=== PATIENT | female | born 1935 | race Caucasian/White ===

== ENCOUNTER → 2016-09-03 | Outpatient (CLI) | payer BC ==
[~2016-09-03] MED LIST: AMLO-114 PO; ASCO500T16 PO; CEPH500C PO; CHOL100010 PO; CHOL100041 PO; COEN150C4 PO; FSMD/70 PO; LOSA100T26 PO; MULT-506 PO; OMEG10007 PO; SIMV20TA2 PO
== END | disposition home or self-care (01) ==
LOC: C.PATHSPEC 17:42
PROVIDERS: ATTEND Plastic Surgery
DX: C44.529 Squamous cell carcinoma of skin of other part of trunk (principal); L82.1 Other seborrheic keratosis

== ENCOUNTER → 2016-10-06 | Outpatient (CLI) | payer BC ==
[2016-10-06 13:36] LABS: ESTIMATED AVERAGE GLUCOSE 126 mg/dl; HA1C FLAG Normal (Normal)
[2016-10-06 14:03] LABS: ALT/SGPT 28 U/L (12-78); AST/SGOT 15 U/L (15-37); BLOOD UREA NITROGEN 22 mg/dl (7-18); BUN/CREATININE RATIO 19.5 (10-20); CALCIUM 9.9 mg/dl (8.5-10.1); CARBON DIOXIDE 28 mmol/L (21-32); CHLORIDE 103 mmol/L (98-107); CHOLESTEROL 151 mg/dl (0-200); GLUCOSE 97 mg/dl (70-99); POTASSIUM 3.8 mmol/L (3.5-5.1); SODIUM 141 mmol/L (136-145); TRIGLYCERIDES 112 mg/dl (0-150); VERY LOW DENSITY LIPOPROT CALC 22 mg/dl
[2016-10-06 14:06] LABS: CHOLESTEROL/HDL RATIO 2.3; HDL CHOLESTEROL 65 mg/dl; LDL CHOLESTEROL CALCULATED 64 mg/dl
== END | disposition home or self-care (01) ==
LOC: C.LABPVFM 11:31
PROVIDERS: ATTEND Family Medicine
DX: I10 Essential (primary) hypertension (principal); E11.9 Type 2 diabetes mellitus without complications; E78.5 Hyperlipidemia, unspecified

== ENCOUNTER 2017-01-24 14:07 | Emergency (ER) | payer BC ==
[~2017-01-24] VITALS: Ht 180.3 cm; Wt 88.7 kg
[~2017-01-24 14:07] MED LIST changes: -AMLO-114 PO; -CEPH500C PO; -CHOL100041 PO; -COEN150C4 PO; -LOSA100T26 PO; +LOSA100T33 PO; -MULT-506 PO
[2017-01-24 14:13] VITALS: TEMP 36.6; Ht 180.3 cm; Wt 88.7 kg
[2017-01-24 14:44] LABS: BASO % 0.6 %; BASO ABS # 0.03 K/uL (0-0.2); COMPLETE YES; HEMATOCRIT 40.9 % (37-47); IG% 0.2 %; LYMPH % 29.4 %; LYMPH ABS # 1.56 K/uL (1.2-3.4); MEAN CELL VOLUME 92.7 fL (80-100); MEAN CORPUSCULAR HEMOGLOBIN 32.2 pg (25-34); MEAN CORPUSCULAR HGB CONC 34.7 g/dl (32-36); MEAN PLATELET VOLUME 9.5 fL (7.4-10.4); MONO % 7.2 %; NEUT % 58.6 %; PLATELET COUNT 262 K/uL (130-400); RED BLOOD COUNT 4.41 M/uL (4.2-5.4)
[2017-01-24 15:00] LABS: BUN/CREATININE RATIO 22.5 (10-20); CALCIUM 9.4 mg/dl (8.5-10.1); CREATININE 1.3 mg/dl (0.60-1.20)
[2017-01-24] MEDS ORDERED: OPTIRAY 320 IV PRN (15:00)
[2017-01-24 15:02] LABS: ALB/GLOB RATIO 1.3 (0.9-2)
[2017-01-24 15:10] LABS: MANUAL MICROSCOPIC REQUIRED? NO; REVIEW REQ? NO; URINE APPEARANCE CLEAR (CLEAR); URINE BILIRUBIN NEG (NEG); URINE COLOR YELLOW; URINE EPITHELIAL CELL AUTO >30 /lpf (0-5); URINE NITRITE NEG (NEG); URINE PH 5.5 (4.5-7.5); URINE SPECIFIC GRAVITY 1.015 (1.000-1.030); UROBILINOGEN NEG (NEG); ZZUR CULT IF INDIC CLEAN CATCH YES
[2017-01-24] MEDS ORDERED: AMLO-114 PO (15:46)
[2017-01-24] MEDS ORDERED: CHOL100041 PO (15:46)
[2017-01-24] MEDS ORDERED: COEN150C4 PO (15:46)
[2017-01-24] MEDS ORDERED: MULT-506 PO (15:46)
--- NOTE | 2017-01-24 15:49 | DIAGNOSTIC IMAGING REPORT ---
CT ANGIOGRAM OF THE ABDOMEN AND PELVIS CLINICAL HISTORY: Lower abdominal pain. COMPARISON STUDY: Ultrasound of the abdominal aorta dated 06/06/2013. TECHNIQUE: Following the IV administration of 119 cc of Optiray 320, CT angiogram of the abdomen and pelvis was performed from the lung bases the proximal femora. Images are reviewed in the axial, sagittal, and coronal planes. 3-D MIPS images are created and assessed. IV contrast was administered without complication. CT DOSE: 968.93 mGy.cm FINDINGS: Lower chest: The heart is enlarged and without pericardial effusion. The lung bases are clear. There is a tiny hiatal hernia. Liver: The contrast-enhanced liver is normal in size, contour, and attenuation. There is no intrahepatic or ductal dilatation. Gallbladder: Contracted. Spleen: Normal in size and attenuation noting heterogeneous arterial phase enhancement. Pancreas: Moderately atrophic and grossly unremarkable. Adrenal glands: Unremarkable. Kidneys: The contrast enhanced kidneys are atrophic and without hydronephrosis. The kidneys enhance symmetrically. Abdominal aorta and iliac arteries: There is advanced atherosclerotic calcification of the abdominal aorta. The proximal and mid portions of the abdominal aorta are normal in caliber. There is an infrarenal abdominal aneurysm located just above the iliac bifurcation. This measures 4.3 cm in AP diameter and 4.5 cm in transverse diameter. The aneurysm sac extends 5.8 cm in craniocaudal length. There is thrombus within the aneurysm sac. The minimal patent luminal diameter measures 2.3 cm. There is no evidence of aortic dissection. The common iliac arteries are mildly ectatic and widely patent. The external iliac arteries as well as the common femoral arteries are widely patent. 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 The iliac arteries are patent. 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 Major branches of the abdominal aorta: The celiac trunk and superior mesenteric artery are widely patent. The inferior mesenteric artery arises from the aneurysm sac and there is mild narrowing at its origin secondary to soft plaque. The hepatic artery arises directly from the abdominal aorta. The splenic artery is widely patent. The main renal arteries are widely patent. A tiny accessory renal artery seen on the left. Bowel: The small bowel and colon are normal in course and caliber. There is moderate colonic diverticulosis without CT evidence of acute diverticulitis. Mild colonic fecal retention is observed. The appendix is well-visualized and normal. A right sided ischiorectal hernia is suggested on axial image #441. Peritoneum: There is no intraperitoneal free air or abdominal ascites. Lymphadenopathy: None. Pelvic viscera: The bladder is normal as visualized. The uterus is surgically absent. No adnexal lesion is seen. Skeletal structures: The skeletal structures are osteopenic. There is moderate lumbar sacral spondylosis and scoliosis. Sclerotic change is noted in the sacroiliac joints and pubic symphysis. No lytic or blastic bony lesions are seen. IMPRESSION: 1. 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 There is no evidence of rupture. 2. 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 3. Findings suggest a right-sided ischiorectal hernia. There is no evidence of rectal obstruction. Clinical correlation will be essential. 4. Cardiomegaly. 5. Moderate colonic diverticulosis without CT evidence of acute diverticulitis. 6. Additional findings as above. Electronically signed by: José Sarmiento M.D. 01/24/2017 3:47 PM Dictated Date/Time: 01/24/2017 3:28 PM
[2017-01-24] MEDS ORDERED: CEFTRIAXONE SOD INJ 1 GM ADDVIAL IV STA (17:04)
--- NOTE | 2017-01-24 17:35 | EMERGENCY ROOM VISIT NOTE ---
History Report prepared by Xuan: Gurinder Valenzuela Under the Supervision of: Dr. Rita Judd D.O. First contact with patient: 14:18 Chief Complaint: ABDOMINAL PAIN Stated Complaint: STABBING PAIN IN STOMACH History of Present Illness The patient is an 81 year old female who presents to the Emergency Room with complaints of sharp, intermittent, mid-line lower abdominal pain beginning this morning. She currently denies any discomfort. The patient states that she woke up this morning with the abdominal pain that does not radiate to any other part of the body. She denies numbness, tingling, fevers, chills, urinary changes, changes in her bowel movement, chest pain, shortness of breath, medicine changes , taking blood thinners, previous heart problems, and taking medication for pain. The patient states that she did not have pain yesterday, and she has never experienced symptoms like this before. She reports that she has an ultrasound every six months for an aortic aneurysm. The patient states that the last ultrasound showed that the aorta measured 4.6cm. She notes that she has a history of hypertension and hypercholesterolemia. Pt denies any worsening back pain, numbness/tingling, LE edema, discoloration of the legs, or different temperature sensations. Source of History: patient Onset: this morning Position: abdomen (mid-line, lower) Quality: sharp Timing: intermittent Associated Symptoms: No SOB, No chest pain, No chills, No fevers, No urinary symptoms Note: Pt denies numbness, tingling, and changes in her bowel movement. Review of Systems See HPI for pertinent positives & negatives. A total of 10 systems reviewed and were otherwise negative. Past Medical & Surgical Medical Problems: (1) Hypertension Family History No pertinent family history recorded. Social History Smoking Status: Never Smoker Marital Status: Housing Status: lives with family Occupation Status: retired Current/Historical Medications Scheduled Alendronate/Cholecalciferol (Fosamax+D 70MG/2800 Iu), 1 TABLET PO WK Amlodipine (Norvasc), 10 MG PO QAM Cephalexin Monohydrate (Keflex), 500 MG PO BID Cholecalciferol (D 1000), 5,000 INTER.UNIT PO DAILY Coenzyme Q10 (Ubidecarenone) (Coq10), 150 MG PO DAILY Losartan Potassium & Hydrochlo (Losartan Potassium/Hydroc), 1 TABLET PO DAILY Multivitamin (Multivitamin), 1 TAB PO DAILY Simvastatin (Zocor), 20 MG PO QPM Allergies Coded Allergies: Sulfa Antibiotics (Unverified Allergy, Unknown, UNKNOWN, 01/24/17) Physical Exam Vital Signs Date Time Temp Pulse Resp B/P Pulse Ox O2 Delivery O2 Flow Rate FiO2 01/24/17 18:01 55 20 120/66 93 01/24/17 16:46 59 16 116/71 97 Room Air 01/24/17 15:28 67 16 109/58 98 Room Air 01/24/17 14:13 36.6 70 22 122/80 95 Room Air Physical Exam GENERAL: alert, well appearing, well nourished, no distress, non-toxic EYE EXAM: normal conjunctiva, PERRL and EOM's grossly intact OROPHARYNX: no exudate, no erythema, lips, buccal mucosa, and tongue normal and mucous membranes are moist NECK: supple, no nuchal rigidity, no adenopathy, non-tender LUNGS: Clear to auscultation. Normal chest wall mechanics, CTA, no w/r/r HEART: no murmurs, S1 normal and S2 normal ABDOMEN: abdomen soft, non-tender, normo-active bowel sounds, no masses, no rebound or guarding, no pulsatile mass BACK: Back is symmetrical on inspection and there is no deformity, no midline tenderness, no CVA tenderness. SKIN: no rashes and no bruising UPPER EXTREMITIES: upper extremities are grossly normal. LOWER EXTREMITIES: No pitting edema, nml cap refill, nml pulses, no discoloration, normal temperature to touch NEURO EXAM: cranial nerves II-XII grossly intact, normal speech, no gross weakness of arms, no gross weakness of legs. Normal sensory exam, no facial droop. Medical Decision & Procedures ER Provider Diagnostic Interpretation: CT:Per my review, radiologist interpretation. CT ANGIOGRAM OF THE ABDOMEN AND PELVIS CLINICAL HISTORY: Lower abdominal pain. COMPARISON STUDY: Ultrasound of the abdominal aorta dated 06/06/2013. TECHNIQUE: Following the IV administration of 119 cc of Optiray 320, CT angiogram of the abdomen and pelvis was performed from the lung bases the proximal femora. Images are reviewed in the axial, sagittal, and coronal planes. 3-D MIPS images are created and assessed. IV contrast was administered without complication. CT DOSE: 968.93 mGy.cm FINDINGS: Lower chest: The heart is enlarged and without pericardial effusion. The lung bases are clear. There is a tiny hiatal hernia. Liver: The contrast-enhanced liver is normal in size, contour, and attenuation. There is no intrahepatic or ductal dilatation. Gallbladder: Contracted. Spleen: Normal in size and attenuation noting heterogeneous arterial phase enhancement. Pancreas: Moderately atrophic and grossly unremarkable. Adrenal glands: Unremarkable. Kidneys: The contrast enhanced kidneys are atrophic and without hydronephrosis. The kidneys enhance symmetrically. Abdominal aorta and iliac arteries: There is advanced atherosclerotic calcification of the abdominal aorta. The proximal and mid portions of the abdominal aorta are normal in caliber. There is an infrarenal abdominal aneurysm located just above the iliac bifurcation. This measures 4.3 cm in AP diameter and 4.5 cm in transverse diameter. The aneurysm sac extends 5.8 cm in craniocaudal length. There is thrombus within the aneurysm sac. The minimal patent luminal diameter measures 2.3 cm. There is no evidence of aortic dissection. The common iliac arteries are mildly ectatic and widely patent. The external iliac arteries as well as the common femoral arteries are widely patent. 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 The iliac arteries are patent. 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 Major branches of the abdominal aorta: The celiac trunk and superior mesenteric artery are widely patent. The inferior mesenteric artery arises from the aneurysm sac and there is mild narrowing at its origin secondary to soft plaque. The hepatic artery arises directly from the abdominal aorta. The splenic artery is widely patent. The main renal arteries are widely patent. A tiny accessory renal artery seen on the left. Bowel: The small bowel and colon are normal in course and caliber. There is moderate colonic diverticulosis without CT evidence of acute diverticulitis. Mild colonic fecal retention is observed. The appendix is well-visualized and normal. A right sided ischiorectal hernia is suggested on axial image #441. Peritoneum: There is no intraperitoneal free air or abdominal ascites. Lymphadenopathy: None. Pelvic viscera: The bladder is normal as visualized. The uterus is surgically absent. No adnexal lesion is seen. Skeletal structures: The skeletal structures are osteopenic. There is moderate lumbar sacral spondylosis and scoliosis. Sclerotic change is noted in the sacroiliac joints and pubic symphysis. No lytic or blastic bony lesions are seen. IMPRESSION: 1. 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 There is no evidence of rupture. 2. 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 3. Findings suggest a right-sided ischiorectal hernia. There is no evidence of rectal obstruction. Clinical correlation will be essential. 4. Cardiomegaly. 5. Moderate colonic diverticulosis without CT evidence of acute diverticulitis. 6. Additional findings as above. Electronically signed by: José Sarmiento M.D. 01/24/2017 3:47 PM Dictated Date/Time: 01/24/2017 3:28 PM Laboratory Results 01/24/17 14:25 Red Blood Count 4.41, Mean Corpuscular Volume 92.7, Mean Corpuscular Hemoglobin 32.2, Mean Corpuscular Hemoglobin Concent 34.7, Mean Platelet Volume 9.5, Neutrophils (%) (Auto) 58.6, Lymphocytes (%) (Auto) 29.4, Monocytes (%) (Auto) 7.2, Eosinophils (%) (Auto) 4.0, Basophils (%) (Auto) 0.6, Neutrophils # (Auto) 3.11, Lymphocytes # (Auto) 1.56, Monocytes # (Auto) 0.38, Eosinophils # (Auto) 0.21, Basophils # (Auto) 0.03 01/24/17 14:25 Test 01/24/17 14:25 01/24/17 14:43 01/24/17 14:49 White Blood Count 5.30 K/uL (4.8-10.8) Red Blood Count 4.41 M/uL (4.2-5.4) Hemoglobin 14.2 g/dL (12.0-16.0) Hematocrit 40.9 % (37-47) Mean Corpuscular Volume 92.7 fL (80-100) Mean Corpuscular Hemoglobin 32.2 pg (25-34) Mean Corpuscular Hemoglobin Concent 34.7 g/dl (32-36) Platelet Count 262 K/uL (130-400) Mean Platelet Volume 9.5 fL (7.4-10.4) Neutrophils (%) (Auto) 58.6 % Lymphocytes (%) (Auto) 29.4 % Monocytes (%) (Auto) 7.2 % Eosinophils (%) (Auto) 4.0 % Basophils (%) (Auto) 0.6 % Neutrophils # (Auto) 3.11 K/uL (1.4-6.5) Lymphocytes # (Auto) 1.56 K/uL (1.2-3.4) Monocytes # (Auto) 0.38 K/uL (0.11-0.59) Eosinophils # (Auto) 0.21 K/uL (0-0.5) Basophils # (Auto) 0.03 K/uL (0-0.2) RDW Standard Deviation 45.7 fL (36.4-46.3) RDW Coefficient of Variation 13.4 % (11.5-14.5) Immature Granulocyte % (Auto) 0.2 % Immature Granulocyte # (Auto) 0.01 K/uL (0.00-0.02) Anion Gap 8.0 mmol/L (3-11) Est Creatinine Clear Calc Drug Dose 42.5 ml/min Estimated GFR () 44.9 Estimated GFR (Non- 38.7 BUN/Creatinine Ratio 22.5 (10-20) Calcium Level 9.4 mg/dl (8.5-10.1) Total Bilirubin 0.4 mg/dl (0.2-1) Aspartate Amino Transf (AST/SGOT) 16 U/L (15-37) Alanine Aminotransferase (ALT/SGPT) 28 U/L (12-78) Alkaline Phosphatase 92 U/L (45-117) Total Protein 7.9 gm/dl (6.4-8.2) Albumin 4.4 gm/dl (3.4-5.0) Globulin 3.5 gm/dl (2.5-4.0) Albumin/Globulin Ratio 1.3 (0.9-2) Lipase 127 U/L (73-393) Urine Color YELLOW Urine Appearance CLEAR (CLEAR) Urine pH 5.5 (4.5-7.5) Urine Specific [place] 1.015 (1.000-1.030) Urine Protein NEG (NEG) Urine Glucose (UA) NEG (NEG) Urine Ketones NEG (NEG) Urine Occult Blood NEG (NEG) Urine Nitrite NEG (NEG) Urine Bilirubin NEG (NEG) Urine Urobilinogen NEG (NEG) Urine Leukocyte Esterase TRACE (NEG) Urine WBC (Auto) 10-30 /hpf (0-5) Urine RBC (Auto) 0-4 /hpf (0-4) Urine Hyaline Casts (Auto) 1-5 /lpf (0-5) Urine Epithelial Cells (Auto) >30 /lpf (0-5) Urine Bacteria (Auto) 1+ (NEG) Lactic Acid Level 1.5 mmol/L (0.4-2.0) Laboratory results per my review. Medications Administered Medications (Trade) Dose Ordered Sig/Wiley Route Start Time Stop Time Status Last Admin Dose Admin Ceftriaxone Sodium (Rocephin Inj) 1 gm NOW STAT IV 01/24/17 17:04 01/24/17 17:05 DC 01/24/17 17:10 1 GM ECG Indication: abdominal pain Rate (beats per minute): 77 Rhythm: normal sinus Findings: 1st degree AV block, PVC (occasional), no acute ischemic change ED Course 1425: The patient was evaluated in room B06. A complete history and physical exam was performed. 1704: Ordered Rocephin Inj 1gm IV 1715: I reevaluated the patient and updated her on her exam findings. She has not had any abdominal pain since she has been here. I discussed the treatment plan with her, and she verbalized complete understanding. The patient was discharged home. 1727: I discussed the patient's case with Dr. Sarmiento, Radiology. Medical Decision Differential diagnosis: Etiologies such as appendicitis, diverticulitis, PUD, biliary pathology, UTI, pancreatitis, obstruction, mesenteric ischemia, aortic pathology, infections, inflammatory bowel disease, renal colic, as well as others were entertained. AAA stable compared to known measurements by family from outpt US. Pt follows with vascular every 6 months. Other vascular findings from CT were discussed with pt and family. Likely chronic given lack of other symptoms, family given copy of report. Given that we are unable to contract Dr. Carlson currently for another pt in the ED, advised pt to call the beginning of the week. No recurrence of pain while in the ED. VS stable. Doubt occult dissection or leaking AAA. More likely related to constipation and possible early UTI. Urine culture sent as a precaution and pt started on antibiotics. Daughter in law states pt is supposed to be taking meds to help with her BM's and she doesn' t. Pt states goes every couple days, but had a normal BM this am. Pt well appearing tolerating po at bedside. Pt and family aware of all results, discussed need for close f/u with PCP and vascular, sx to watch/return for, they verbalized understanding and were agreeable with plan, Consults Time Called: 1723 Consulting Physician: Dr. Sarmiento, Radiology Returned Call: 1726 I discussed the patient's case with Dr. Sarmiento, Radiology. Impression Primary Impression: Lower abdominal pain Additional Impressions: UTI (urinary tract infection) Constipation AAA (abdominal aortic aneurysm) Scribe Attestation The scribe's documentation has been prepared under my direction and personally reviewed by me in its entirety. I confirm that the note above accurately reflects all work, treatment, procedures, and medical decision making performed by me. Departure Information Dispostion Home / Self-Care Prescriptions Cephalexin Monohydrate (Keflex) 500 Mg Cap 500 MG PO BID for 7 Days, #14 CAP Prov: Rita Judd, DO 01/24/17 Referrals Marshall Coreas M.D. (PCP) Patient Instructions My [facility] Additional Instructions Please call and follow-up with your family doctor and with Dr. Carlson next week. Please take the antibiotics as prescribed. Please restart your medications for constipation and make sure you are drinking plenty of water. If you have recurrent abdominal pain, develop fevers/chills, dizziness, numbness /tingling in your legs, swelling in your legs, discoloration of your legs/ abdomen, back pain, vomiting, or you have any other new or concerning symptoms, please return to the emergency room. Problem Qualifiers Additional Impressions: UTI (urinary tract infection) Urinary tract infection type: acute cystitis Hematuria presence: without hematuria Qualified Codes: N30.00 - Acute cystitis without hematuria Constipation Constipation type: unspecified constipation type Qualified Codes: K59.00 - Constipation, unspecified AAA (abdominal aortic aneurysm) Presence of rupture: without rupture Qualified Codes: I71.4 - Abdominal aortic aneurysm, without rupture
[2017-01-24] MEDS ORDERED: CEPH500C PO (17:38)
[2017-01-24 18:01] VITALS: BP 120/66; PULSE 55; O2SAT 93
== END 2017-01-24 18:03 | disposition home or self-care (01) ==
LOC: C.EDB 14:08
DX: N39.0 Urinary tract infection, site not specified (principal); K59.00 Constipation, unspecified; I71.4 Abdominal aortic aneurysm, without rupture; I10 Essential (primary) hypertension; E78.00 Pure hypercholesterolemia, unspecified; Z79.899 Other long term (current) drug therapy

== ENCOUNTER → 2017-02-02 | Outpatient (CLI) | payer BC ==
[~2017-02-02] MED LIST changes: +AMLO-114 PO; -ASCO500T16 PO; -CHOL100010 PO; +CHOL100041 PO; +COEN150C4 PO; +MULT-506 PO; -OMEG10007 PO
--- NOTE | 2017-02-02 13:16 | MAMMOGRAPHY REPORT ---
BILATERAL DIGITAL SCREENING MAMMOGRAM WITH CAD: 02/02/2017 CLINICAL HISTORY: Routine screening. Patient has no complaints. TECHNIQUE: Bilateral CC, MLO and axial views were obtained. Current study was also evaluated with a Computer Aided Detection (CAD) system. COMPARISON: Comparison is made to exams dated: 01/29/2016 mammogram, 01/24/2015 mammogram, 01/20/2014 m ammogram, 01/19/2013 mammogram, 01/19/2012 mammogram, and 01/15/2011 mammogram - [facility] enter. BREAST COMPOSITION: The tissue of both breasts is almost entirely fatty. FINDINGS: There are stable benign-appearing calcifications within the right breast. No new suspiciou s mass, architectural distortion or cluster of microcalcifications is seen. IMPRESSION: ACR BI-RADS CATEGORY 1: NEGATIVE There is no mammographic evidence of malignancy. A 1 year screening mammogram is recommended. The pa tient will receive written notification of the results. Approximately 10% of breast cancers are not detected with mammography. A negative mammographic report should not delay biopsy if a clinically suggestive mass is present. Gisell Randolph M.D. ay/:02/02/2017 09:22:33 Maintenance Truck Driver: Lopez MILLS(July)(Antonio), [facility] letter sent: Normal 1/2 BI-RADS Code: ACR BI-RADS Category 1: Negative
== END | disposition home or self-care (01) ==
LOC: C.MAMM 08:33
PROVIDERS: ATTEND Family Medicine
DX: Z12.31 Encounter for screening mammogram for malignant neoplasm of breast (principal)

== ENCOUNTER → 2017-02-12 | Outpatient (CLI) | payer BC | END | disposition home or self-care (01) | LOC: C.LABPVFM 17:43 | PROVIDERS: ATTEND Nurse Practitioner | DX: R30.0 Dysuria (principal) ==

== ENCOUNTER → 2017-03-10 | Outpatient (CLI) | payer BC ==
[~2017-03-10] MED LIST changes: +LOSA100T26 PO; -LOSA100T33 PO
== END | disposition home or self-care (01) ==
LOC: C.PATHSPEC 16:47
PROVIDERS: ATTEND Dermatology
DX: L57.0 Actinic keratosis (principal); B07.9 Viral wart, unspecified

== ENCOUNTER → 2017-06-22 | Outpatient (CLI) | payer BC ==
[~2017-06-22] MED LIST changes: -LOSA100T26 PO; +LOSA100T33 PO
[2017-06-22 13:26] LABS: ESTIMATED AVERAGE GLUCOSE 123 mg/dl; HA1C FLAG Normal (Normal)
[2017-06-22 13:54] LABS: BLOOD UREA NITROGEN 23 mg/dl (7-18); BUN/CREATININE RATIO 21.3 (10-20); CALCIUM 9.6 mg/dl (8.5-10.1); CARBON DIOXIDE 30 mmol/L (21-32); CHLORIDE 105 mmol/L (98-107); CHOLESTEROL 136 mg/dl (0-200); CREATININE 1.06 mg/dl (0.60-1.20); GLUCOSE 102 mg/dl (70-99); POTASSIUM 3.8 mmol/L (3.5-5.1); SODIUM 141 mmol/L (136-145)
[2017-06-22 13:58] LABS: CHOLESTEROL/HDL RATIO 2.1; HDL CHOLESTEROL 66 mg/dl; LDL CHOLESTEROL CALCULATED 55 mg/dl; TRIGLYCERIDES 73 mg/dl (0-150); VERY LOW DENSITY LIPOPROT CALC 15 mg/dl
== END | disposition home or self-care (01) ==
LOC: C.LABPVFM 08:33
PROVIDERS: ATTEND Family Medicine
DX: R73.09 Other abnormal glucose (principal); E78.5 Hyperlipidemia, unspecified; I10 Essential (primary) hypertension

== ENCOUNTER → 2017-09-03 | Outpatient (CLI) | payer BC ==
[~2017-09-03] MED LIST changes: -AMLO-114 PO; +AMLO10TA3 PO; +AZIT250T PO; +CEFD300C2 PO
== END | disposition home or self-care (01) ==
LOC: C.LABSPEC 17:41
PROVIDERS: ATTEND Urology
DX: N39.46 Mixed incontinence (principal); N39.0 Urinary tract infection, site not specified

== ENCOUNTER → 2017-12-24 | Outpatient (CLI) | payer BC, OTHER ==
[~2017-12-24] MED LIST changes: +AMLO-114 PO; -AMLO10TA3 PO; -LOSA100T33 PO
[2017-12-24 12:59] LABS: BASO % 0.7 %; BASO ABS # 0.04 K/uL (0-0.2); EOS ABS # 0.12 K/uL (0-0.5); HEMATOCRIT 37.5 % (37-47); IG# 0.09 K/uL (0.00-0.02); LYMPH % 20.1 %; LYMPH ABS # 1.21 K/uL (1.2-3.4); MEAN CELL VOLUME 90.8 fL (80-100); MEAN CORPUSCULAR HEMOGLOBIN 31.5 pg (25-34); MEAN CORPUSCULAR HGB CONC 34.7 g/dl (32-36); MEAN PLATELET VOLUME 9.2 fL (7.4-10.4); MONO % 14.5 %; MONO ABS # 0.87 K/uL (0.11-0.59); NEUT % 61.2 %; NEUT ABS # 3.69 K/uL (1.4-6.5); PLATELET COUNT 314 K/uL (130-400); RED CELL DISTRIBUTION WIDTH CV 13.5 % (11.5-14.5); RED CELL DISTRIBUTION WIDTH SD 44.4 fL (36.4-46.3); WHITE BLOOD COUNT 6.02 K/uL (4.8-10.8)
[2017-12-24 13:30] LABS: BLOOD UREA NITROGEN 13 mg/dl (7-18); CARBON DIOXIDE 30 mmol/L (21-32); CREATININE 0.89 mg/dl (0.60-1.20); GLUCOSE 97 mg/dl (70-99); SODIUM 136 mmol/L (136-145)
== END | disposition home or self-care (01) ==
LOC: C.LABPVFM 10:02
PROVIDERS: ATTEND Nurse Practitioner Family
DX: J18.9 Pneumonia, unspecified organism (principal)

== ENCOUNTER 2020-03-15 15:26 | Observation (INO) ==
[2020-03-15] MEDS ORDERED: ONDANSETRON INJ 2 MG/ML 2 ML VIAL IV STA (15:37)
[2020-03-15] MEDS ORDERED: MoRPHine SULFATE 2 MG/ML CARP IV STA (15:37)
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
[2020-03-15 15:56] LABS: Basophils # (auto) 0.03 K/uL (0-0.2); Basophils % (auto) 0.5 %; Eosinophils # (auto) 0.26 K/uL (0-0.5); Eosinophils % (auto) 4.6 %; Hemoglobin 13.3 g/dL (12.0-16.0); Immature Granulocytes # (auto) 0.02 K/uL (0.00-0.02); Immature Granulocytes % (auto) 0.4 %; Lymphocytes # (auto) 1.54 K/uL (1.2-3.4); Lymphocytes % (auto) 27.5 %; Mean Corpuscular Hemoglobin 31.1 pg (25-34); Mean Corpuscular Hgb Conc 34.1 g/dL (32-36); Mean Corpuscular Volume 91.3 fL (80-100); Mean Platelet Volume 9.4 fL (7.4-10.4); Monocytes # (auto) 0.56 K/uL (0.11-0.59); Platelet Count 209 K/uL (130-400); RDW Coefficient of Variation 13.5 % (11.5-14.5); RDW Standard Deviation 44.7 fL (36.4-46.3); Red Blood Count 4.27 M/uL (4.2-5.4); White Blood Count 5.61 K/uL (4.8-10.8)
--- NOTE | 2020-03-15 16:09 | XRay Report ---
XR hip LT min 2V CLINICAL HISTORY: EVAL FOR FX trauma. Pain. COMPARISON: None. DISCUSSION: Compromise patient positioning. High suspicion of a fracture of the left femoral neck. Sl ight superior migration left femoral shaft. No evidence for dislocation or acetabular protrusion. The re is no evidence for soft tissue swelling. IMPRESSION: Fracture left femoral neck within limitations of patient positioning. No evidence for dis location. ACT 112: Negative or not required by law. The above report was generated using voice recognition software. It may contain grammatical, syntax or spelling errors. Electronically signed by: Simba Salcedo M.D. 03/15/2020 4:08 PM
--- NOTE | 2020-03-15 16:11 | XRay Report ---
XR chest 1V portable CLINICAL HISTORY: weakness dyspnea COMPARISON STUDY: 12/19/2017 FINDINGS: The bones soft tissues and hemidiaphragms are normal. The cardiomediastinal silhouette is n ormal. The lungs are clear. The pulmonary vasculature is normal. Possible lytic defect proximal right humerus versus artifact. IMPRESSION: 1. No acute process in the chest. 2. Artifact versus lytic defect proximal right humeral shaft. 3. A right shoulder series is suggested as follow-up. ACT 112: Negative or not required by law. The above report was generated using voice recognition software. It may contain grammatical, syntax or spelling errors. Electronically signed by: Simba Salcedo M.D. 03/15/2020 4:10 PM
[2020-03-15 16:12] LABS: BUN Creatinine Ratio 21.1 (10-20); Calcium 9.2 mg/dl (8.5-10.1); Creatinine Clr Calc Pharmacy 50.6 ml/min; Est GFR (African American) 58.2; Est GFR (Non-African American) 50.2; Potassium 3.7 mmol/L (3.5-5.1)
[2020-03-15 16:13] LABS: Albumin Globulin Ratio 1.4 (0.9-2); Bilirubin,Total 0.4 mg/dl (0.2-1)
[2020-03-15] MEDS ORDERED: POLYETHYLENE (MIRALAX) 17 GM PACK PO PRN (17:05)
[2020-03-15] MEDS ORDERED: MoRPHine SULFATE 4 MG/ML 1 ML CARP\\VIAL IV PRN (17:05)
[2020-03-15] MEDS ORDERED: NALOXONE HCL 0.4 MG/1 ML VIAL/CARP IV PRN (17:05)
[2020-03-15] MEDS ORDERED: ONDANSETRON INJ 2 MG/ML 2 ML VIAL IV PRN (17:05)
[2020-03-15] MEDS ORDERED: ACETAMINOPHEN 325 MG TAB PO PRN (17:05)
[2020-03-15] MEDS ORDERED: MAGNESIUM HYDROXIDE SUSP 30 ML UDC PO PRN (17:05)
[2020-03-15] MEDS ORDERED: bisacodyL 10 MG SUPP PR PRN (17:05)
[2020-03-15 18:21] LABS: Appearance Urine Clear (Clear); Bacteria Urine Automated 1+ (Negative); Bilirubin Urine Negative (Negative); Blood Urine Negative (Negative); Color Urine Yellow; Epithelial Cell Urine Auto >30 /lpf (0-5); Glucose Urine UA Negative (Negative); Ketones Urine Negative (Negative); Leukocyte Esterase Urine Trace (Negative); Nitrite Urine Negative (Negative); Protein Urine Negative (Negative); RBC Urine Automated 0-4 /hpf (0-4); Specific Gravity Urine 1.015 (1.000-1.030); Urobilinogen Urine Negative (Negative); pH Urine 7.5 (4.5-7.5)
[2020-03-15] MEDS: MoRPHine SULFATE 2 MG/ML CARP IV PRN (19:06)
[2020-03-15 20:20] LABS: Prothrombin Time 10.9 Seconds (9.0-12.0)
--- NOTE | 2020-03-15 21:34 | Consultation Report ---
DATE OF CONSULTATION: 03/15/2020 ORTHOPEDIC CONSULTATION CHIEF COMPLAINT: Left hip pain. HISTORY OF PRESENT ILLNESS: The patient is an 84-year-old female who normally uses a cane to ambulate, who sustained a mechanical fall earlier today. She is not exactly sure what happened. She recently got an immunization shot and was walking out of the [employer] when she lost her balance and fell. Her leg twisted underneath her and she had acute onset of pain and could not walk afterwards. She says this is the worst pain she has ever had. Denies any history of hip problems before. She was brought to the Emergency Room by ambulance. X-rays show a displaced femoral neck fracture. We were consulted for evaluation. No other injuries. Denies any head injury, no loss of consciousness, no neck pain. Just isolated left thigh, groin and knee pain. She does have an abrasion to her knee. PAST MEDICAL HISTORY: Significant for: 1. Low back pain. 2. Cellulitis, left lower extremity. 3. History of pneumonia. 4. COPD. 5. Skin cancer. REVIEW OF SYSTEMS: Remainder of the review of systems as per the admission H and P. OBJECTIVE: VITAL SIGNS: Temperature 37.0. Vital signs are stable. General musculoskeletal exam reveals a pleasant, awake, alert and appropriate elderly female. Looks to be in good health. She is lying in bed, looks pretty comfortable. She has full and painless range of motion of her cervical, thoracic and lumbar spine. She has got full painless range of motion of both upper extremities and the right lower extremity. Examination of the left lower extremity reveals an abrasion on the front of her left knee. Some mild swelling in this area. She holds her leg shortened and externally rotated. She can dorsiflex and plantarflex her foot. Any movement of the hip causes severe pain. No significant knee effusion. X-RAYS: X-rays of the left hip from the Emergency Room were reviewed. X-rays show a displaced femoral neck fracture. No major detectable arthritic change. Chest X-ray - question of lesion of right proximal humerus ASSESSMENT: An 84-year-old female with an acute left displaced femoral neck fracture from a fall. She has been admitted by the medicine service and being medically optimized. PLAN: We talked about treatment options. Certainly, this is something that is best treated surgically. We are going to proceed with a left cemented bipolar hip arthroplasty. The risks and benefits of this procedure were explained to the patient including but not limited to DVT, PE, , infection, neurological injury, vascular injury, bleeding problems, nonunion, malunion, dislocation, need for further surgery in the future, persistent pain, etc. The patient understands and desires to proceed. Informed consent was obtained. We will begin DVT prophylaxis including thigh-high TEDs and SCDs. We will hold the heparin now until her surgery is over and likely use aspirin for DVT prophylaxis. We will get a right shoulder x-ray to determine the significance of the questionable lesion in the proximal right humerus. Likely artifact. MTDD
[2020-03-15] MEDS: DOCUSATE SODIUM/SENNA 50/8.6MG TAB PO SCH (21:55)
[2020-03-15] MEDS: SIMVASTATIN 20 MG TAB PO SCH (21:55)
[2020-03-15] MEDS: METHENAMINE HIPPURATE 1 GM TAB PO SCH (21:55)
[2020-03-15] MEDS ORDERED: HEPARIN SOD 5,000 UNIT/0.5 ML VIAL SQ SCH (22:00)
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
[2020-03-15] MEDS ORDERED: LEVALBUTEROL HCL 1.25 MG/3 ML NEB NEB PRN (23:35)
[2020-03-16] MEDS ORDERED: ROPIVACAINE 0.5% HCL/PF 150 MG, BUPIVACAINE 0.5% MPF 30 ML, EPINEPHrine 30MG/30ML (OR U... INSTIL SCH (06:00)
--- NOTE | 2020-03-16 06:21 | XRay Report ---
XR shoulder RT min 2V routine CLINICAL HISTORY: Rule out humeral neck/head lesion. COMPARISON: Chest series 03/15/2020 DISCUSSION: Considerable degenerative change right shoulder. Secondary evidence for rotator cuff dete rioration. No lytic or blastic process. The appearance on the chest series appears to be artifactual. There is no evidence for soft tissue sw elling. IMPRESSION: Degenerative change. No lytic or blastic process. ACT 112: Negative or not required by law. The above report was generated using voice recognition software. It may contain grammatical, syntax or spelling errors. Electronically signed by: Simba Salcedo M.D. 03/16/2020 6:19 AM
--- NOTE | 2020-03-16 06:44 | History & Physical Bridge Note ---
Date of Service March 16, 2020 History & Physical Bridge Note I have examined the patient, reviewed the History & Physical and in the interval since the performance of the History & Physical I have noted the following changes of clinical significance: no changes noted
[2020-03-16] MEDS ORDERED: COENZYME Q10 150 MG PO SCH (09:00)
[2020-03-16] MEDS: amLODIPine BESYLATE 5 MG TAB PO SCH (10:03)
[2020-03-16] MEDS: MoRPHine SULFATE 2 MG/ML CARP IV PRN (10:05)
[2020-03-16] MEDS: LACTATED RINGER'S 1,000 ML IV SCH ×2 (10:06→20:02)
[2020-03-16] MEDS ORDERED: MIDAZOLAM HCL 1 MG/ML 2ML VIAL ONE (12:53)
[2020-03-16] MEDS ORDERED: fentaNYL citrate 100 MCG/2 ML VIAL ONE (12:54)
--- NOTE | 2020-03-16 13:00 | Electrocardiogram Report ---
Test Reason : Blood Pressure : / mmHG Vent. Rate : 068 BPM Atrial Rate : 068 BPM P-R Int : 230 ms QRS Dur : 090 ms QT Int : 432 ms P-R-T Axes : 089 007 034 degrees QTc Int : 459 ms Poor data quality, interpretation may be adversely affected Sinus rhythm with 1st degree A-V block Otherwise normal ECG When compared with ECG of 19-DEC-2017 13:53, Premature ventricular complexes are no longer Present RI interval has increased Confirmed by Felix Watson ([id number]) on 03/16/2020 12:59:43 PM Referred By: REFERRED SELF Confirmed By:Juancarlos Watson
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
[2020-03-16] MEDS ORDERED: fentaNYL citrate 100 MCG/2 ML VIAL IV PRN (13:39)
[2020-03-16] MEDS ORDERED: ATROPINE SULFATE 0.1 MG/ML 10ML SYR IV PRN (13:39)
[2020-03-16] MEDS ORDERED: HYDROmorphone INJ 1 MG/ML SYRINGE IV PRN (13:39)
[2020-03-16] MEDS ORDERED: ePHEDrine sulfate 50 MG/ML AMP IV PRN (13:39)
[2020-03-16] MEDS ORDERED: ONDANSETRON INJ 2 MG/ML 2 ML VIAL IV PRN (13:39)
[2020-03-16] MEDS ORDERED: ORTHO JOINT ANESTHETIC ONE (14:02)
[2020-03-16] MEDS ORDERED: BUPIVACAINE 0.5 % 5 MG/1 ML PF 10ML VIAL ONE (14:09)
[2020-03-16] MEDS ORDERED: ceFAZolin 2,000 MG/15 ML IV PUSH IV ONE (14:25)
[2020-03-16] MEDS ORDERED: LIDOCAINE HCL 2% 2 ML VIAL/AMP(20MG/ML) INFIL ONE (15:42)
[2020-03-16] MEDS ORDERED: ONDANSETRON INJ 2 MG/ML 2 ML VIAL ONE ×2 (15:42→16:15)
[2020-03-16] MEDS ORDERED: PROPOFOL IV EMULSION 10 MG/ML 20 ML VIAL IV ONE (15:42)
[2020-03-16] MEDS ORDERED: TRANEXAMIC ACID / 0.7% NACL 1,000 MG/100 ML BAG IV STA (15:43)
[2020-03-16] MEDS ORDERED: TRANEXAMIC ACID / 0.7% NACL 1000MG/100ML BAG IV ONE (15:45)
[2020-03-16] MEDS ORDERED: ePHEDrine sulfate 50 MG/ML AMP ONE (16:15)
--- NOTE | 2020-03-16 16:26 | Operative Report ---
PG Post Operative Report Pre & Post Diagnosis Operation Date: 03/16/20 11:40 Pre-Op Diagnosis: Displaced left femoral neck fracture Post-Op Diagnosis: Displaced left femoral neck fracture I identified the patient and participated in the time-out.: Yes Procedure Operation Date: 03/16/20 11:40 Actual Procedures p Left hip hemiarthroplasty(Left) - Gen Jean DO Surgeon Gen Jean DO Acquisition Advisor Gen Fay PAC Estimated Blood Loss 150 Findings Consistent with Post-Op Diagnosis Specimens Left femoral head Complications none Disposition Disposition: Recovery Room Indications Rachelle is a pleasant 84-year-old female who fell yesterday directly onto her left hip. She had severe hip pain. She came to the emergency room and x-rays and clinical examination were diagnostic for a displaced femoral neck fracture. She was admitted to the hospital. Orthopedics was consulted to evaluate and treat. After discussions at bedside, she elected proceed with a left hip hemiarthroplasty. Description of Procedure Implants used: I used a Biomet Taperloc total hip arthroplasty system with a size 15 high offset micro Taperloc stem, a size 49 mm bipolar shell with a 28 mm head and a 0 neck. On March 16, 2020 Rachelle was brought down from her hospital room to the preoperative holding area. The operative extremity was identified and signed. She was given a preoperative antibiotic. She was taken back to the operating room and given a spinal anesthetic. She was then laid on the table in the supine position. She was given basic sedation. The left leg was brought out through a Purist leg positioner. The left hip was then prepped and draped in sterile fashion. A timeout was done. The patient and the operative extremity was properly identified. An anterior approach was used. Dissection was taken down through the fascia and the rectus was retracted medially and the tensor fascia was retracted laterally. The circumflex vessels were ligated. The capsule was exposed. The capsule was then incised and tagged for later repair. The fracture was visualized. The femoral neck was resected. The femoral neck was removed. The femoral head was then removed. The acetabulum was inspected and there was no arthritis or damage within the acetabulum. The femoral head measured to be a size 49. The proximal femur was then exposed. Sequential broaching up to a size 15 broach was done. Off that broach a high offset neck and a standard 49 mm bipolar head was placed. The hip was reduced. Fluoroscopic x-rays showed anatomic alignment of the hip. The hip was then dislocated. The broach was removed. The final size 15 high offset micro Taperloc stem was then impacted into place. A standard 28 mm head was then impacted on the stem. The 49 mm shell was then placed on the head. The hip was then reduced. Final fluoroscopic images showed anatomic alignment. The wound was then irrigated. Surrounding soft tissues were injected with 100 cc of an orthopedic pain control cocktail. I did a 3-minute Betadine lavage. The fascia was then closed with #1 Prolene suture. The deep fat layer was closed with 2-0 Vicryl suture. Skin was closed with 3-0 Vicryl and abner. A Silverlon dressing was placed. She was then transferred to a hospital bed and taken to the postanesthesia care unit in stable condition. She tolerated the procedure well. Gen Fay PA-C, was present for the entire procedure. He was critical for patient positioning, prepping, draping, retraction exposure, wound closure and application of sterile dressing. I attest to the content of the Intraoperative Record and any orders documented therein. Any exceptions are noted below.
--- NOTE | 2020-03-16 16:28 | Fluoroscopy Report ---
FL hip LT 1V HISTORY: 84 years-old Female LT ANTERIOR TOTAL left hip total joint arthroplasty COMPARISON: Left hip radiographs 03/15/2020 TECHNIQUE: One spot fluoroscopic image of the left hip was obtained utilizing 14.4 seconds fluoroscop y time FINDINGS: Left hip total joint arthroplasty and straight satisfactory alignment. No acute fracture. Expected po stoperative soft tissue swelling and deep tissue air. Hemostats overlie the left proximal femur, like ly external to the patient. IMPRESSION: Fluoroscopic assistance as above. Please see operative report for further details. ACT 112: Negative or not required by law. The above report was generated using voice recognition software. It may contain grammatical, syntax o r spelling errors. Electronically signed by: Pepiot Hilliard M.D. 03/16/2020 4:26 PM
--- NOTE | 2020-03-16 17:11 | Anesthesiology Progress Note ---
Date of Service March 16, 2020 Anesthesia Post Procedure Vital Signs Vital Signs: Temp Pulse Pulse Resp BP BP Pulse Ox 03/16/20 13:16 37.1 C 72 20 127/58 L 93 03/16/20 07:25 36.8 C 60 16 154/80 H 95 03/16/20 04:00 36.8 C 60 16 133/63 92 03/16/20 00:06 36.7 C 62 14 147/76 H 92 03/15/20 18:00 37 C 82 18 164/87 H 93 03/15/20 17:35 64 18 154/86 H 95 Pain Intensity Left Hip: Pain Intensity: 4 Transfer of Care Handoff Completed per policy Notes Mental Status: alert / awake / arousable and participated in evaluation Patient Amnestic to Procedure: Yes Nausea / Vomiting: adequately controlled Pain: adequately controlled Airway Patency, RR, SpO2: stable & adequate BP & HR: stable & adequate Hydration State: stable & adequate Neuraxial Anesthesia: was administered and sensory block is resolving Anesthetic Complications: no major complications apparent and Pt Satisfied with anesthetic care
--- NOTE | 2020-03-16 17:17 | XRay Report ---
XR hip LT min 2V HISTORY: 84 years-old Female Post-Operative implant position [total joint arthroplasty COMPARISON: Left hip radiographs 03/15/2020 TECHNIQUE: 2 views of the left hip FINDINGS: Left hip total joint arthroplasty demonstrates satisfactory alignment. No acute fracture no retained foreign body identified. Lateral skin abner are noted with expected postoperative soft tissue swell ing and deep tissue air. IMPRESSION: Left hip total joint arthroplasty with expected postoperative findings. ACT 112: Negative or not required by law. The above report was generated using voice recognition software. It may contain grammatical, syntax o r spelling errors. Electronically signed by: Pepito Hilliard M.D. 03/16/2020 5:16 PM
[2020-03-16] MEDS: CHOLECALCIFEROL 1,000 UNITS 25 MCG TAB PO SCH (18:43)
[2020-03-16] MEDS: D5W AND 1/2NSS 1,000 ML IV SCH (19:17)
--- NOTE | 2020-03-16 19:55 | Hospitalist Progress Note ---
Date of Service March 16, 2020 Assessment & Plan (1) Fall: Revisited history with the patient. Concerning she does not completely remember the fall, however since she has not fallen in the last year and no concerning symptoms prior to falling no further work-up is planned for this currently however urine culture is still pending at this time. Chest x-ray -no acute process in the chest Lab work otherwise unremarkable. (2) Left displaced femoral neck fracture: Appreciate orthopedic management with planned left cemented bipolar hip arthroplasty She is medically optimized for surgery at this time Continue morphine as needed for pain medication preoperatively Start LR @ 125 ml/hr (3) COPD (chronic obstructive pulmonary disease): Albuterol PRN No acute exacerbation (4) Osteoporosis: T score -2.5. Continue plan follow-up with rheumatology given Fosamax use since 2015. Vitamin D level in a.m. continue vitamin D3 supplementation 5000 units p.o. daily for now. (5) Urinary tract infection, recurrent: No current infection. Continue on her usual mesalamine 1 g p.o. every afternoon (6) AAA (abdominal aortic aneurysm): Stable as per prior vascular note. (7) Benign essential hypertension: Continue amlodipine 10 mg p.o. daily (8) DVT prophylaxis: Will defer postoperative chemical DVT prophylaxis to orthopedics. Continue SCDs on nonoperative leg Admission and Anticipated Discharge Date Admission Date: March 15, 2020 Subjective Patient seen preoperatively. No concerns or questions at this time. Revisited history of the fall and she believes she tripped on a curb. Although she does not remember the exact circumstances surrounding this, she denies any dizziness, chest pain, shortness of breath prior to the fall. Left hip pain severity 6/10. She is holding her left leg with hip flexed knee flexed and external rotation. She denies any other falls in the last year. She denies any previous cardiac history. On chart review she has an abdominal aortic aneurysm which is been stable for at least the last 12 month, as per previous vascular note. She has a diagnosis of COPD but only uses albuterol as needed and is on no maintenance inhalers. She takes mesalamine 1g p.o. every afternoon for UTI prophylaxis but reports no urinary symptoms prior to this fall. Discussed Fosamax use. She has been on this since 2016. Recent DEXA scan showed osteoporosis in her left hip T score -2.5. She is currently awaiting rheumatology appointment for further management of this. Takes vitamin D supplementation daily Review of Systems Review of Systems: All systems reviewed & are unremarkable except as noted in HPI & below Physical Exam Constitutional: well developed and well nourished; no acute distress Eyes: + anicteric sclerae; normal pupil size ENMT: external ear and nose normal, oropharynx normal Neck: normal visual inspection and trachea midline Respiratory: normal respiratory effort, lungs clear to auscultation Cardiovascular: RRR, no murmur, no edema Gastrointestinal (Abdomen): Inspection/Auscultation: abdomen normal to inspection and normal bowel sounds; abdomen not distended Percussion/Palpation: abdomen soft; abdomen nontender, no guarding and abdomen not rigid Musculoskeletal: no cyanosis or clubbing, extremities motor strength 5/5 Skin: no rashes, warm and dry Neurologic: moves all extremities and awake; no focal motor deficits (Left lower extremity distally) and not confused Psychiatric: A+Ox3, euthymic affect Results & Data Results & Data ([facility]) Vital Signs (Past 12 Hours) Vital Signs Temp Pulse Pulse Resp BP BP Pulse Ox 03/16/20 18:46 36.6 C 77 18 140/78 96 03/16/20 18:00 36.4 C L 73 21 133/69 95 03/16/20 17:50 36.6 C 72 18 136/72 94 03/16/20 17:35 65 14 134/67 92 03/16/20 17:25 36.5 C 72 16 123/66 92 03/16/20 17:15 76 16 126/67 93 03/16/20 17:05 83 20 127/66 96 03/16/20 16:55 88 20 132/63 98 03/16/20 16:45 36.4 C L 95 H 20 129/69 99 03/16/20 13:16 37.1 C 72 20 127/58 L 93 PG Care Time/CCT Total # of Minutes Spent Total Time Spent with Patient: Total time spent is greater than 50% in coordination of care (as documented) at patient's floor/unit and/or counseling patient: Coding Level of Care Code 74373 Subseq Hosp Care Lvl 2 Diagnoses Fall W19.XXXA Encounter type: initial encounter Left displaced femoral neck fracture S72.002A COPD (chronic obstructive pulmonary disease) J44.9 COPD type: unspecified COPD Osteoporosis M80.00XA Osteoporosis type: age-related Presence of current pathological fracture: with current pathological fracture Encounter type: initial encounter Urinary tract infection, recurrent N39.0 AAA (abdominal aortic aneurysm) I71.4 Benign essential hypertension I10 DVT prophylaxis Z29.9 (1) COPD (chronic obstructive pulmonary disease) COPD type: unspecified COPD Qualified Code(s): J44.9 - Chronic obstructive pulmonary disease, unspecified (2) Osteoporosis Osteoporosis type: age-related Presence of current pathological fracture: with current pathological fracture Encounter type: initial encounter Qualified Code(s): M80.00XA - Age-related osteoporosis with current pathological fracture, unspecified site, initial encounter for fracture (3) Fall Encounter type: initial encounter Qualified Code(s): W19.XXXA - Unspecified fall, initial encounter
[2020-03-16] MEDS: METHENAMINE HIPPURATE 1 GM TAB PO SCH (21:24)
[2020-03-16] MEDS: DOCUSATE SODIUM/SENNA 50/8.6MG TAB PO SCH (21:24)
[2020-03-16] MEDS: ASPIRIN 81 MG ECTAB PO SCH (21:25)
[2020-03-16] MEDS: SIMVASTATIN 20 MG TAB PO SCH (21:28)
[2020-03-16] MEDS ORDERED: TRANEXAMIC ACID / 0.7% NACL 1,000 MG/100 ML BAG IV SCH (22:00)
[2020-03-17] MEDS: D5W AND 1/2NSS 1,000 ML IV SCH (05:59)
--- NOTE | 2020-03-17 07:30 | Orthopedic Progress Note ---
Date of Service March 17, 2020 Assessment & Plan (1) Status post hip hemiarthroplasty: Overall she is doing very well. She is not having much pain in the left hip. She will be seen by physical therapy today for ambulation and range of motion exercises. She will be on aspirin 81 mg twice a day for 6 weeks for DVT prophylaxis. The Silverlon dressing will remain in place for 7 days. She is orthopedically stable for discharge when medically ready. She will follow-up in our office in 2 weeks for staple removal. Full discharge instructions were placed in the discharge summary. I will be out of town tomorrow, if you have any questions please contact me personally on my cell phone at [phone]. Present on Admission?: Yes Subjective Rachelle was seen and examined at bedside this morning. Overall she is doing very well. She is not having any pain in her left hip. She was able to get some sleep last night. She has not been ambulating yet. She has no complaints. Physical Exam Musculoskeletal: On physical examination of her left hip, the Silverlon dressing is clean and dry. Her leg lengths are equal. She has active dorsiflexion and plantarflexion of her left ankle. Results & Data ([facility]) Vital Signs (Past 12 Hours) Vital Signs Temp Pulse Resp BP BP Pulse Ox 03/17/20 00:11 36.6 C 77 14 126/73 92 03/16/20 20:48 36.5 C 77 18 123/71 96 03/16/20 19:45 36.6 C 74 18 136/63 93 03/16/20 19:28 36.4 C L 71 18 138/75 Laboratory Results H & H 03/15/20 Range/Units 15:40 Hgb 13.3 (12.0-16.0) g/dL Hct 39.0 (37-47) % Coagulation 03/15/20 Range/Units 19:57 INR 1.0 (0.9-1.1) Diagnostic Findings Postoperative x-rays of the left hip show the prosthesis to be in anatomic alignment without any evidence of fracture, dislocation, or loosening. PG Care Time/CCT Total # of Minutes Spent Total Time Spent with Patient: Total time spent is greater than 50% in coordination of care (as documented) at patient's floor/unit and/or counseling patient: Coding Level of Care Code None Diagnoses Status post hip hemiarthroplasty Z96.649
[2020-03-17 08:39] LABS: Basophils # (auto) 0.01 K/uL (0-0.2); Basophils % (auto) 0.1 %; Eosinophils # (auto) 0.01 K/uL (0-0.5); Eosinophils % (auto) 0.1 %; Hematocrit (blood only) 38.3 % (37-47); Hemoglobin 13.2 g/dL (12.0-16.0); Immature Granulocytes # (auto) 0.02 K/uL (0.00-0.02); Immature Granulocytes % (auto) 0.2 %; Lymphocytes # (auto) 0.63 K/uL (1.2-3.4); Mean Corpuscular Hemoglobin 31.7 pg (25-34); Mean Corpuscular Hgb Conc 34.5 g/dL (32-36); Mean Corpuscular Volume 92.1 fL (80-100); Mean Platelet Volume 8.9 fL (7.4-10.4); Monocytes # (auto) 0.62 K/uL (0.11-0.59); Monocytes % (auto) 6.8 %; Neutrophils # (auto) 7.77 K/uL (1.4-6.5); Neutrophils % (auto) 85.8 %; Platelet Count 190 K/uL (130-400); RDW Coefficient of Variation 13.6 % (11.5-14.5); RDW Standard Deviation 45.5 fL (36.4-46.3); Red Blood Count 4.16 M/uL (4.2-5.4); White Blood Count 9.06 K/uL (4.8-10.8)
[2020-03-17 09:07] LABS: BUN Creatinine Ratio 16.7 (10-20); Calcium 8.7 mg/dl (8.5-10.1); Creatinine Clr Calc Pharmacy 59.2 ml/min; Est GFR (African American) 70.4; Est GFR (Non-African American) 60.8; Potassium 3.7 mmol/L (3.5-5.1)
[2020-03-17] MEDS: amLODIPine BESYLATE 5 MG TAB PO SCH (09:09)
[2020-03-17] MEDS: CHOLECALCIFEROL 1,000 UNITS 25 MCG TAB PO SCH (09:09)
[2020-03-17] MEDS: ASPIRIN 81 MG ECTAB PO SCH ×2 (09:09→21:07)
--- NOTE | 2020-03-17 16:43 | Hospitalist Progress Note ---
Date of Service March 17, 2020 Assessment & Plan (1) Fall: Fell while out getting a shingles shot. It is concerning she does not completely remember the fall, however since she has not fallen in the last year and no concerning prodromal symptoms prior to falling Urinalysis without evidence of infection Chest x-ray -no acute process in the chest Lab work otherwise unremarkable. Likely just mechanical fall (2) Left displaced femoral neck fracture: Appreciate orthopedic management now status post left cemented bipolar hip arthroplasty Doing well, with some postoperative pain Hemoglobin 13.2 on postop day 1 and hemodynamically stable -Continue acetaminophen -Discontinue morphine as this caused confusion -Add tramadol 50 mg p.o. every 4 hours as needed pain -Wound dressing will stay on for 7 days and then will come off, follow-up with Ortho in the office in 2 weeks for staple removal -Aspirin 81 mg p.o. twice daily x4 weeks for DVT prophylaxis -Follow-up with orthopedics in 2 weeks -Bowel regimen-add on Metamucil, continue senna/docusate PT/OT recommending rehab-[facility] for placement soon as bed available (3) COPD (chronic obstructive pulmonary disease): Albuterol PRN No acute exacerbation (4) Osteoporosis: T score -2.5. Continue plan follow-up with rheumatology given Fosamax use since 2016. Vitamin D level pending -Continue vitamin D3 supplementation 5000 units p.o. daily for now. (5) Urinary tract infection, recurrent: No current infection. Has a pessary in place Continue on her usual methenamine 1 g p.o. every afternoon (6) AAA (abdominal aortic aneurysm): Stable as per prior vascular note. Follows every 6 months (7) Benign essential hypertension: Blood pressures are controlled -Continue amlodipine 10 mg p.o. daily (8) DVT prophylaxis: Aspirin 81 mg p.o. twice daily Continue SCDs on nonoperative leg Disposition-continued stay, medically stable for discharge, awaiting placement Admission and Anticipated Discharge Date Admission Date: March 15, 2020 Subjective Doing very well today. Reports she was having confusion that she remembers from yesterday after being on morphine. She recalls seeing Dr. Jean and other nurses holding onto lights above them and she thought they were swinging around her. I informed her that she was in the operating room and he probably really were holding onto lights and moving them around her. Today she is doing excellent. She is having pain in the left hip down the left thigh, but not out of the ordinary. Denies any chest pains or shortness of breath, no nausea or vomiting. Does have chronic issues with constipation and has to take Metamucil every day. Review of Systems Review of Systems: All systems reviewed & are unremarkable except as noted in HPI & below Physical Exam Constitutional: WD/WN, vitals as above Eyes: + anicteric sclerae Neck: trachea midline, no thyromegaly Respiratory: normal respiratory effort, lungs clear to auscultation Cardiovascular: RRR, no murmur, no edema Chest (Breasts): Chest: normal inspection of chest Gastrointestinal (Abdomen): normal bowel sounds, soft, nontender, no hepatosplenomegaly Musculoskeletal: Extremities: + extremities abnormal to inspection (Left hip with dressing in place with mild edema in the left thigh), no cyanosis and no clubbing Skin: no rashes, warm and dry Neurologic: moves all extremities and awake; no focal motor deficits Psychiatric: A+Ox3, euthymic affect Lymphatic: no lymphedema Results & Data Results & Data ([facility]) Vital Signs (Past 12 Hours) Vital Signs Temp Pulse Resp BP BP Pulse Ox 03/17/20 15:09 36.7 C 62 16 134/76 95 03/17/20 11:41 36.3 C L 59 L 18 120/72 94 03/17/20 07:30 36.9 C 57 L 16 135/75 95 Laboratory Results 03/17/20 03/17/20 03/17/20 Range/Units 08:23 08:23 08:23 WBC 9.06 (4.8-10.8) K/uL RBC 4.16 L (4.2-5.4) M/uL Hgb 13.2 (12.0-16.0) g/dL Hct 38.3 (37-47) % MCV 92.1 (80-100) fL MCH 31.7 (25-34) pg MCHC 34.5 (32-36) g/dL RDW Std Deviation 45.5 (36.4-46.3) fL RDW Coeff of Spenser 13.6 (11.5-14.5) % Plt Count 190 (130-400) K/uL MPV 8.9 (7.4-10.4) fL Immature Gran % (Auto) 0.2 % Neut % (Auto) 85.8 % Lymph % (Auto) 7.0 % [place] % (Auto) 6.8 % Eos % (Auto) 0.1 % Baso % (Auto) 0.1 % Neut # (Auto) 7.77 H (1.4-6.5) K/uL Lymph # (Auto) 0.63 L (1.2-3.4) K/uL [place] # (Auto) 0.62 H (0.11-0.59) K/uL Eos # (Auto) 0.01 (0-0.5) K/uL Baso # (Auto) 0.01 (0-0.2) K/uL Immature Gran # (Auto) 0.02 (0.00-0.02) K/uL Sodium 138 (136-145) mmol/L Potassium 3.7 (3.5-5.1) mmol/L Chloride 106 (98-107) mmol/L Carbon Dioxide 28 (21-32) mmol/L Anion Gap 5.0 (3-11) BUN 15 (7-18) mg/dl Creatinine 0.88 (0.6-1.2) mg/dl Est Cr Clr Drug Dosing 59.2 ml/min Est GFR ( Amer) 70.4 Est GFR (Non-Af Amer) 60.8 BUN/Creatinine Ratio 16.7 (10-20) Glucose 129 H (70-99) mg/dl Calcium 8.7 (8.5-10.1) mg/dl 25-OH Vitamin D Total 41.5 (30-100) ng/ml PG Care Time/CCT Total # of Minutes Spent Total Time Spent with Patient: Total time spent is greater than 50% in coordination of care (as documented) at patient's floor/unit and/or counseling patient: Coding Level of Care Code 92195 Subseq Hosp Care Lvl 2 Diagnoses Fall W19.XXXA Encounter type: initial encounter Left displaced femoral neck fracture S72.002A COPD (chronic obstructive pulmonary disease) J44.9 COPD type: unspecified COPD Osteoporosis M80.00XA Osteoporosis type: age-related Presence of current pathological fracture: with current pathological fracture Encounter type: initial encounter Urinary tract infection, recurrent N39.0 AAA (abdominal aortic aneurysm) I71.4 Benign essential hypertension I10 DVT prophylaxis Z29.9 (1) Fall Encounter type: initial encounter Qualified Code(s): W19.XXXA - Unspecified fall, initial encounter (2) COPD (chronic obstructive pulmonary disease) COPD type: unspecified COPD Qualified Code(s): J44.9 - Chronic obstructive pulmonary disease, unspecified (3) Osteoporosis Osteoporosis type: age-related Presence of current pathological fracture: with current pathological fracture Encounter type: initial encounter Qualified Code(s): M80.00XA - Age-related osteoporosis with current pathological fracture, unspecified site, initial encounter for fracture
[2020-03-17] MEDS: PSYLLIUM 58.6% POWDER PACKET PO SCH (18:32)
[2020-03-17] MEDS: traMADol HCL 50 MG TABLET PO PRN ×2 (19:31→23:20)
[2020-03-17] MEDS: SIMVASTATIN 20 MG TAB PO SCH (21:07)
[2020-03-17] MEDS: METHENAMINE HIPPURATE 1 GM TAB PO SCH (21:07)
[2020-03-17] MEDS: DOCUSATE SODIUM/SENNA 50/8.6MG TAB PO SCH (21:08)
[2020-03-18 06:27] LABS: Basophils # (auto) 0.02 K/uL (0-0.2); Basophils % (auto) 0.3 %; Eosinophils # (auto) 0.27 K/uL (0-0.5); Hematocrit (blood only) 35.9 % (37-47); Hemoglobin 12.5 g/dL (12.0-16.0); Immature Granulocytes # (auto) 0.01 K/uL (0.00-0.02); Immature Granulocytes % (auto) 0.1 %; Lymphocytes # (auto) 1.24 K/uL (1.2-3.4); Lymphocytes % (auto) 18.4 %; Mean Corpuscular Hemoglobin 31.9 pg (25-34); Mean Corpuscular Hgb Conc 34.8 g/dL (32-36); Mean Corpuscular Volume 91.6 fL (80-100); Mean Platelet Volume 9.4 fL (7.4-10.4); Monocytes # (auto) 0.93 K/uL (0.11-0.59); Monocytes % (auto) 13.8 %; Neutrophils # (auto) 4.26 K/uL (1.4-6.5); Neutrophils % (auto) 63.4 %; Platelet Count 162 K/uL (130-400); RDW Coefficient of Variation 13.7 % (11.5-14.5); RDW Standard Deviation 44.9 fL (36.4-46.3); Red Blood Count 3.92 M/uL (4.2-5.4); White Blood Count 6.73 K/uL (4.8-10.8)
[2020-03-18 06:57] LABS: BUN Creatinine Ratio 22.5 (10-20); Calcium 8.2 mg/dl (8.5-10.1); Creatinine Clr Calc Pharmacy 70.4 ml/min; Est GFR (African American) 86.8; Est GFR (Non-African American) 74.9; Potassium 3.8 mmol/L (3.5-5.1)
[2020-03-18] MEDS: PSYLLIUM 58.6% POWDER PACKET PO SCH (08:12)
[2020-03-18] MEDS: CHOLECALCIFEROL 1,000 UNITS 25 MCG TAB PO SCH (08:12)
[2020-03-18] MEDS: ASPIRIN 81 MG ECTAB PO SCH ×2 (08:13→21:18)
[2020-03-18] MEDS: amLODIPine BESYLATE 5 MG TAB PO SCH (08:13)
[2020-03-18] MEDS: traMADol HCL 50 MG TABLET PO PRN ×2 (13:06→21:18)
--- NOTE | 2020-03-18 14:17 | Anesthesiology Progress Note ---
Date of Service March 18, 2020 Anesthesia Post Procedure Vital Signs Vital Signs: Temp Pulse Resp BP BP Pulse Ox 03/18/20 07:34 36.4 C L 54 L 16 129/70 93 03/17/20 23:54 36.5 C 60 14 131/75 92 03/17/20 19:30 36.9 C 62 17 125/74 95 03/17/20 15:09 36.7 C 62 16 134/76 95 Pain Intensity Left Hip: Pain Intensity: 4 Notes Mental Status: alert / awake / arousable and participated in evaluation Nausea / Vomiting: adequately controlled Pain: adequately controlled Airway Patency, RR, SpO2: stable & adequate BP & HR: stable & adequate Hydration State: stable & adequate Neuraxial Anesthesia: was administered and sensory block resolved Anesthetic Complications: no major complications apparent and Pt Satisfied with anesthetic care
--- NOTE | 2020-03-18 14:36 | Hospitalist Progress Note ---
Date of Service March 18, 2020 Assessment & Plan (1) Fall: Fell while out getting a shingles shot. It is concerning she does not completely remember the fall, however since she has not fallen in the last year and no concerning prodromal symptoms prior to falling Urinalysis without evidence of infection Chest x-ray -no acute process in the chest Lab work otherwise unremarkable. Likely just mechanical fall (2) Left displaced femoral neck fracture: Appreciate orthopedic management now status post left cemented bipolar hip arthroplasty Doing well, with some postoperative pain Hemoglobin 13.2 on postop day 1, and slightly down to 12.5 on postop day 2- remains hemodynamically stable -Continue acetaminophen as needed pain -Discontinued morphine as this caused confusion -Continue tramadol 50 mg p.o. every 4 hours as needed for pain -Wound dressing will stay on for 7 days and then will come off, follow-up with Ortho in the office in 2 weeks for staple removal -Aspirin 81 mg p.o. twice daily x 6 weeks for DVT prophylaxis -Follow-up with orthopedics in 2 weeks -Bowel regimen-add on Metamucil, continue senna/docusate PT/OT recommending [facility]hab[facility] for placement soon as bed available (3) COPD (chronic obstructive pulmonary disease): Albuterol PRN No acute exacerbation (4) Osteoporosis: T score -2.5. Continue plan follow-up with rheumatology given Fosamax use since 2016. Vitamin D level normal here at 41 -Continue vitamin D3 supplementation 5000 units p.o. daily for now. (5) Urinary tract infection, recurrent: No current infection. Has a pessary in place Continue on her usual methenamine 1 g p.o. every afternoon (6) AAA (abdominal aortic aneurysm): Stable as per prior vascular note in 08/2019 at 4.7 cm. Scheduled follow- up in the summer 2020 (7) Benign essential hypertension: Blood pressures are controlled -Continue amlodipine 10 mg p.o. daily (8) DVT prophylaxis: Aspirin 81 mg p.o. twice daily x6 weeks from the time of surgery Continue SCDs on nonoperative leg Disposition-continued stay, medically stable for discharge, awaiting placement- Case management informs me that this won't be until least Thursday to [facility]-insurance authorization being prepared Admission and Anticipated Discharge Date Admission Date: March 15, 2020 Anticipated date of discharge: 03/19/20 Subjective Feeling very well. Having some pain in the left thigh but otherwise pain is controlled. Denies chest pain or shortness of breath, denies lightheadedness. She is eating and drinking. No bowel movement today. Review of Systems Review of Systems: All systems reviewed & are unremarkable except as noted in HPI & below Physical Exam Constitutional: WD/WN, vitals as above Eyes: + anicteric sclerae Neck: trachea midline, no thyromegaly Respiratory: normal respiratory effort, lungs clear to auscultation Cardiovascular: RRR, no murmur, no edema Chest (Breasts): Chest: normal inspection of chest Gastrointestinal (Abdomen): normal bowel sounds, soft, nontender, no hepatosplenomegaly Musculoskeletal: Extremities: + extremities abnormal to inspection (Left hip with dressing in place with mild edema in the left thigh), no cyanosis and no clubbing Skin: no rashes, warm and dry Neurologic: moves all extremities and awake; no focal motor deficits Psychiatric: A+Ox3, euthymic affect Lymphatic: no lymphedema Results & Data Results & Data ([facility]) Vital Signs (Past 12 Hours) Vital Signs Temp Pulse Resp BP Pulse Ox 03/18/20 07:34 36.4 C L 54 L 16 129/70 93 Laboratory Results 03/18/20 03/18/20 Range/Units 05:58 05:58 WBC 6.73 (4.8-10.8) K/uL RBC 3.92 L (4.2-5.4) M/uL Hgb 12.5 (12.0-16.0) g/dL Hct 35.9 L (37-47) % MCV 91.6 (80-100) fL MCH 31.9 (25-34) pg MCHC 34.8 (32-36) g/dL RDW Std Deviation 44.9 (36.4-46.3) fL RDW Coeff of Spenser 13.7 (11.5-14.5) % Plt Count 162 (130-400) K/uL MPV 9.4 (7.4-10.4) fL Immature Gran % (Auto) 0.1 % Neut % (Auto) 63.4 % Lymph % (Auto) 18.4 % [place] % (Auto) 13.8 % Eos % (Auto) 4.0 % Baso % (Auto) 0.3 % Neut # (Auto) 4.26 (1.4-6.5) K/uL Lymph # (Auto) 1.24 (1.2-3.4) K/uL [place] # (Auto) 0.93 H (0.11-0.59) K/uL Eos # (Auto) 0.27 (0-0.5) K/uL Baso # (Auto) 0.02 (0-0.2) K/uL Immature Gran # (Auto) 0.01 (0.00-0.02) K/uL Sodium 143 (136-145) mmol/L Potassium 3.8 (3.5-5.1) mmol/L Chloride 109 H (98-107) mmol/L Carbon Dioxide 29 (21-32) mmol/L Anion Gap 5.0 (3-11) BUN 17 (7-18) mg/dl Creatinine 0.74 (0.6-1.2) mg/dl Est Cr Clr Drug Dosing 70.4 ml/min Est GFR ( Amer) 86.8 Est GFR (Non-Af Amer) 74.9 BUN/Creatinine Ratio 22.5 H (10-20) Glucose 105 H (70-99) mg/dl Calcium 8.2 L (8.5-10.1) mg/dl PG Care Time/CCT Total # of Minutes Spent Total Time Spent with Patient: Total time spent is greater than 50% in coordination of care (as documented) at patient's floor/unit and/or counseling patient: Coding Level of Care Code 32883 Subseq Hosp Care Lvl 2 Diagnoses Fall W19.XXXA Encounter type: initial encounter Left displaced femoral neck fracture S72.002A COPD (chronic obstructive pulmonary disease) J44.9 COPD type: unspecified COPD Osteoporosis M80.00XA Osteoporosis type: age-related Presence of current pathological fracture: with current pathological fracture Encounter type: initial encounter Urinary tract infection, recurrent N39.0 AAA (abdominal aortic aneurysm) I71.4 Benign essential hypertension I10 DVT prophylaxis Z29.9 (1) Fall Encounter type: initial encounter Qualified Code(s): W19.XXXA - Unspecified fall, initial encounter (2) COPD (chronic obstructive pulmonary disease) COPD type: unspecified COPD Qualified Code(s): J44.9 - Chronic obstructive pulmonary disease, unspecified (3) Osteoporosis Osteoporosis type: age-related Presence of current pathological fracture: with current pathological fracture Encounter type: initial encounter Qualified Code(s): M80.00XA - Age-related osteoporosis with current pathological fracture, unspecified site, initial encounter for fracture
[2020-03-18] MEDS: DOCUSATE SODIUM/SENNA 50/8.6MG TAB PO SCH (21:18)
[2020-03-18] MEDS: METHENAMINE HIPPURATE 1 GM TAB PO SCH (21:18)
[2020-03-18] MEDS: SIMVASTATIN 20 MG TAB PO SCH (21:18)
[2020-03-19 06:32] LABS: Basophils # (auto) 0.03 K/uL (0-0.2); Basophils % (auto) 0.5 %; Eosinophils # (auto) 0.31 K/uL (0-0.5); Eosinophils % (auto) 4.9 %; Hematocrit (blood only) 37.8 % (37-47); Hemoglobin 12.6 g/dL (12.0-16.0); Immature Granulocytes # (auto) 0.02 K/uL (0.00-0.02); Immature Granulocytes % (auto) 0.3 %; Lymphocytes # (auto) 1.13 K/uL (1.2-3.4); Mean Corpuscular Hemoglobin 30.8 pg (25-34); Mean Corpuscular Hgb Conc 33.3 g/dL (32-36); Mean Corpuscular Volume 92.4 fL (80-100); Mean Platelet Volume 9.5 fL (7.4-10.4); Monocytes # (auto) 0.88 K/uL (0.11-0.59); Neutrophils % (auto) 62.3 %; Platelet Count 185 K/uL (130-400); RDW Coefficient of Variation 13.7 % (11.5-14.5); RDW Standard Deviation 46.4 fL (36.4-46.3); Red Blood Count 4.09 M/uL (4.2-5.4); White Blood Count 6.27 K/uL (4.8-10.8)
[2020-03-19 07:02] LABS: Calcium 8.5 mg/dl (8.5-10.1); Creatinine Clr Calc Pharmacy 68.6 ml/min; Est GFR (African American) 84.1; Est GFR (Non-African American) 72.5
[2020-03-19] MEDS: ASPIRIN 81 MG ECTAB PO SCH ×2 (08:40→20:24)
[2020-03-19] MEDS: CHOLECALCIFEROL 1,000 UNITS 25 MCG TAB PO SCH (08:40)
[2020-03-19] MEDS: amLODIPine BESYLATE 5 MG TAB PO SCH (08:41)
[2020-03-19] MEDS: PSYLLIUM 58.6% POWDER PACKET PO SCH ×2 (08:42→08:44)
--- NOTE | 2020-03-19 09:07 | Orthopedic Progress Note ---
Date of Service March 19, 2020 Assessment & Plan (1) Status post hip hemiarthroplasty: Overall she is doing very well. She will be seen by physical therapy for ambulation and range of motion exercises. She is on aspirin 81 mg twice a day for 6 weeks for DVT prophylaxis. She can follow-up with orthopedics in 2 weeks for staple removal. The Silverlon dressing will stay in place for 7 days from the day of surgery. Full discharge instructions were placed in the discharge summary. She is orthopedically stable for discharge when medically ready. Present on Admission?: Yes Subjective Rachelle was seen and examined at bedside this morning. Overall she is doing very well. She has been ambulating well with physical therapy. She complains of some pain in her mid thigh. Otherwise she has no complaints. Physical Exam Musculoskeletal: On physical examination of her left hip, the Silverlon dressing is clean and dry. Her leg lengths are equal. She is neurovascularly intact. Results & Data ([facility]) Vital Signs (Past 12 Hours) Vital Signs Temp Pulse Resp BP Pulse Ox 03/19/20 08:39 65 148/72 H 03/19/20 06:53 36.9 C 62 18 127/76 92 03/19/20 00:16 36.6 C 69 14 129/69 93 PG Care Time/CCT Total # of Minutes Spent Total Time Spent with Patient: Total time spent is greater than 50% in coordination of care (as documented) at patient's floor/unit and/or counseling patient: Coding Level of Care Code None Diagnoses Status post hip hemiarthroplasty Z96.649
--- NOTE | 2020-03-19 11:49 | Hospitalist Progress Note ---
Date of Service March 19, 2020 Assessment & Plan (1) Status post hip hemiarthroplasty: Rachelle is an 84yo F with a PMHx of COPD, COPD, eHTN, stable AAA, HLD, and osteoporosis who presents with a fall and L hip fracture. Fall - Fell while out getting a shingles shot. It is concerning she does not completely remember the fall, however since she has not fallen in the last year and no concerning prodromal symptoms prior to falling -Urinalysis without evidence of infection - Chest x-ray -no acute process in the chest - Lab work otherwise unremarkable. -Likely mechanical fall Left displaced femoral neck fracture: - s/p left cemented bipolar hip arthroplasty -Doing well, no pain at rest today -Hemoglobin 13.2 on postop day 1, remains hemodynamically stable today -APAP PRN -Morphine d/velia due to induction of confusion -Continue tramadol 50 mg p.o. every 4 hours as needed for pain -Wound dressing will stay on for 7 days and then will come off, follow-up with Ortho in the office in 2 weeks for staple removal -Aspirin 81 mg p.o. twice daily x 6 weeks for DVT prophylaxis -Follow-up with orthopedics in 2 weeks -Bowel regimen-add on Metamucil, continue senna/docusate - [facility] placement to [facility] COPD (chronic obstructive pulmonary disease): - Albuterol PRN - No acute exacerbation Osteoporosis: - T score -2.5. Continue plan follow-up with rheumatology given Fosamax use since 2016. - Vitamin D level normal here at 41 -Continue vitamin D3 supplementation 5000 units p.o. daily for now. - Consider evaluation addition of switch to osteoclast stimulator/Forteo. Recommend PCP vs Rheum followup Urinary tract infection, recurrent: - No current infection. Has a pessary in place - Continue TOBACCO CONDITIONER methenamine 1 g p.o. every afternoon AAA (abdominal aortic aneurysm): - Stable as per prior vascular note in 08/2019 at 4.7 cm. Scheduled follow-up in the summer 2020 Benign essential hypertension: _ BP adequately controlled today -Continue amlodipine 10 mg p.o. daily DVT prophylaxis: - Aspirin 81 mg p.o. twice daily x6 weeks from the time of surgery - Continue SCDs on nonoperative leg Dispo: Pending bed @ case management DVT Prophyl: Asa 81mg per ortho FEN/GI: Tolerating diet well (2) DVT prophylaxis: (3) Fall: (4) COPD (chronic obstructive pulmonary disease): (5) Wheezing: (6) Bronchitis: (7) Chronic obstructive pulmonary disease: (8) Hearing loss: (9) Urge and stress incontinence: Admission and Anticipated Discharge Date Admission Date: March 15, 2020 Anticipated date of discharge: 03/19/20 Supervising Physician Co-Signing Physician Notes I personally examined the patient and verified all sanon points of history and exam, discussed case, and agree with decision making with Dr Jovel. doing ok just waiting on SNF/rehab approval. answered all questions to the best of my ability. vitals noted nad heent nc at mmm breathing unlabored no accessory muscles good effort presumed osteoporotic hip fracture -post op, stable for rehab pending approval -outpt [facility] w/u and Rx otherwise as above Subjective Seen at bedside today. Feels well, no pain at rest. No shortness of breath, no chest pain, no lightheadedness or dizziness. She reports she has some pain when she gets up, but otherwise feels she is doing well and is looking forward to working with physical therapy. No acute questions or concerns. Review of Systems Review of Systems: Constitutional: Denies fever, chills Eyes: Denies acute vision change ENT: Denies congestion, sore throat Cardiovascular: Denies Chest pain, chest pressure, palpitations Respiratory: Denies shortness of breath, cough, sputum production, difficulty breathing Gastrointestinal: Denies abdominal pain, nausea, vomiting, constipation, diarrhea Genitourinary: Denies pain with urination Musculoskeletal: Denies focal weakness, acute muscle aches/pain, joint aches/pain Integumentary:Denies rash, lesions, bruising Neurological: Denies headache, numbness, tingling, focal weakness Physical Exam Physical Exam: General: A&Ox3. NAD. Cooperative. HEENT: Atraumatic, normocephalic. Pulm: Moderate air movement, CTAB A&P. -wheezes, -rales, -rhonchi. Symmetrical chest rise. No increase work of breathing. No respiratory distress. Cardiac: RRR, -mrg. Radial pulses intact and symmetrical. Abdominal: Nontender, nondistended, soft. BS present. Extremity: L hip with well healing surgical incision. Extremities intact. Sensation to soft touch intact bilaterally in feet and fingers. Ankle plantarflexion/dorsiflexion and bankruptcy legal assistant strength intact without asymmetry. Results & Data Results & Data ([facility]) Vital Signs (Past 12 Hours) Vital Signs Temp Pulse Resp BP Pulse Ox 03/19/20 08:39 65 148/72 H 03/19/20 06:53 36.9 C 62 18 127/76 92 03/19/20 00:16 36.6 C 69 14 129/69 93 Resident Activity Tracking Resident Involvement: Resident Care Provided Care Provided: Adult Hospital Medicine (1) COPD (chronic obstructive pulmonary disease) COPD type: unspecified COPD Qualified Code(s): J44.9 - Chronic obstructive pulmonary disease, unspecified (2) Fall Encounter type: initial encounter Qualified Code(s): W19.XXXA - Unspecified fall, initial encounter
--- NOTE | 2020-03-19 19:50 | Billing Data ---
Date of Service March 19, 2020 Coding Level of Care Code 07065 Subseq Hosp Care Lvl 2
[2020-03-19] MEDS: METHENAMINE HIPPURATE 1 GM TAB PO SCH (20:24)
[2020-03-19] MEDS: DOCUSATE SODIUM/SENNA 50/8.6MG TAB PO SCH (20:24)
[2020-03-19] MEDS: SIMVASTATIN 20 MG TAB PO SCH (20:24)
[2020-03-20] MEDS: traMADol HCL 50 MG TABLET PO PRN (04:20)
[2020-03-20] MEDS: ASPIRIN 81 MG ECTAB PO SCH (08:50)
[2020-03-20] MEDS: CHOLECALCIFEROL 1,000 UNITS 25 MCG TAB PO SCH (08:51)
[2020-03-20] MEDS: amLODIPine BESYLATE 5 MG TAB PO SCH (08:51)
[2020-03-20] MEDS: PSYLLIUM 58.6% POWDER PACKET PO SCH (08:52)
--- NOTE | 2020-03-20 09:48 | Discharge Summary ---
Date of Service March 20, 2020 Admission HPI Per Admitting Provider This is a pleasant 84 yo female who reports going to a store to get a shingles shot. She reports as she was walking out of the store, she fell. She is not sure what provoked the fall, but denies any lightheadedness or dizziness She reorts that her right leg was in severe pain and could not move it. She states her leg was underneath her and 4 women who were near by tried to pick her up, however she was not able to stand. 911 was called, and patient was brought to the hospital. Denies any head injury, no loss of consciousness, no neck pain. Admission Exam Per Admitting Provider Constitutional: WD/WN, vitals as above well developed Eyes: PERRL, conjunctivae normal, anicteric sclerae ENMT: external ear and nose normal, oropharynx normal Neck: trachea midline, no thyromegaly Respiratory: normal respiratory effort, lungs clear to auscultation Cardiovascular: RRR, no murmur, no edema Gastrointestinal (Abdomen): normal bowel sounds, soft, nontender, no hepatosplenomegaly Musculoskeletal: right leg externally rotated, normal sensations, unable to assess strength in that extremity due to pain. all other extremitties have 5/5 muscle strength. Skin: no rashes, warm and dry Neurologic: PERRL, EOMI, accommodation nl, no face palsy, no dysarthria Psychiatric: A+Ox3, euthymic affect Lymphatic: no cervical or axillary lymphadenopathy Principal Diagnosis Hip Fracture Discharge Exam General: A&Ox3. NAD. Cooperative. HEENT: Atraumatic, normocephalic. PERLAA. Pulm: Moderate air movement, CTAB A&P. -wheezes, -rales, -rhonchi. Symmetrical chest rise. No increase work of breathing. No respiratory distress. Cardiac: RRR, -mrg. Radial pulses intact and symmetrical. Abdominal: Nontender, nondistended, soft. BS present. Extremity: L hip with well healing surgical incision. Extremities intact. Sensation to soft touch intact bilaterally in feet and fingers. Ankle plantarflexion/dorsiflexion and staff counsel strength intact without asymmetry. Discharge Data Allergies Allergy/AdvReac Type Severity Reaction Status Date / Time Sulfa (Sulfonamide Allergy Unknown SEVERE Verified 03/15/20 16:50 Antibiotics) VOMITING Consultations 03/15/20 17:07 Consult Case Management - Discharge Planning Routine Consult Orthopedic Surgery Routine Procedures Performed Operation Date: 03/16/20 11:40 Actual Procedures p Left Anterior Bipolar Hip(Left) - Gen Jean DO Ordered Studies 03/16/20 14:30 FL fluoroscopy <1hr Routine FL hip LT 1V Routine Hospital Course (1) Status post hip hemiarthroplasty: Rachelle is an 84yo F with a PMHx of COPD, COPD, eHTN, stable AAA, HLD, and osteoporosis who presented with a fall and L hip fracture. L displaced femoral neck fxr s/p ORIF / mechanical fall Rachelle is an 84-year-old female who sustained a mechanical fall while getting her shingles shot as outpatient. On admission her UA did not show any signs of infection and she did not feel she was having any acute weakness prior. Chest x-ray showed no acute process in the chest. On admission imaging showed a left displaced femoral neck fracture. Orthopedics was consulted, and she underwent surgical repair with a cemented bipolar left hip arthroplasty. She tolerated surgical intervention well. Morphine was discontinued due to induction of confusion and she was continued on tramadol as needed for pain control. She was seen by physical therapy, with good improvement in her pain postsurgically. Wound dressing will stay on for 7 days and then will come off, follow-up with Ortho in the office in 2 weeks for staple removal. Aspirin 81 mg p.o. twice daily x 6 weeks for DVT prophylaxis. She was discharged to [facility] for further rehab and care. COPD (chronic obstructive pulmonary disease): Rachelle has a history of COPD managed with albuterol. She had no wheezing or desaturation during admission. She did not experience a COPD exacerbation and was continued on PRN albuterol during admission. Osteoporosis: Rachelle has a history of Osteoporosis with T score -2.5 on Fosamax since 2016. She was continued on Vitamin D and calcium during admission. Her vitamin D levels were normal. It was recommended that since she sustained a fragility fracture as above she be considered as failing bisphosphonate and be evaluated for switch to an osteoclast stimulator/Forteo as outpatient. She will followup with her PCP regarding this potential change. Urinary tract infection, recurrent: Pt had a history of UTIs on chronic methenamine. She did not show signs of a UTI during admission. Her pessary was kept in place and she was continued on her home dose of methenamine. AAA (abdominal aortic aneurysm): Stable as per prior vascular note in 08/2019 at 4.7 cm. Scheduled follow-up in the summer 2020 Benign essential hypertension: BP adequately controlled during admission. She was continued on her home dose of amlodipine 10 mg p.o. daily. DVT prophylaxis: Aspirin 81 mg p.o. twice daily x6 weeks from the time of surgery per ortho team. She was continued on SCDs on nonoperative leg during admission with no signs of DVT. (2) DVT prophylaxis: (3) Fall: (4) COPD (chronic obstructive pulmonary disease): (5) Wheezing: (6) Bronchitis: (7) Hearing loss: (8) Urge and stress incontinence: Total Time Total Time Spent Total Time Spent (In Minutes): <30 Discharge Plan Discharge Items Patient Disposition: Transfer [facility] Fac Reason For Visit: HIP FRACTURE Discharge Diagnosis: L Hip Fracture Activity: Per Instructions section Non-emergency contact: Primary Care Provider and Surgeon Call non-emergency contact if: you have any medication questions, your symptoms worsen, your pain is not controlled, your pain is worsening, your pain is unusual for you, your pain is concerning for you and you have a fever Follow-up/Referrals: Pavithra Segovia MD [Primary Care Provider] - Diet: Regular Addtl Attending Provider Instructions: ORTHOPEDIC INSTRUCTIONS Hip Hemiarthroplasty Activity and Therapy Recommendations: 1. You were shown a series of exercises in the hospital. Do these exercises three times each day if you are able. 2. Get up and walk several times each day if you are capable. Make sure you have assistance is needed. For the first four weeks, try not to stand or walk for more than one hour at a time. If you do stand or walk for more than one hour, you will not hurt anything, but your leg will likely swell. 3. As you feel comfortable, you may change from the walker or crutches to a cane and then to independent walking if you are able. Please be safe. Medications: 1. Narcotic You have been discharged with a short course of Tramadol, a narcotic medication, for pain. You may take tramadol 50mg up to every 4 hours as needed for pain. 2. Aspirin You will be required to take Aspirin 81mg twice a day for 6 weeks after surgery to prevent blood clots. 3. Other medications may be given for specific circumstances. If you have any questions, please call the office at [phone]. 4. Resume previous home medications unless otherwise instructed TEDs/Elastic Stockings: The white elastic stockings help limit swelling and prevent blood clots from forming in your legs. The more you wear them, the more they work. Wear them for six weeks. Dressing Care: Leave the Silverlon dressing in place for 7 days. After 7 days you may remove the dressing. Then, you may leave the abner open to air or cover them with a dry dressing so they do not rub on your pants. The abner will be removed at your 2 week follow-up appointment. Showering: You may shower with the Silverlon dressing in place. Let the shower spray hit your opposite side and slowly pat the plastic dry. Do not soak the dressing. After the dressing is removed you may shower normally with the abner exposed. Let soapy water run over the abner and pat them dry. Things To Watch For: 1. Drainage from the incision site that occurs more than one week after your surgery. 2. Increased redness at the incision site. 3. Fever above 102 degrees Fahrenheit. 4. Unusual chest pain or shortness of breath. 5. Call [facility] at with any of the above problems Follow-Up Visit: Follow-up with Dr. Jean's PA (Gen Fay) 2-3 weeks after your day of surgery. He will remove your abner and answer any questions. If you have any additional questions or concerns, Dr Jean is usually in the office at the same time and will be available An appointment was probably scheduled when you signed-up for surgery in the office. If you have any questions call A followup appointment will be scheduled with your primary care provider by the rehab facility. You should bee seen within 1 week. Pending Studies at Discharge: No Stand-Alone Forms: My [facility] [employer], Opioid Pain Management Skilled Items Patient informed of condition?: Yes DNR: No Discharge Level of Care: Skilled Communicable Disease: No Discharge Prognosis: Stable Lines: None Urinary Catheter: No Medications and DC Order Prescriptions: New aspirin 81 mg Tablet,Delayed Release (Dr/Ec) 81 mg PO BID 42 Days Qty: 84 RF: 0 tramadol 50 mg Tablet 50 mg PO Q4H PRN (Reason: pain) 10 Days Qty: 20 RF: 0 tramadol 50 mg tablet 50 mg PO Q4 PRN (Reason: pain) Qty: 7 RF: 0 Continued methenamine hippurate 1 gram tablet 1 gm PO QPM Qty: 30 RF: 5 amlodipine 10 mg tablet 10 mg PO QAM Qty: 90 RF: 1 simvastatin 20 mg tablet 20 mg PO HS Qty: 90 RF: 3 coenzyme Q10 100 mg tablet 150 mg PO DAILY RF: 0 cholecalciferol (vitamin D3) [Vitamin D3] 5,000 unit Tablet 5,000 unit PO DAILY RF: 0 multivitamin Tablet 1 tab PO QAM RF: 0 albuterol sulfate [ProAir HFA] 90 mcg/actuation HFA aerosol inhaler 2 puffs INH QID PRN (Reason: Shortness Of Breath) RF: 0 Discharge Orders: Discharge Order (Routine); Ordered 03/20/20 Ordered By: Marshall Boateng/Other Patient Handouts: DVT Post Op Prevention Admission Data Admit Date/Time: 03/15/20 17:05 Attending Provider: Jake Lilly Admit Provider: Dionisio Haywood Primary Care Provider: Pavithra Segovia Other Providers: Sp Winters [place] ; Greg Donald ; Beatriz Rowland Other Interventions: Discharge Summary Assessment (RN) Last Done: 03/20/20 10:32 DC Date/Time DO NOT enter until pt leaves facility: 03/20/20 14:50 Supervising Physician Co-Signing Physician Notes I personally examined the patient and verified all sanon points of history and exam, discussed case, and agree with decision making with Dr Jovel. feeling ok approved for SNF. vitals noted nad heent nc at mmm breathing unlabored no accessory muscles good effort presumed osteoporotic hip fracture -post op, stable for rehab at SNF setting -outpt bone health w/u and Rx after dc from snf otherwise as above, stable for transfer Resident Activity Tracking Resident Involvement: Resident Care Provided Care Provided: Adult Hospital Medicine
--- NOTE | 2020-03-20 20:08 | Billing Data ---
Date of Service March 20, 2020 Coding Level of Care Code D/C Day Management <30 mins
== END 2020-03-20 14:50 | DRG 470 ==
LOC: ED 15:26 → SUATTDRO 17:05 → 3W 17:05 → INTOOBSV 17:05 → 3W 17:36

== ENCOUNTER 2021-04-15 06:19 | Observation (INO) ==
--- NOTE | 2021-03-21 09:39 | PAT Medication Instructions ---
Medication Instructions Date of Service March 21, 2021 Home Medications Medication Instructions Recorded amlodipine 10 mg tablet 10 mg PO QAM #90 tab 12/06/20 simvastatin 20 mg tablet 20 mg PO HS #90 tab 01/29/21 albuterol sulfate 90 mcg/actuation aerosol inhaler (ProAir HFA) 2 puffs INH QID PRN multivitamin 1 tab PO QAM cholecalciferol (vitamin D3) 125 mcg (5,000 unit) tablet (Vitamin D3) 30,000 unit PO QAM methenamine hippurate 1 gram tablet 1 g PO QPM amlodipine 10 mg tablet 10 mg PO QAM simvastatin 20 mg tablet 20 mg PO HS denosumab 60 mg/mL subcutaneous syringe (Prolia) 60 mg SUBCUT UD ASK your prescriber and surgeon denosumab 60 mg/mL subcutaneous syringe (Prolia) 60 mg SUBCUT UD DO NOT take the morning of surgery multivitamin 1 tab PO QAM cholecalciferol (vitamin D3) 125 mcg (5,000 unit) tablet (Vitamin D3) 30,000 unit PO QAM Take morning of surgery With a small sip of water, OTHERWISE NOTHING TO EAT OR DRINK AFTER MIDNIGHT: albuterol sulfate 90 mcg/actuation aerosol inhaler (ProAir HFA) 2 puffs INH QID PRN (use if needed; please bring rescue inhaler with you to hospital day of surgery if possible) amlodipine 10 mg tablet 10 mg PO QAM Take evening before surgery albuterol sulfate 90 mcg/actuation aerosol inhaler (ProAir HFA) 2 puffs INH QID PRN (if needed) methenamine hippurate 1 gram tablet 1 g PO QPM simvastatin 20 mg tablet 20 mg PO HS Other Notes If you have any questions please call us at [phone] or [phone] or [phone] or [phone]
--- NOTE | 2021-03-26 11:29 | Anesthesiology Consultation ---
Date of Service March 26, 2021 Assessment & Plan (1) Encounter for pre-operative examination: - Awaiting most recent vascular office visit note/AAA imaging. - COVID screening: Per assessment on 03/26: Travel screen negative, no known COVID-19 positive contacts or current COVID-19 related symptoms. Patient vaccinated. Surgeon arranging preop COVID testing. Awaiting results. - S/P Left anterior bipolar hip (03/16/20): SAB at L3/L4 (x2 attempts) at [facility] - Per patient, she states surgeon's office told her the plan was to at least stay overnight post-operatively. Chart Review Chart Review: Patient seen in Pre Admission Testing Teaching & Discussion Pre-Anesthesia Teaching/Discussion Notes: Instructed NPO after midnight before surgery,except medications with 15 cc of water. Medication instructions provided according to the PAT guidelines. History Surgery Operation Date: 04/12/21 10:25 Proposed Procedures p Left Total Knee Arthroplasty - Gen Jean, Height/Weight Height: 5 ft 5 in Weight: 80.9 kg Allergies Allergy/AdvReac Type Severity Reaction Status Date / Time Sulfa (Sulfonamide AdvReac Unknown Severe Verified 03/25/21 16:34 Antibiotics) vomiting Medications Home Medications Medication Instructions Recorded Confirmed Last Taken albuterol sulfate 90 mcg/actuation 2 puffs INH QID PRN 03/15/20 03/19/21 Unknown aerosol inhaler (ProAir HFA) multivitamin 1 tab PO QAM 03/15/20 03/19/21 Unknown cholecalciferol (vitamin D3) 125 30,000 unit PO QAM tab 10/09/20 03/19/21 Unknown mcg (5,000 unit) tablet (Vitamin D3) methenamine hippurate 1 gram tablet 1 g PO QPM tab 10/09/20 03/19/21 Unknown amlodipine 10 mg tablet 10 mg PO QAM #90 tab 12/06/20 03/19/21 Unknown simvastatin 20 mg tablet 20 mg PO HS #90 tab 01/29/21 03/19/21 Unknown denosumab 60 mg/mL subcutaneous 60 mg SUBCUT UD 03/19/21 03/19/21 Unknown syringe (Prolia) Past Medical History Medical History AAA (abdominal aortic aneurysm) monitors annually with Dr. Carlson Chronic back pain Chronic obstructive pulmonary disease Deafness in left ear H/O gastroesophageal reflux (GERD) Hip fracture due to osteoporosis s/p surgical intervention History of skin cancer Hyperlipidemia Hypertension Osteoarthritis Osteoporosis Presence of pessary Exercise / Class Metabolic Activity III < 4 Walking/Shop/Light housework (uses cane PRN, does [id number] steps/day without CP or SOB) Past Family History Family History Mother Colorectal cancer Hearing loss Cancer Denies family history of Ovarian cancer Prostate cancer No family history of adverse response to anesthesia No family history of bleeding disorder Heart disease Allergies Myocardial infarction Breast cancer Hypertension Asthma Past Surgical History Surgical History History of appendectomy History of bladder surgery History of cataract surgery R/L History of colonoscopy History of hysterectomy LINDSEY with BSO History of open reduction and internal fixation (ORIF) procedure Left anterior bipolar hip (03/16/20): SAB at L3/L4 (x2 attempts) at [facility] History of tonsillectomy Past Anesthesia History No Hx of Anesthesia Complications and No Family Hx of Anesthesia Complications History of PONV No Hx of PONV and No Hx of Motion Sickness Social History Smoking Status: Former smoker tobacco type: cigarettes Smoking cigarettes per day: 1 pack per week Do You Dip or Chew Tobacco: No Smoking End Date: 2009 Hx Alcohol Use: No Hx Substance Use: No substance use type: does not use Review of Systems Patient denies chest pain, shortness of breath, fever, chills, cough, wheezing, palpitations. Physical Exam Vital Signs VITALS BP 120/77 P 59 TEMP 98.5 SP02 95%RA RESP 18 PHYSICAL Full cervical extension range of motion. Full TMJ range of motion. TMD 2.5 finger breaths (small chin) Mallampati Score 2 Dentition: intact Lungs: clear throughout to auscultation Cardiac: regular rate and rhythm, no murmurs noted Spine: normal Carotid arteries: negative bruit Extremities: no edema Lab Results Anesthesia Preop Results Results Anesthesia Widget: WBC 7.00 K/uL (4.8-10.8) 03/26/21 Hgb 14.6 g/dL (12.0-16.0) 03/26/21 Hct 42.3 % (37-47) 03/26/21 Plt 262 K/uL (130-400) 03/26/21 Na 138 mmol/L (136-145) 03/26/21 K 4.0 mmol/L (3.5-5.1) 03/26/21 Cl 106 mmol/L (98-107) 03/26/21 CO2 29 mmol/L (21-32) 03/26/21 BUN 22 mg/dl (7-18) H 03/26/21 Creat 0.97 mg/dl (0.6-1.2) 03/26/21 Glucose Level 89 mg/dl (70-99) 03/26/21 PT 9.8 Seconds (9.0-12.0) 03/26/21 PTT 24.5 Seconds (21.0-31.0) 03/26/21 INR 1.0 (0.9-1.1) 03/26/21 Blood Type O Positive 03/26/21 Antibody Screen NEGATIVE 03/26/21 Testing Electrocardiogram Date: 03/26/21 Sinus bradycardia with first-degree AV block at [address] abnormality inferior leads. No significant change compared to 03/15/2020 per car diologist review. Chest X-Ray Date: 03/26/21 Findings: + NAD
[~2021-04-15 06:19] MED LIST changes: +ACETAMINOPHEN 500 MG TAB PO SCH; -AMLO-114 PO; -AZIT250T PO; -CEFD300C2 PO; -CHOL100041 PO; -COEN150C4 PO; +FAMOTIDINE 20 MG TAB PO SCH; -FSMD/70 PO; +GENERAL ORDER PROBLEM SCH; +LR 500ML BOLUS, THEN 15ML/HR IV SCH; +LR 60ML/HR IV SCH; -MULT-506 PO; +ROPIVACAINE 0.5% HCL/PF 150 MG, BUPIVACAINE 0.75% MPF 20 ML, EPINEPHrine 30MG/30ML (OR ... INSTIL SCH; -SIMV20TA2 PO; +TRANEXAMIC ACID 1,000 MG **IV Intra-op IV SCH; +TRANEXAMIC ACID 1,000 MG **IV Pre-op IV SCH; +ceFAZolin 2000MG 2,000 MG/15 ML SYR IV SCH; +dexAMETHasone 4 MG TAB PO SCH
--- NOTE | 2021-04-15 06:39 | History & Physical Bridge Note ---
Date of Service April 15, 2021 History & Physical Bridge Note I have examined the patient, reviewed the History & Physical and in the interval since the performance of the History & Physical I have noted the following changes of clinical significance: no changes noted
--- NOTE | 2021-04-15 07:10 | History & Physical Report ---
Date of Service April 15, 2021 Assessment & Plan (1) Osteoarthritis of left knee: We will proceed with a left total knee arthroplasty. Postoperatively she will be started on aspirin for DVT prophylaxis and kept overnight in the hospital for postoperative medical management. She plans to use Dine in upon discharge. History of Present Illness Chief Complaint: Osteoarthritis of the left knee. Primary Care Provider: Pavithra Segovia MD Rachelle is a pleasant 85-year-old female who is been dealing with chronic increasing left knee pain. X-rays and clinical examination have been diagnostic for advanced osteoarthritis of the left knee. After failing conservative treatment, she has elected proceed with a left total knee arthroplasty.. Allergies Allergy/AdvReac Type Severity Reaction Status Date / Time Sulfa (Sulfonamide AdvReac Severe Severe Verified 04/15/21 06:54 Antibiotics) vomiting Home Medications Medication Instructions Recorded Confirmed Type albuterol sulfate 90 mcg/actuation 2 puffs INH QID PRN 03/15/20 04/15/21 History aerosol inhaler (ProAir HFA) multivitamin 1 tab PO QAM 03/15/20 04/15/21 History cholecalciferol (vitamin D3) 125 30,000 unit PO QAM tab 10/09/20 04/15/21 History mcg (5,000 unit) tablet (Vitamin D3) methenamine hippurate 1 gram tablet 1 g PO QPM tab 10/09/20 04/15/21 History amlodipine 10 mg tablet 10 mg PO QAM #90 tab 12/06/20 04/15/21 Rx simvastatin 20 mg tablet 20 mg PO HS #90 tab 01/29/21 04/15/21 Rx denosumab 60 mg/mL subcutaneous 60 mg SUBCUT UD #1 ml 04/08/21 04/15/21 Rx syringe (Prolia) Past Med/Surg History Medical History AAA (abdominal aortic aneurysm) monitors annually with Dr. Carlson Chronic back pain Chronic obstructive pulmonary disease Deafness in left ear H/O gastroesophageal reflux (GERD) Hip fracture due to osteoporosis s/p surgical intervention History of skin cancer Hyperlipidemia Hypertension Osteoarthritis Osteoporosis Presence of pessary Surgical History History of appendectomy History of bladder surgery History of cataract surgery R/L History of colonoscopy History of hysterectomy LINDSEY with BSO History of open reduction and internal fixation (ORIF) procedure Left anterior bipolar hip (03/16/20): SAB at L3/L4 (x2 attempts) at [facility] History of tonsillectomy Family History Mother Colorectal cancer Hearing loss Cancer Denies family history of Ovarian cancer Prostate cancer No family history of adverse response to anesthesia No family history of bleeding disorder Heart disease Allergies Myocardial infarction Breast cancer Hypertension Asthma Social History Smoking Status: Former smoker Tobacco Type: Cigarettes Cigarettes Per Day: 1 pack per week; Smoking End Date: 2009; Number of Years Since Quit: 10; Second Hand Exposure: No; Do You Dip or Chew Tobacco: No; Tobacco Cessation Education Requested by Patient: No Hx Alcohol Use: No Hx Substance Use: No Preferred Language: Bahraini Communication Ability: Effective Deli Worker Required: No Beliefs That Will Affect Care: None marital status: Current Living Situation: Spouse current occupational status: retired How many Children do You have: 3 Other Information That Helps Us Care for You: No Feels Safe at Home: Yes Safety Concerns: Feels Safe At This Time caffeine: Yes (Coffee ) Dental Care, Regularly: Yes Seatbelt Use: always Sunscreen Use: No Assistive Devices: Walker Review of Systems All systems reviewed & are unremarkable except as noted in HPI & below. Physical Exam On physical examination of the left knee, she has a slight valgus deformity. She has tenderness palpation over the distal femoral condyles and over the joint lines.. Constitutional WD/WN, vitals as above Eyes PERRL, conjunctivae normal, anicteric sclerae ENMT external ear and nose normal, oropharynx normal Neck trachea midline, no thyromegaly Respiratory normal respiratory effort Cardiovascular RRR, no murmur, no edema Gastrointestinal (Abdomen) normal bowel sounds, soft, nontender, no hepatosplenomegaly Psychiatric A+Ox3, euthymic affect Results & Data Results & Data Laboratory Results . Diagnostic Findings X-rays of the left knee show advanced osteoarthritis with joint space narrowing, osteophyte formation, and [id number] articulation. PG Care Time/CCT Total # of Minutes Spent Total Time Spent with Patient: Total time spent is greater than 50% in coordination of care (as documented) at patient's floor/unit and/or counseling patient: Coding Level of Care Code None Diagnoses Osteoarthritis of left knee M17.12
[2021-04-15] MEDS ORDERED: GABAPENTIN 300 MG CAP PO SCH (07:20)
[2021-04-15] MEDS ORDERED: BUPIVACAINE 0.5 % 5 MG/1 ML PF 10ML VIAL ONE (07:48)
[2021-04-15] MEDS ORDERED: ONDANSETRON INJ 2 MG/ML 2 ML VIAL ONE (08:21)
[2021-04-15] MEDS ORDERED: PROPOFOL IV EMULSION 10 MG/ML 20 ML VIAL IV ONE (08:21)
[2021-04-15] MEDS ORDERED: MIDAZOLAM HCL 1 MG/ML 2ML VIAL ONE (08:21)
[2021-04-15] MEDS ORDERED: ONDANSETRON INJ 2 MG/ML 2 ML VIAL IV PRN ×2 (08:31→12:25)
[2021-04-15] MEDS ORDERED: ePHEDrine sulfate 50 MG/ML AMP IV PRN (08:31)
[2021-04-15] MEDS ORDERED: ATROPINE SULFATE 0.1 MG/ML 10ML SYR IV PRN (08:31)
[2021-04-15] MEDS ORDERED: fentaNYL citrate 100 MCG/2 ML VIAL IV PRN (08:31)
[2021-04-15] MEDS ORDERED: ORTHO JOINT ANESTHETIC ONE (08:52)
[2021-04-15] MEDS ORDERED: fentaNYL citrate 100 MCG/2 ML VIAL ONE (08:55)
--- NOTE | 2021-04-15 10:54 | Operative Report ---
PG Post Operative Report Pre & Post Diagnosis Operation Date: 04/15/21 08:40 Pre-Op Diagnosis: Left Knee Osteoarthritis Post-Op Diagnosis: Left Knee Osteoarthritis I identified the patient and participated in the time-out.: Yes Procedure Operation Date: 04/15/21 08:40 Actual Procedures p Left Total Knee Arthroplasty(Left) - Gen Jean DO Surgeon Gen Jean DO Siding Applicator Gen Fay PAC Estimated Blood Loss 10 Findings Consistent with Post-Op Diagnosis Specimens Left femoral and tibial bone Complications none Disposition Disposition: Recovery Room Indications Rachelle is a pleasant 85-year-old female who presented my office with complaints of chronic increasing left knee pain. X-rays and clinical examination were diagnostic for advanced osteoarthritis of the left knee. After failing conservative treatment, she elected proceed with a left total knee arthroplasty. Description of Procedure Implants used: I used a Rell Persona total knee arthroplasty system with a size 11 narrow femur, F tibia, 35 patella, and a size 10 medial congruent polyethylene bearing. All components were cemented in place with Biomet cement. Rachelle arrived [facility] for the above procedure. She was seen in the preoperative holding area and the operative extremity was identified and signed. She was given a preoperative antibiotic, TXA, a spinal anesthetic and an adductor nerve block. She was taken back to the operating room and laid on the table in supine position. She was given basic sedation. The operative knee was then prepped and draped in sterile fashion. A timeout was done, and the patient and the operative extremity was properly identified. A midline incision was made directly over the patella. Dissection was taken down to the extensor mechanism. A subvastus arthrotomy was used. The medial retinaculum was released and the fat pad was mostly excised. The knee was flexed and the ACL, PCL, and meniscus were removed. A drill was sent down the center of the femoral canal followed by an intramedullary luca. Off that luca a distal femoral cutting block was placed. 9 mm was resected off the distal femur at 5 of valgus. A posterior referencing AP sizing guide was then placed on the distal femur. The femur measured to be a size 11 narrow. 2 drill holes were placed in 3 of external rotation. A 4-in-1 cutting block was then impacted into place. Anterior, posterior, and chamfer cuts were then made. The proximal tibia was then exposed. An external tibial alignment guide was placed. A tibial cut guide was then anchored in place and the proximal tibia was then resected. The posterior aspect of the knee was then opened up and any additional meniscus fragments and osteophytes were removed. The tibia measured to be a size F. The tibial plate was then placed in the appropriate rotation and the tibia was drilled and punched. Trial components were then placed. I used a size 10 medial congruent polyethylene insert. The knee was brought through a full range of motion and felt to be stable. The peg holes for the femoral component were then drilled. The patella was then everted and 9 mm was resected off the posterior aspect of the patella. The patella measured to be a size 35. 3 peg holes were then drilled. A trial patella was placed. The knee was once again brought through a full range of motion and felt to be stable. Trial components were then removed. The surrounding soft tissues were injected with 100 cc of an orthopedic pain control cocktail. All components were then cemented into place with Biomet cement. The final polyethylene insert was then snapped into place. Once cement was dry the tourniquet was deflated. Hemostasis was obtained. A dilute betadyne lavage was then done for 3 minutes. The joint was then irrigated with normal saline solution. The subvastus arthrotomy was then closed with #1 Vicryl suture. The skin was closed with 2-0 Vicryl, 3-0V lock suture, and abner. A soft compressive dressing was placed. She was then transferred to a hospital bed and taken to the postanesthesia care unit in stable condition. She tolerated the procedure well. Gen Fay PA-C, was present for the entire procedure. He was critical for patient positioning, prepping, draping, retraction exposure, wound closure and application of sterile dressing. I attest to the content of the Intraoperative Record and any orders documented therein. Any exceptions are noted below.
[2021-04-15] MEDS ORDERED: PHENYLEPHRINE 100MCG/ML 5ML SYR ONE (10:56)
[2021-04-15] MEDS ORDERED: oxyCODONE/ACETAMINOPHEN 5mg/325mg TAB PO PRN (11:16)
--- NOTE | 2021-04-15 11:44 | XRay Report ---
LEFT KNEE 2 VIEWS History: Left total knee arthroplasty. Degenerative arthritis. Postop. FINDINGS: The patient is status post a left total knee arthroplasty. The hardware is intact. No fract ure or dislocation. Skin abner are in place. IMPRESSION: Left total knee arthroplasty. No evidence for hardware complication. ACT 112: Negative or not required by law. Electronically signed by: Joel Coley M.D. 04/15/2021 11:42 AM
[2021-04-15] MEDS ORDERED: NALOXONE HCL 0.4 MG/1 ML VIAL/CARP IV PRN (12:25)
[2021-04-15] MEDS ORDERED: bisacodyL 10 MG SUPP PR PRN (12:25)
[2021-04-15] MEDS ORDERED: METOCLOPRAMIDE HCL INJ 5 MG/ML 2 ML VIAL IV PRN (12:25)
[2021-04-15] MEDS ORDERED: SODIUM CHLORIDE 0.9% 1000ML 1,000 ML IV SCH (12:25)
[2021-04-15] MEDS ORDERED: oxyCODONE HCL IR 5 MG TAB (IMMEDIATE RELEASE) PO PRN (12:25)
[2021-04-15] MEDS ORDERED: HYDROmorphone INJ 0.5 MG/0.5 ML SYR IV PRN (12:25)
[2021-04-15] MEDS ORDERED: MAGNESIUM HYDROXIDE SUSP 30 ML UDC PO PRN (12:25)
--- NOTE | 2021-04-15 12:33 | Anesthesiology Progress Note ---
Date of Service April 15, 2021 Anesthesia Post Procedure Vital Signs Vital Signs: Temp Pulse Resp BP Pulse Ox 04/15/21 11:55 97.3 F L 63 15 123/71 96 04/15/21 11:45 97.3 F L 64 15 129/70 97 04/15/21 11:35 74 18 122/68 92 04/15/21 11:25 83 17 129/72 97 04/15/21 11:19 97.9 F 77 15 122/69 97 04/15/21 07:00 98.2 F 65 20 158/79 H 97 Pain Intensity Left Knee: Pain Intensity: 2 Transfer of Care Handoff Completed per policy Notes Mental Status: alert / awake / arousable and participated in evaluation Patient Amnestic to Procedure: Yes Nausea / Vomiting: adequately controlled Pain: adequately controlled Airway Patency, RR, SpO2: stable & adequate BP & HR: stable & adequate Hydration State: stable & adequate Neuraxial Anesthesia: was administered and sensory block is resolving Anesthetic Complications: no major complications apparent and Pt Satisfied with anesthetic care
[2021-04-15] MEDS ORDERED: ALBUTEROL HFA 8 GM INHALER INH PRN (12:38)
[2021-04-15] MEDS: KETOROLAC TROMETHAMINE 15 MG/ML VIAL IV SCH ×2 (13:44→17:58)
[2021-04-15] MEDS: ACETAMINOPHEN 500 MG TAB PO SCH ×2 (13:44→21:37)
[2021-04-15] MEDS: ceFAZolin 2000MG 2,000 MG/15 ML SYR IV SCH (18:37)
[2021-04-15] MEDS: ASPIRIN 81 MG ECTAB PO SCH (20:51)
[2021-04-15] MEDS: DOCUSATE SODIUM 100 MG CAP PO SCH (20:51)
[2021-04-15] MEDS ORDERED: SIMVASTATIN 20 MG TAB PO SCH (21:00)
[2021-04-15] MEDS ORDERED: METHENAMINE HIPPURATE 1 GM TAB PO SCH (21:00)
[2021-04-15] MEDS ORDERED: SENNA 8.6 MG TAB PO SCH (21:00)
[2021-04-16] MEDS: KETOROLAC TROMETHAMINE 15 MG/ML VIAL IV SCH ×2 (00:17→04:50)
[2021-04-16] MEDS: ceFAZolin 2000MG 2,000 MG/15 ML SYR IV SCH (03:27)
[2021-04-16] MEDS: ACETAMINOPHEN 500 MG TAB PO SCH (04:50)
--- NOTE | 2021-04-16 06:42 | Orthopedic Progress Note ---
Date of Service April 16, 2021 Assessment & Plan (1) Status post left knee replacement: Overall she is doing very well. She denies any pain in the left knee. She is on aspirin for DVT prophylaxis. She will be seen by physical therapy today for ambulation and range of motion exercises. She can be discharged home later today. She will follow-up with orthopedics in 2 weeks. Subjective Rachelle was seen and examined at bedside this morning. Overall she is doing very well. She denies any pain in the left knee. She has been ambulating up and down the hallways. She was little confused this morning but otherwise has no complaints.. Review of Systems All systems reviewed & are unremarkable except as noted in HPI & below. Physical Exam On physical examination of the left knee, the dressing is clean and dry. She is sitting at bedside with the knee flexed 90 degrees.. Results & Data Results & Data Laboratory Results . Diagnostic Findings Postoperative x-rays of the left knee show the prosthesis to be in anatomic alignment without any evidence of fracture, dislocation, or loosening. PG Care Time/CCT Total # of Minutes Spent Total Time Spent with Patient: Total time spent is greater than 50% in coordination of care (as documented) at patient's floor/unit and/or counseling patient: Coding Level of Care Code 85202 Post Operative Follow-Up Diagnoses Status post left knee replacement Z96.652
--- NOTE | 2021-04-16 06:43 | Discharge Summary ---
Date of Service April 16, 2021 Admission HPI (Per Admitting) Rachelle is a pleasant 85-year-old female who is been dealing with chronic increasing left knee pain. X-rays and clinical examination have been diagnostic for advanced osteoarthritis of the left knee. After failing conservative treatment, she has elected proceed with a left total knee arthroplasty.. Admission Exam (Per Admitting) On physical examination of the left knee, she has a slight valgus deformity. She has tenderness palpation over the distal femoral condyles and over the joint lines.. Principal Diagnosis Same as "Discharge Diagnosis" noted below under Discharge Instructions. Discharge Exam On physical examination of the left knee, the dressing is clean and dry. She is sitting at bedside with the knee flexed 90 degrees.. Discharge Data Procedures Performed Operation Date: 04/15/21 08:40 Actual Procedures p Left Total Knee Arthroplasty(Left) - Gen Jean DO Ordered Studies 04/15/21 05:00 US - OR guided needle placemen Routine Hospital Course (1) Status post left knee replacement: On April 15, 2021 Rachelle arrived at [facility] and underwent a left knee replacement without complication. She had a spinal anesthetic. Postoperatively she was started on aspirin for DVT prophylaxis and transferred to the general orthopedic floors. Her hospital course was uneventful. On postop day #1 her vital signs were stable and her pain was well controlled. She was able to participate well with physical therapy doing ambulation and range of motion exercises. She was then discharged to home. She will follow-up with orthopedics in 2 weeks. PG Care Time/CCT Total # of Minutes Spent Total Time Spent with Patient: Total time spent is greater than 50% in coordination of care (as documented) at patient's floor/unit and/or counseling patient: Discharge Plan Discharge Items Patient Disposition: Home - Home Health Services Reason For Visit: DJD Left Knee Discharge Diagnosis: Status post left knee replacement Activity: As commented below Non-emergency contact: Surgeon Call non-emergency contact if: your wound has increased redness and your wound has increased drainage Follow-up/Referrals: Pavithra Segovia MD [Primary Care Provider] - Diet: Regular Addtl Attending Provider Instructions: Activity and Therapy Recommendations: * If you are using [facility] then therapy will be provided at your home until they feel you have accomplished all of your goals. * If you are using [facility] then Physical Therapy will be provided until they feel you are ready to start Outpatient Physical Therapy. * If you are not using home therapy then Outpatient Physical Therapy should start about 3-5 days from your day of surgery. Therapy will last about 6-10 weeks * It is important not to put a pillow under your knee when you are relaxing or sleeping. It is just as important to make sure you are getting your knee perfectly straight as it is to regain your knee bend. * You were shown a series of exercises in the hospital. Do these exercises three times each day including the exercises you were shown in physical therapy. * Get up and walk several times each day. For the first four weeks, try not to stand or walk for more than one hour at a time. If you do stand or walk for more than one hour, you will not hurt anything, but your leg will likely swel l. * As you feel comfortable, you may change from the walker or crutches to a cane and then to independent walking. Medications: * Narcotic You will likely be sent home from the hospital with a prescription for the narcotic pain medication that worked best throughout your stay. * Aspirin Most patients will be required to take Aspirin 81mg twice a day for 6 weeks after surgery. This is obtained [id number] and a prescription is not necessary. * Other medications may be prescribed for specific circumstances. If you have any questions, please call the office at . * Resume previous home medications unless otherwise instructed TEDs/Elastic Stockings: The white elastic stockings help limit swelling and prevent blood clots from forming in your legs.~ The more you wear them, the more they work. Wear them for six weeks. Dressing Care: The dressing can be changed after physical therapy on postop day #1. Daily dry dressing changes for a few days, especially if the incision is still draining some. If the incision is not draining then you may leave the abner open to air. If there is a little bit of drainage or if the abner are getting stuck on your clothing then cover the incision with a dry dressing. The abner will be removed at your 2 week follow-up appointment. Showering: You may shower 5 days from the day of surgery as long as the incision is no longer draining. You may shower with the abner exposed. Let soapy water run over the abner and pat them dry. Do not scrub or soak the incision. Things To Watch For: * Drainage from the incision site that occurs more than one week after your surgery. * Increased redness at the incision site. * Fever above 102 degrees Fahrenheit. * Unusual chest pain or shortness of breath. * Call [facility] at with any of the above problems Follow-Up Visit: Follow-up with Dr. Jean's PA (Gen Fay) 2-3 weeks after your day of surgery. He will remove your abner and answer any questions. If you have any additional questions or concerns, Dr Jean is usually in the office at the same time and will be available An appointment was probably scheduled when you signed-up for surgery in the office. If you have any questions call Office Instructions: More detailed instructions as well as Frequently Asked Questions were provided in a folder by our office when you signed-up for surgery. Please review these instructions when you get home. If you have any further questions or concerns, please feel free to call the office at [phone] Pending Studies at Discharge: No Stand-Alone Forms: My [facility], Smoking Cessation Medications and DC Order Prescriptions: No Action amlodipine 10 mg tablet 10 mg PO QAM Qty: 90 RF: 3 simvastatin 20 mg tablet 20 mg PO HS Qty: 90 RF: 3 Prolia 60 mg/mL syringe 60 mg subcut UD Qty: 1 RF: 1 methenamine hippurate 1 gram tablet 1 g PO QPM RF: 0 cholecalciferol (vitamin D3) [Vitamin D3] 125 mcg (5,000 unit) tablet 30,000 unit PO QAM RF: 0 multivitamin Tablet 1 tab PO QAM RF: 0 albuterol sulfate [ProAir HFA] 90 mcg/actuation HFA aerosol inhaler 2 puffs INH QID PRN (Reason: Shortness Of Breath) RF: 0 Discharge Orders: Discharge Order (Routine); Ordered 04/16/21 Ordered By: Gen Jean Admission Data Admit Date/Time: 04/15/21 11:23 Attending Provider: Gen Jean Admit Provider: Gen Jean Primary Care Provider: Pavithra Segovia
[2021-04-16] MEDS ORDERED: dexAMETHasone 4 MG TAB PO SCH (08:00)
[2021-04-16] MEDS: DOCUSATE SODIUM 100 MG CAP PO SCH (08:45)
[2021-04-16] MEDS: ASPIRIN 81 MG ECTAB PO SCH (08:45)
[2021-04-16] MEDS ORDERED: MULTIVITAMIN TAB PO SCH (09:00)
[2021-04-16] MEDS ORDERED: amLODIPine BESYLATE 5 MG TAB PO SCH (09:00)
== END 2021-04-16 12:02 | disposition home or self-care (01) ==
LOC: 3E 06:19 → ASU 06:19

== ENCOUNTER 2021-04-27 15:01 | Inpatient (IN) ==
[2021-04-27] MEDS ORDERED: AMPICILLIN/SULBACTAM SOD 3,000 MG in 0.9 % SODIUM CHLORIDE 100 ML IV STA (15:32)
--- NOTE | 2021-04-27 15:37 | Emergency Department Note ---
Impression & Plan Cellulitis of left leg, Left leg swelling, S/P left knee surgery ED Provider Note NAME: SHAHLA RIVERA AGE: 85 SEX: F : 1935 ARRIVES VIA: Walk-In INFORMANT: [Patient][family] ED PROVIDER(S): [José Nunes MD] CHIEF COMPLAINT: Leg pain HISTORY OF PRESENT ILLNESS: The patient is an 85-year-old female who had a left knee replacement surgery done on April 15, 12 days ago. Patient states that 3 or so days ago she began noticing some redness around the surgical site. In the last day or so, the redness has extended down to her ankle. There is some swelling as well to the left leg that was not present before. There has been no fever, no chills. No cough or cold or congestion. The patient states that she is able to walk on the leg without difficulty and she really does not have that much knee pain. She spoke to her doctor's office and was referred here for the possibility of cellulitis or DVT. REVIEW OF SYSTEMS: See HPI for pertinent positives and negatives. A total of ten systems were reviewed and were otherwise negative. PMHx/PSHx: See Below SOCIAL HISTORY: See Below. PHYSICAL EXAM: GENERAL: Patient is in no acute distress. HEENT: No acute trauma, normocephalic atraumatic, mucous membranes moist, no nasal congestion, no scleral icterus. NECK: No stridor, no adenopathy, no meningismus, trachea is midline. LUNGS: Clear to auscultation bilaterally, no wheeze, no rhonchi, breath sounds equal. HEART: Without murmurs gallops or rubs, regular rate and rhythm. ABDOMEN: Soft, nontender, bowel sounds positive, no hernias, no peritonitis. EXTREMITIES: No cyanosis. She does have some left lower extremity edema when compared to the right. There are abner over the anterior aspect of the left knee. There is erythema extending from the surgical wound down to the ankle. There is some warmth. No drainage. Movement of the left knee causes really no pain. NEUROLOGIC: Oriented x 3, no acute motor or sensory deficits, no focal weakness. SKIN: No rash, no jaundice, no diaphoresis. DIFFERENTIAL DIAGNOSIS: Cellulitis, DVT, septic joint, bacteremia, sepsis, neurovascular compromise, joint effusion, electrolyte imbalance, anemia, among others. EMERGENCY DEPARTMENT COURSE/PROCEDURES: MEDICAL DECISION MAKING: There is no leukocytosis or concerning anemia. There is a normal platelet count. No significant electrolyte abnormality or kidney failure. Lactic acid level is not elevated making sepsis less likely. Left knee film shows the prosthesis to be in proper position. There was a joint effusion present. No fracture. Left leg ultrasound does not show any evidence for DVT. On exam, there was a cellulitis from the knee to the ankle. There was no evidence for neurovascular compromise. No pain to move the left knee joint. The patient presents with a red left leg. She had left knee surgery around 2 weeks ago. She has a cellulitis clinically. The patient was given IV Unasyn and IV daptomycin. I did speak with orthopedi cs. The patient is to be hospitalized for IV antibiotic therapy. She was not felt safe for discharge given her recent left knee prosthesis surgery. I spoke with the patient and her family, I talked with case management. The on- call hospitalist was consulted. Past Med/Surg History Medical History AAA (abdominal aortic aneurysm) monitors annually with Dr. Carlson Chronic back pain Chronic obstructive pulmonary disease Deafness in left ear H/O gastroesophageal reflux (GERD) Hip fracture due to osteoporosis s/p surgical intervention History of skin cancer Hyperlipidemia Hypertension Osteoarthritis Osteoporosis Presence of pessary Surgical History (Updated 04/27/21 @ 18:29 by José Nunes MD) History of appendectomy History of bladder surgery History of cataract surgery R/L History of colonoscopy History of hysterectomy LINDSEY with BSO History of open reduction and internal fixation (ORIF) procedure Left anterior bipolar hip (03/16/20): SAB at L3/L4 (x2 attempts) at [facility] History of tonsillectomy Family History Mother Colorectal cancer Hearing loss Cancer Denies family history of Ovarian cancer Prostate cancer No family history of adverse response to anesthesia No family history of bleeding disorder Heart disease Allergies Myocardial infarction Breast cancer Hypertension Asthma Social History Smoking Status: Never smoker Tobacco Type: Cigarettes Cigarettes Per Day: 1 pack per week; Number of Years Since Quit: 10; Second Hand Exposure: No; Hx Alcohol Use: No Hx Substance Use: No Preferred Language: Arabic Communication Ability: Effective French Lecturer Required: No Beliefs That Will Affect Care: None marital status: Current Living Situation: Spouse current occupational status: retired How many Children do You have: 3 Feels Safe at Home: Yes caffeine: Yes (Coffee ) Dental Care, Regularly: Yes Seatbelt Use: always Sunscreen Use: No Assistive Devices: Hearing Aid - Right and Walker Allergies Allergies Allergy/AdvReac Type Severity Reaction Status Date / Time Sulfa (Sulfonamide AdvReac Intermediate Severe Verified 04/27/21 15:24 Antibiotics) vomiting Home Meds Home Medications Medication Instructions Recorded Confirmed albuterol sulfate 90 mcg/actuation 2 puffs INH QID PRN 03/15/20 04/27/21 aerosol inhaler (ProAir HFA) multivitamin 1 tab PO QAM 03/15/20 04/27/21 cholecalciferol (vitamin D3) 125 15,000 unit PO QAM tab 10/09/20 04/27/21 mcg (5,000 unit) tablet (Vitamin D3) methenamine hippurate 1 gram tablet 1 g PO QPM tab 10/09/20 04/27/21 Previous Rx's Medication Instructions Recorded amlodipine 10 mg tablet 10 mg PO QAM #90 tab 12/06/20 simvastatin 20 mg tablet 20 mg PO HS #90 tab 01/29/21 denosumab 60 mg/mL subcutaneous 60 mg SUBCUT UD #1 ml 04/08/21 syringe (Prolia) aspirin 81 mg tablet,delayed 81 mg PO BID 42 Days #84 tab 04/16/21 release tramadol 50 mg tablet 50 mg PO Q6H PRN #30 tab 04/16/21 Results & Data (ED) Vital Signs Vital Signs - 24 hr 04/27/21 15:14 04/27/21 18:08 Temperature 36.6 C Temperature Source Temporal Artery Scan Pulse Rate 76 Pulse Rate [Finger] 70 Respiratory Rate 20 18 Respiratory Effort / Characteristics Non-Labored Spontaneous Respiratory Depth Normal Respiratory Pattern Regular Blood Pressure 121/71 Blood Pressure [Left Arm] 145/80 H Blood Pressure Mean 87 Blood Pressure Mean [Left Arm] 101 Pulse Oximetry 97 96 Oxygen Delivery Method Room Air Room Air Sepsis Recent Fever Within 48 Hours No Sepsis New/Unexplained Change in Mental Status No Sepsis Action Taken by Nursing No Action Required Home Medications Current Medication List: was personally reviewed by me Laboratory Data Attestation: I reviewed the patient's lab results. Result diagrams: 04/27/21 15:56 04/27/21 15:56 Lab Results 04/27/21 04/27/21 04/27/21 Range/Units 15:56 15:56 15:56 WBC 6.86 (4.8-10.8) K/uL RBC 3.75 L (4.2-5.4) M/uL Hgb 12.2 (12.0-16.0) g/dL Hct 35.3 L (37-47) % MCV 94.1 (80-100) fL MCH 32.5 (25-34) pg MCHC 34.6 (32-36) g/dL RDW Std Deviation 49.1 H (36.4-46.3) fL RDW Coeff of Spenser 14.3 (11.5-14.5) % Plt Count 366 (130-400) K/uL MPV 8.5 (7.4-10.4) fL Immature Gran % (Auto) 0.4 % Neut % (Auto) 67.6 % Lymph % (Auto) 18.2 % Wayne % (Auto) 11.5 % Eos % (Auto) 1.7 % Baso % (Auto) 0.6 % Neut # (Auto) 4.63 (1.4-6.5) K/uL Lymph # (Auto) 1.25 (1.2-3.4) K/uL Wayne # (Auto) 0.79 H (0.11-0.59) K/uL Eos # (Auto) 0.12 (0-0.5) K/uL Baso # (Auto) 0.04 (0-0.2) K/uL Immature Gran # (Auto) 0.03 H (0.00-0.02) K/uL Sodium 139 (136-145) mmol/L Potassium 4.1 (3.5-5.1) mmol/L Chloride 104 (98-107) mmol/L Carbon Dioxide 31 (21-32) mmol/L Anion Gap 4.0 (3-11) BUN 17 (7-18) mg/dl Creatinine 1.03 (0.6-1.2) mg/dl Est Cr Clr Drug Dosing 43.8 ml/min Est GFR ( Amer) 57.8 ml/min Est GFR (Non-Af Amer) 49.9 ml/min BUN/Creatinine Ratio 16.9 (10-20) Glucose 106 H (70-99) mg/dl Lactate 1.1 (0.4-2.0) mmol/L Calcium 9.4 (8.5-10.1) mg/dl Total Bilirubin 0.5 (0.2-1) mg/dl AST 21 (15-37) U/L ALT 21 (12-78) U/L Alkaline Phosphatase 84 (45-117) U/L Total Protein 6.8 (6.4-8.2) gm/dl Albumin 3.4 (3.4-5.0) gm/dl Globulin 3.4 (2.5-4.0) gm/dl Albumin/Globulin Ratio 1.0 (0.9-2) Administered Medications Discontinued Medications Ampicillin Sodium/Sulbactam Sodium 3,000 mg/ Sodium Chloride 108 mls @ 200 mls/hr IV NOW STA; Protocol Stop: 04/27/21 16:04 Last Infusion: 04/27/21 17:00 Dose: 0 mls/hr Documented by: [id number] Admin: 04/27/21 16:29 Dose: 200 mls/hr Documented by: [id number] Imaging Data Radiologist's Impression: Knee X-Ray 04/27/21 15:32 LEFT KNEE 3 VIEWS CLINICAL HISTORY: Left knee swelling. Recent surgery. FINDINGS: AP, crosstable lateral, and sunrise views of the left knee are compared to study dated 04/15/2021. The skeletal structures are osteopenic. No fracture is identified. A left knee arthroplasty is in near-anatomic alignment. There has been undersurface remodeling of the patella. No periprosthetic lucency is identified. There is a large joint effusion. Soft tissue edema is present around the knee and skin clips are in place. There is advanced atherosclerotic calcification of the popliteal artery. IMPRESSION: 1. Large joint effusion and soft tissue swelling with no acute bony abnormality identified. 2. A left knee arthroplasty is in near-anatomic alignment. Electronically signed by: José Sarmiento M.D. 04/27/2021 4:33 PM Venous Doppler Study 04/27/21 15:32 ULTRASOUND LEFT LOWER EXTREMITY VENOUS CLINICAL HISTORY: Left leg swelling. Recent surgery. COMPARISON STUDY: Left lower extremity venous ultrasound dated 03/04/2018. TECHNIQUE: Real-time, grayscale, and color Doppler sonography of the deep veins of the left lower extremity was performed from the inguinal crease to the calf. Compression and augmentation were utilized. FINDINGS: There is no sonographic evidence of deep venous thrombosis identified in the left lower extremity. The common femoral, superficial femoral, and popliteal veins are patent and normally compressible. The greater saphenous vein and the profunda femoris vein at the junction with the common femoral vein are clear. The visualized calf veins are patent. Soft tissue edema is seen in the calf. IMPRESSION: There is no sonographic evidence of deep venous thrombosis identified in the left lower extremity. ACT 112: Negative or not required by law. Electronically signed by: José Sarmiento M.D. 04/27/2021 5:17 PM Discharge Plan Visit Data Chief Complaint: Knee Injury/Pain Stated Complaint: POSSIBLE CELLULITIS L KNEE SURGERY 04/15/21 ED Provider: José Nunes Discharge Problem: Cellulitis of left leg, Left leg swelling, S/P left knee surgery Patient Disposition: Admitted As Inpatient Condition: Good Forms Stand Alone Forms: [facility] Lydia StatAce Prescriptions Prescriptions: No Action amlodipine 10 mg tablet 10 mg PO QAM Qty: 90 RF: 3 simvastatin 20 mg tablet 20 mg PO HS Qty: 90 RF: 3 Prolia 60 mg/mL syringe 60 mg subcut UD Qty: 1 RF: 1 methenamine hippurate 1 gram tablet 1 g PO QPM RF: 0 cholecalciferol (vitamin D3) [Vitamin D3] 125 mcg (5,000 unit) tablet 15,000 unit PO QAM RF: 0 multivitamin Tablet 1 tab PO QAM RF: 0 albuterol sulfate [ProAir HFA] 90 mcg/actuation HFA aerosol inhaler 2 puffs INH QID PRN (Reason: Shortness Of Breath) RF: 0 aspirin 81 mg Tablet,Delayed Release (Dr/Ec) 81 mg PO BID 42 Days Qty: 84 RF: 0 tramadol 50 mg tablet 50 mg PO Q6H PRN (Reason: pain) Qty: 30 RF: 0 Referrals Referrals: Pavithra Segovia MD [Primary Care Provider] -
[2021-04-27 16:17] LABS: Basophils # (auto) 0.04 K/uL (0-0.2); Basophils % (auto) 0.6 %; Eosinophils # (auto) 0.12 K/uL (0-0.5); Eosinophils % (auto) 1.7 %; Hematocrit (blood only) 35.3 % (37-47); Hemoglobin 12.2 g/dL (12.0-16.0); Immature Granulocytes # (auto) 0.03 K/uL (0.00-0.02); Immature Granulocytes % (auto) 0.4 %; Lymphocytes # (auto) 1.25 K/uL (1.2-3.4); Lymphocytes % (auto) 18.2 %; Mean Corpuscular Hemoglobin 32.5 pg (25-34); Mean Corpuscular Hgb Conc 34.6 g/dL (32-36); Mean Corpuscular Volume 94.1 fL (80-100); Mean Platelet Volume 8.5 fL (7.4-10.4); Monocytes # (auto) 0.79 K/uL (0.11-0.59); Monocytes % (auto) 11.5 %; Neutrophils # (auto) 4.63 K/uL (1.4-6.5); Neutrophils % (auto) 67.6 %; Platelet Count 366 K/uL (130-400); RDW Coefficient of Variation 14.3 % (11.5-14.5); RDW Standard Deviation 49.1 fL (36.4-46.3); Red Blood Count 3.75 M/uL (4.2-5.4); White Blood Count 6.86 K/uL (4.8-10.8)
--- NOTE | 2021-04-27 16:34 | XRay Report ---
LEFT KNEE 3 VIEWS CLINICAL HISTORY: Left knee swelling. Recent surgery. FINDINGS: AP, crosstable lateral, and sunrise views of the left knee are compared to study dated 04/15. The skeletal structures are osteopenic. No fracture is identified. A left knee arthroplasty is in near-anatomic alignment. There has been undersurface remodeling of the patella. No periprosthetic lucency is identified. There is a large joint effusion. Soft tissue edema is present around the knee and skin clips are in place. There is advanced atherosclerotic calcification of the popliteal artery . IMPRESSION: 1. Large joint effusion and soft tissue swelling with no acute bony abnormality identified. 2. A left knee arthroplasty is in near-anatomic alignment. Electronically signed by: José Sarmiento M.D. 04/27/2021 4:33 PM
[2021-04-27 16:35] LABS: Albumin Level 3.4 gm/dl (3.4-5.0); BUN Creatinine Ratio 16.9 (10-20); Calcium 9.4 mg/dl (8.5-10.1); Creatinine Clr Calc Pharmacy 43.8 ml/min; Est GFR (African American) 57.8 ml/min; Est GFR (Non-African American) 49.9 ml/min; Potassium 4.1 mmol/L (3.5-5.1)
[2021-04-27 16:38] LABS: Bilirubin,Total 0.5 mg/dl (0.2-1); Globulin 3.4 gm/dl (2.5-4.0); Total Protein 6.8 gm/dl (6.4-8.2)
--- NOTE | 2021-04-27 17:19 | Ultrasound Report ---
ULTRASOUND LEFT LOWER EXTREMITY VENOUS CLINICAL HISTORY: Left leg swelling. Recent surgery. COMPARISON STUDY: Left lower extremity venous ultrasound dated 03/04/2018. TECHNIQUE: Real-time, grayscale, and color Doppler sonography of the deep veins of the left lower ext remity was performed from the inguinal crease to the calf. Compression and augmentation were utilized . FINDINGS: There is no sonographic evidence of deep venous thrombosis identified in the left lower ext remity. The common femoral, superficial femoral, and popliteal veins are patent and normally compress ible. The greater saphenous vein and the profunda femoris vein at the junction with the common femora l vein are clear. The visualized calf veins are patent. Soft tissue edema is seen in the calf. IMPRESSION: There is no sonographic evidence of deep venous thrombosis identified in the left lower e xtremity. ACT 112: Negative or not required by law. Electronically signed by: José Sarmiento M.D. 04/27/2021 5:17 PM
[2021-04-27] MEDS ORDERED: DAPTOmycin 225 MG in SYRINGE 0 ML IV ONE (18:14)
[2021-04-27] MEDS ORDERED: ACETAMINOPHEN 325 MG TAB PO PRN (18:31)
--- NOTE | 2021-04-27 18:47 | History & Physical Report ---
Date of Service April 27, 2021 Assessment & Plan Admission and Anticipated Discharge Date Admission Date: 85 y/o F Hx HTN, HLD, COPD, osteoporosis. She had her L knee replaced 04/15. She presents with extensive inflammation of her L leg, extending form the surgical wound down to her ankle. She has not had fevers. Initial labs are unremarkable. 1) Cellulitis - exam does not support joint involvement, although this cannot be completely discounted. She is placed on Unasyn/Dapto which were started in the ER. Ortho are consulted. 2) HTN - cont Norvasc 3) HLD - cont Zocor 4) Osteoporosis - she is taking Vit D and Prolia which she can resume in the outpt setting 5) COPD - inhaler provided PRN Full code - Heparin prophylaxis Total time for this admit including review of labs, meds, imaging, records - discussion with pt and ER attending 37 min History of Present Illness Chief Complaint: Inflammation, pain, erythema - L leg - post TKA Primary Care Provider: Pavithra Segovia MD 85 y/o F Hx HTN, HLD, COPD, osteoporosis. She had her L knee replaced 04/15. She presents with extensive inflammation of her L leg, extending form the surgical wound down to her ankle. She has not had fevers. Initial labs are unremarkable. PMH: 1) HTN 2) HLD 3) AAA 4) Osteoporosis 5) COPD 6) Melanoma in situ Surgical: 1) Hysterectomy 2) Tonsillectomy 3) Appendectomy 4) L TKA 04/15/21 Social: Quit smoking 2015. Does not drnk alcohol. Family: Noncontributory due to pt's age Allergies Allergy/AdvReac Type Severity Reaction Status Date / Time Sulfa (Sulfonamide AdvReac Intermediate Severe Verified 04/27/21 15:24 Antibiotics) vomiting Home Medications Medication Instructions Recorded Confirmed Type albuterol sulfate 90 mcg/actuation 2 puffs INH QID PRN 03/15/20 04/27/21 History aerosol inhaler (ProAir HFA) multivitamin 1 tab PO QAM 03/15/20 04/27/21 History cholecalciferol (vitamin D3) 125 15,000 unit PO QAM tab 10/09/20 04/27/21 History mcg (5,000 unit) tablet (Vitamin D3) methenamine hippurate 1 gram tablet 1 g PO QPM tab 10/09/20 04/27/21 History amlodipine 10 mg tablet 10 mg PO QAM #90 tab 12/06/20 04/27/21 Rx simvastatin 20 mg tablet 20 mg PO HS #90 tab 01/29/21 04/27/21 Rx denosumab 60 mg/mL subcutaneous 60 mg SUBCUT UD #1 ml 04/08/21 04/27/21 Rx syringe (Prolia) aspirin 81 mg tablet,delayed 81 mg PO BID 42 Days #84 tab 04/16/21 04/27/21 Rx release tramadol 50 mg tablet 50 mg PO Q6H PRN #30 tab 04/16/21 04/27/21 Rx Past Med/Surg History Medical History AAA (abdominal aortic aneurysm) monitors annually with Dr. Carlson Chronic back pain Chronic obstructive pulmonary disease Deafness in left ear H/O gastroesophageal reflux (GERD) Hip fracture due to osteoporosis s/p surgical intervention History of skin cancer Hyperlipidemia Hypertension Osteoarthritis Osteoporosis Presence of pessary Surgical History (Updated 04/27/21 @ 18:29 by José Nunes MD) History of appendectomy History of bladder surgery History of cataract surgery R/L History of colonoscopy History of hysterectomy LINDSEY with BSO History of open reduction and internal fixation (ORIF) procedure Left anterior bipolar hip (03/16/20): SAB at L3/L4 (x2 attempts) at [facility] History of tonsillectomy Family History Mother Colorectal cancer Hearing loss Cancer Denies family history of Ovarian cancer Prostate cancer No family history of adverse response to anesthesia No family history of bleeding disorder Heart disease Allergies Myocardial infarction Breast cancer Hypertension Asthma Social History Smoking Status: Never smoker Tobacco Type: Cigarettes Cigarettes Per Day: 1 pack per week; Number of Years Since Quit: 10; Second Hand Exposure: No; Hx Alcohol Use: No Hx Substance Use: No Preferred Language: Ivorian Communication Ability: Effective Can Piler Required: No Beliefs That Will Affect Care: None marital status: Current Living Situation: Spouse current occupational status: retired How many Children do You have: 3 Feels Safe at Home: Yes caffeine: Yes (Coffee ) Dental Care, Regularly: Yes Seatbelt Use: always Sunscreen Use: No Assistive Devices: Hearing Aid - Right and Walker Review of Systems Review of Systems: Gen: Denies fevers, night sweats, rigors, fatigue, malaise, weight loss/gain ENT: Denies congestion, throat pain, hearing loss Eyes: Denies acute visual changes CV: Denies CP, palpitations Pulmonary: Denies SOB, cough, wheezing GI: Denies N/V, diarrhea, constipation Neuro: Denies acute or unilateral weakness, acute gait impairment, headache or acute visual changes Musculoskeletal: She has mild post-op pain but is ambulating Endocrine: Denies polydipsia, polyuria Skin: Inflammation/erythema of LLE as above Physical Exam Physical Exam: General: AAO x 3, no distress ENT: No erythema or exudates, no thrush Eyes: KAITY, EOMI Head and neck: Normocephalic, atraumatic, No JVD, neck is supple. Chest/heart: Nontender, S1,2, RRR, no murmurs, no gallops Lungs: CTAB, no wheezing or crackles Abdomen: Nontender, nondistended, BS+ Neuro: AAO x 3, speech is clear, no unilateral weakness or loss of sensation, coordination intact Musculoskeletal: She is able to mobilize the joint without pain Skin: Cellulitis extends from the surgical wound down to the ankle on the L. There is marked warmth and tenderness to palpation. Extremities: No clubbing, cyanosis - minimal edema on L Results & Data Results & Data ([facility] Vital Signs (Past 12 Hours) Vital Signs Temp Pulse Pulse Resp BP BP Pulse Ox 04/27/21 18:08 70 18 145/80 H 96 04/27/21 15:14 97.9 F 76 20 121/71 97 Code Status & VTE Plan VTE Prophylaxis Plan VTE Prophylaxis will be ordered: Yes PG Care Time/CCT Total # of Minutes Spent Total Time Spent with Patient: Total time spent is greater than 50% in coordination of care (as documented) at patient's floor/unit and/or counseling patient: Coding Level of Care Code 85347 Initial Inpt Care Lvl 3
--- NOTE | 2021-04-27 19:28 | Progress Notes ---
The patient is 85 years old. She is just under 2 weeks status post a left total knee replacement done by Dr. Jean. I was called by the home nursing service about her leg. She had what sounds like increased pain, redness, and swelling involving the lower leg since Thursday. Her daughter showed pictures. There had been some oozing from her incision as recently as today. It does not sound like there was a high volume. She denies any significant knee pain. The knee is stiff and painful when she starts to move it, but in general, most of her discomfort has been down towards her ankle. She has a history of COPD. Her health history is noted and reviewed on her chart. She is using aspirin for DVT prophylaxis. She is afebrile. Her vital signs are stable. White count is 6. Labs are otherwise noted. Doppler is negative for blood clot and her x-ray shows good positioning of the components. There is evidence of an intraarticular and prepatellar bursal fluid accumulation. There is no fracture or complication otherwise evident. On exam, she has pretty significant erythema over the anterior aspect of her leg from the bottom of her incision down to the ankle. Tender all along the way, but mostly down towards the ankle where there is 1+ edema. Posterior calf is minimally tender and minimally swollen. Ankle edema actually is closer to 2+. She has intact straight leg raising of the knee. Knee bending from 0 to about 75 degrees. She can wiggle her toes and flex and extend the ankle against resistance and has intact sensation and a 1+ dorsalis pedis pulse. Examining her knee, there is no drainage, but she does have some bruising at the top of her incision and there are some scattered areas of erythema along the incision. Skin wrinkles are present around the knee, but not around the lower leg. I do not palpate a substantial amount of fluid within the knee joint, but there is a moderate amount of fluid within the prepatellar bursa and this might be why the knee was draining. There is no active drainage. I obtained verbal consent discussed the risks and benefits and I went ahead and performed an aspiration after using a double prep with alcohol and Betadine aspirating 20 mL of serous bloody fluid, mostly bloody from the medial aspect superiorly of the prepatellar bursa. This was then sent for Gram stain periprosthetic culture, aerobic and anaerobic. Cell count differential. IMPRESSION: Prepatellar hematoma, status post a left total knee replacement with a left lower leg cellulitis. PLAN: Findings are discussed. Medicine Service is kindly admitting the patient to the hospital, placing her on IV antibiotics. We will follow up on her studies. The leg should be elevated above the heart and we will monitor her for resolution of her cellulitis and any complications related to the knee. At this time, I do not see any convincing evidence of deep infection with the knee. IV antibiotics. she has a prepatellar bursa hematoma. Job ID: [id number] [facility]
[2021-04-27 19:43] LABS: Appearance Synovial Fluid CLOUDY; Color Synovial Fluid RED; Mononuclear WBC Synovial 28.3 %; Polynuclear WBC Synovial 71.7 %; RBC Synovial Fluid (A) 114000 /uL; Source Synovial Fluid KNEE; WBC Synovial Fluid (A) 1395 /ul (0-200)
[2021-04-27] MEDS ORDERED: LACTATED RINGER'S 1,000 ML IV SCH (21:32)
[2021-04-27] MEDS ORDERED: traMADol HCL 50 MG TABLET PO PRN (21:32)
[2021-04-27] MEDS ORDERED: ALBUTEROL HFA 8 GM INHALER INH PRN (21:59)
[2021-04-27] MEDS: AMPICILLIN/SULBACTAM SOD 1,500 MG in 0.9 % SODIUM CHLORIDE 100 ML IV SCH (22:08)
[2021-04-27] MEDS: SIMVASTATIN 20 MG TAB PO SCH (22:40)
[2021-04-27] MEDS: ASPIRIN 81 MG ECTAB PO SCH (22:41)
[2021-04-27] MEDS: HEPARIN SOD 5,000 UNIT/0.5 ML VIAL SQ SCH (22:41)
[2021-04-28] MEDS: METHENAMINE HIPPURATE 1 GM TAB PO SCH ×2 (00:44→19:47)
[2021-04-28] MEDS: AMPICILLIN/SULBACTAM SOD 1,500 MG in 0.9 % SODIUM CHLORIDE 100 ML IV SCH ×4 (04:07→21:56)
--- NOTE | 2021-04-28 07:00 | Orthopedic Progress Note ---
Date of Service April 28, 2021 Assessment & Plan (1) Cellulitis of left leg: Mostly seems like she has cellulitis of the left leg. The x-rays are negative and the ultrasound was negative for DVT. She is currently on Unasyn and daptomycin. The initial seroma aspirate does not appear to be infected. There was many white blood cells but mostly because this was a bloody aspiration. No organisms were seen. The synovial culture showed a white count of 1428% polys. This was not a true synovial aspirate but it does not lead us to think it is an infection. We will continue to watch this closely. I do not want the cellulitis of her leg to lead to a periprosthetic joint infection. She can be up and weightbearing as tolerated. She is on appropriate antibiotics. She does not have an elevated white count and she is afebrile. We will continue to follow this closely. Scot Bush was seen and examined at bedside this morning. She still has a lot of redness of her left leg. She had a seroma aspirated from her left knee by Dr. Cherry yesterday. She is not having much pain in the left knee. The cellulitis is concerning. She was admitted to the hospital and started on IV Unasyn and daptomycin. Review of Systems All systems reviewed & are unremarkable except as noted in HPI & below. Physical Exam On physical examination of the left leg, there is no draining from the wound. The wound looks like it is healing nicely. There is significant cellulitis going from the inferior aspect of her knee wound down to her ankle. Her leg is painful. I can easily do range of motion at bedside from 0 to 90 degrees without any pain.. Constitutional WD/WN, vitals as above Eyes PERRL, conjunctivae normal, anicteric sclerae ENMT external ear and nose normal, oropharynx normal Neck trachea midline, no thyromegaly Respiratory normal respiratory effort Cardiovascular RRR, no murmur, no edema Gastrointestinal (Abdomen) normal bowel sounds, soft, nontender, no hepatosplenomegaly Psychiatric A+Ox3, euthymic affect Results & Data Results & Data Laboratory Results Microbiology 04/27/21 18:56 Knee,Left Gram Stain - Final . Diagnostic Findings . PG Care Time/CCT Total # of Minutes Spent Total Time Spent with Patient: Total time spent is greater than 50% in coordination of care (as documented) at patient's floor/unit and/or counseling patient: Coding Level of Care Code 16029 Subseq Hosp Care Lvl 2 Diagnoses Cellulitis of left leg L03.116
[2021-04-28] MEDS: CHOLECALCIFEROL 1,000 UNITS 25 MCG TAB PO SCH (09:12)
[2021-04-28] MEDS: ASPIRIN 81 MG ECTAB PO SCH ×2 (09:12→19:42)
[2021-04-28] MEDS: amLODIPine BESYLATE 5 MG TAB PO SCH (09:12)
[2021-04-28] MEDS: HEPARIN SOD 5,000 UNIT/0.5 ML VIAL SQ SCH ×2 (09:13→19:42)
[2021-04-28] MEDS: SIMVASTATIN 20 MG TAB PO SCH (19:42)
[2021-04-28] MEDS ORDERED: DAPTOmycin 250 MG in SYRINGE 0 ML IV SCH (20:00)
--- NOTE | 2021-04-28 20:44 | Hospitalist Progress Note ---
Date of Service April 28, 2021 Assessment & Plan (1) Cellulitis of left leg: Plan: 85 y/o F Hx HTN, HLD, COPD, osteoporosis. She had her L knee replaced 04/15. She presents with extensive inflammation of her L leg, extending form the surgical wound down to her ankle. She has not had fevers. Initial labs are unremarkable. Cellulitis -had a seroma aspirated from the knee on the evening of admission by orthopedic surgery that did not appear infected-was a bloody aspiration. With extensive erythema and warmth with pitting edema from the left knee all the way to the left ankle-slightly improved since admission with less erythema over the knee No evidence of periprosthetic joint infection as per orthopedic surgery Can be up and weightbearing as tolerated Remains afebrile and no leukocytosis -Continue Unasyn/Dapto -Continue to follow blood cultures, seroma aspiration culture -Follow cellulitis clinically -Can discontinue IV fluids -Follow CBC, BMP in the morning (2) Left leg swelling: Plan: Secondary to cellulitis and recent TKA Venous Doppler negative for DVT Continue to follow (3) Status post left knee replacement: Plan: As above Orthopedics following Continue aspirin 81 mg p.o. twice daily for DVT prophylaxis Pain control with Tylenol and tramadol as needed We will place PT/OT consultations (4) Hyperlipidemia: Plan: cont Zocor (5) Chronic obstructive pulmonary disease: Plan: No acute issues - inhaler provided PRN (6) Benign essential hypertension: Plan: Blood pressures are controlled - cont Norvasc (7) AAA (abdominal aortic aneurysm): Plan: Follows regularly with vascular surgery Continue aspirin, statin (8) Osteoporosis: Plan: she is taking Vit D and Prolia which she can resume in the outpt setting (9) DVT prophylaxis: Plan: Aspirin 81 mg p.o. twice daily Disposition-continued stay on medical/surgical floor. Expect at least 2 more days in the hospital for IV antibiotics PT/OT consults placed Admission and Anticipated Discharge Date Admission Date: April 27, 2021 Subjective Patient reports feeling some pain in the leg but feels the redness is improved overlying the knee since yesterday. She had fluid of a seroma aspirated by orthopedic surgery last night. She denies any diarrhea or abdominal pain. No chest pains or shortness of breath. Review of Systems Review of Systems: All systems reviewed & are unremarkable except as noted in HPI & below Physical Exam Constitutional: WD/WN, vitals as above Eyes: + anicteric sclerae Neck: trachea midline, no thyromegaly Respiratory: normal respiratory effort, lungs clear to auscultation Cardiovascular: RRR, no murmur, no edema Chest (Breasts): Chest: normal inspection of chest Gastrointestinal (Abdomen): normal bowel sounds, soft, nontender, no hepatosplenomegaly Musculoskeletal: Extremities: + extremities abnormal to inspection (Left knee with abner in place), no cyanosis and no clubbing Skin: Left knee and entire leg with erythema and 1+ pitting edema down to the ankle, warm to the touch Neurologic: moves all extremities and awake; no focal motor deficits Psychiatric: A+Ox3, euthymic affect Results & Data Results & Data ([facility]) Vital Signs (Past 12 Hours) Vital Signs Temp Pulse Resp BP Pulse Ox 04/28/21 15:29 36.7 C 74 16 129/68 94 04/28/21 09:08 36.7 C 97 H 16 133/64 97 Laboratory Results Blood cultures-no growth to date Left knee fluid aspirate-many WBCs, culture no growth to date PG Care Time/CCT Total # of Minutes Spent Total Time Spent with Patient: Total time spent is greater than 50% in coordination of care (as documented) at patient's floor/unit and/or counseling patient: Coding Level of Care Code 67388 Subseq Hosp Care Lvl 2 Diagnoses Cellulitis of left leg L03.116 Left leg swelling M79.89 Status post left knee replacement Z96.652 Hyperlipidemia E78.5 Chronic obstructive pulmonary disease J44.9 Benign essential hypertension I10 DVT prophylaxis Z29.9 AAA (abdominal aortic aneurysm) I71.4 Osteoporosis M80.00XA Encounter type: initial encounter Osteoporosis type: age-related Presence of current pathological fracture: with current pathological fracture (1) Osteoporosis Encounter type: initial encounter Osteoporosis type: age-related Presence of current pathological fracture: with current pathological fracture Qualified Co de(s): M80.00XA - Age-related osteoporosis with current pathological fracture, unspecified site, initial encounter for fracture
[2021-04-29] MEDS: AMPICILLIN/SULBACTAM SOD 1,500 MG in 0.9 % SODIUM CHLORIDE 100 ML IV SCH ×4 (03:31→20:47)
--- NOTE | 2021-04-29 06:48 | Orthopedic Progress Note ---
Date of Service April 29, 2021 Assessment & Plan (1) Cellulitis of left leg: She is currently on Unasyn and daptomycin for the cellulitis of her right leg. It seems to be improving some. I think she may need an another couple days of antibiotics. I do want to be aggressive with the IV antibiotics. I am concerned about infection around the joint replacement. So far the seroma aspirate around the right knee has not shown any growth on cultures. We will continue to follow her closely. Subjective Rachelle was seen and examined at bedside. Overall she is improving some. She still has some cellulitis down her leg but seems slightly improved. She has standard postoperative swelling around her left knee. There is no drainage from the incision. She says she has no pain in the left knee.. Review of Systems All systems reviewed & are unremarkable except as noted in HPI & below. Physical Exam On physical examination of the left knee, there is some expected postoperative swelling. There is erythema and cellulitis from the inferior aspect of the incision distally to the ankle. There is no drainage from the incision.. Results & Data Results & Data Laboratory Results . Diagnostic Findings . PG Care Time/CCT Total # of Minutes Spent Total Time Spent with Patient: Total time spent is greater than 50% in coordination of care (as documented) at patient's floor/unit and/or counseling patient: Coding Level of Care Code 52385 Post Operative Follow-Up Diagnoses Cellulitis of left leg L03.116
[2021-04-29 08:13] LABS: Basophils # (auto) 0.03 K/uL (0-0.2); Basophils % (auto) 0.6 %; Eosinophils # (auto) 0.17 K/uL (0-0.5); Eosinophils % (auto) 3.3 %; Hemoglobin 11.3 g/dL (12.0-16.0); Immature Granulocytes # (auto) 0.01 K/uL (0.00-0.02); Immature Granulocytes % (auto) 0.2 %; Lymphocytes # (auto) 0.99 K/uL (1.2-3.4); Lymphocytes % (auto) 19.1 %; Mean Corpuscular Hemoglobin 31.7 pg (25-34); Mean Corpuscular Hgb Conc 33.2 g/dL (32-36); Mean Corpuscular Volume 95.2 fL (80-100); Mean Platelet Volume 8.7 fL (7.4-10.4); Monocytes # (auto) 0.48 K/uL (0.11-0.59); Monocytes % (auto) 9.3 %; Neutrophils # (auto) 3.49 K/uL (1.4-6.5); Neutrophils % (auto) 67.5 %; Platelet Count 354 K/uL (130-400); RDW Coefficient of Variation 14.4 % (11.5-14.5); RDW Standard Deviation 49.6 fL (36.4-46.3); Red Blood Count 3.57 M/uL (4.2-5.4); White Blood Count 5.17 K/uL (4.8-10.8)
[2021-04-29 08:43] LABS: BUN Creatinine Ratio 18.8 (10-20); Calcium 8.8 mg/dl (8.5-10.1); Creatinine Clr Calc Pharmacy 61.6 ml/min; Est GFR (African American) 87.7 ml/min; Est GFR (Non-African American) 75.6 ml/min; Potassium 3.6 mmol/L (3.5-5.1)
[2021-04-29] MEDS: amLODIPine BESYLATE 5 MG TAB PO SCH (08:44)
[2021-04-29] MEDS: ASPIRIN 81 MG ECTAB PO SCH ×2 (08:44→20:47)
[2021-04-29] MEDS: CHOLECALCIFEROL 1,000 UNITS 25 MCG TAB PO SCH (08:45)
[2021-04-29] MEDS: HEPARIN SOD 5,000 UNIT/0.5 ML VIAL SQ SCH ×2 (08:46→20:47)
[2021-04-29] MEDS ORDERED: POLYETHYLENE (MIRALAX) 17 GM PACK PO PRN (09:16)
[2021-04-29] MEDS: DOCUSATE SODIUM 100 MG CAP PO SCH ×2 (09:23→20:47)
--- NOTE | 2021-04-29 09:54 | Hospitalist Progress Note ---
Date of Service April 29, 2021 Assessment & Plan (1) Cellulitis of left leg: Plan: 85 y/o F Hx HTN, HLD, COPD, osteoporosis. She had her L knee replaced 04/15. She presents with extensive inflammation of her L leg, extending form the surgical wound down to her ankle. She has not had fevers. Initial labs are unremarkable. - Seroma aspirated on evening of admission - blood aspiration but Cx without growth - Initially presented with extensive erythema, warmth, and pitting edema from knee to ankle - improving - No evidence of periprosthetic joint infx per ortho; WBAT - Continue Unasyn/Dapto (2) Left leg swelling: Plan: - Secondary to cellulities and recent TKA - Venous doppler negative for DVT - Continue to follow clinically (3) Status post left knee replacement: Plan: - As above - ASA 81 mg BID for DVT prophylaxis - Continue pain regimen - Orthopedics following - plan on a couple additional days of IV Abx - PT/OT/ Case management - plan to return home with home health (4) Hyperlipidemia: Plan: - Continue Simvastatin 20 mg HS (5) Chronic obstructive pulmonary disease: Plan: - STABLE/No acute issues - Inhaler provided PRN (6) Benign essential hypertension: Plan: - STABLE - Continue Norvasc 10 mg daily (7) AAA (abdominal aortic aneurysm): Plan: - Follows regularly with vascular surgery - Continue ASA, statin (8) Osteoporosis: Plan: - Continue Vit D and Prolia as outpatient (9) DVT prophylaxis: Plan: - Aspirin 81 mg p.o. twice daily Disposition - Continued stay on medical/surgical floor. Expect at least 2 more days in the hospital for IV antibiotics - Plan on home with continue home health services Admission and Anticipated Discharge Date Admission Date: April 27, 2021 Subjective Reports doing well today. Reports warmth of the L knee is lessened and her mobility is improving. She denies fever/chills. Tolerating diet without issue. Did ask for a stool softener. Review of Systems Review of Systems: REVIEW OF SYSTEMS General/Constitutional: Denies fever/chills ENT: Denies visual changes, nasal drainage, sore throat Cardiovascular: Denies chest pain, palpitations Respiratory: Denies cough, sputum, SOB, wheezing GI: Denies nausea, vomiting, abdominal pain, constipation, diarrhea : Denies dysuria Musculoskeletal: + improving edema of LLE and reducing erythema Neurologic: Denies dizziness/lightheadedness, numbness/tingling Hematologic/Lymphatic: Denies bleeding/clotting abnormalities Skin: Denies rash Physical Exam Physical Exam: PHYSICAL EXAM General Appearance: WDWN in NAD who is A&O x 3 HEENT: Head is normocephalic/atraumatic; Hearing grossly intact; Mucous membranes moist; Pharynx negative for exudate/lesions Neck: Supple; Trachea midline; Neg JVD Heart: RRR with no M/G/R Lungs: CTA in all lung vasquez bilaterally; Respirations unlabored; Neg accessory muscle use Abdomen: Soft, non-tender, non-distended; Positive BS x 4 quadrants; Neg organomegaly Extremities: Capillary refill < 2 seconds; Neg cyanosis; chronic venous changes of b/l lower extremities with L > R; abner to L knee incision with mid warmth around the knee only Neurological: Speech clear; Gross motor/sensory function intact; Neg focal neurologic deficits Psychiatric: Appropriate mood/affect Skin: Normal Color; Warm/Dry; Neg rashes, ecchymosis, lacerations/ulcerations Results & Data Results & Data ([facility]) Vital Signs (Past 12 Hours) Vital Signs Temp Pulse Resp BP Pulse Ox 04/29/21 07:22 36.7 C 65 16 137/76 96 04/28/21 22:10 36.6 C 70 16 131/74 95 PG Care Time/CCT Total # of Minutes Spent Total Time Spent with Patient: Total time spent is greater than 50% in coordination of care (as documented) at patient's floor/unit and/or counseling patient: Coding Level of Care Code 81937 Subseq Hosp Care Lvl 2 Diagnoses Cellulitis of left leg L03.116 Left leg swelling M79.89 Status post left knee replacement Z96.652 Hyperlipidemia E78.5 Chronic obstructive pulmonary disease J44.9 Benign essential hypertension I10 AAA (abdominal aortic aneurysm) I71.4 Osteoporosis M80.00XA Osteoporosis type: age-related Presence of current pathological fracture: with current pathological fracture Encounter type: initial encounter DVT prophylaxis Z29.9 (1) Osteoporosis Osteoporosis type: age-related Presence of current pathological fracture: with current pathological fracture Encounter type: initial encounter Qualified Code(s): M80.00XA - Age-related osteoporosis with current pathological fracture, unspecified site, initial encounter for fracture
[2021-04-29] MEDS: DAPTOmycin 350 MG in SYRINGE 0 ML IV SCH (16:10)
[2021-04-29] MEDS: traMADol HCL 50 MG TABLET PO PRN (23:05)
[2021-04-30] MEDS: AMPICILLIN/SULBACTAM SOD 1,500 MG in 0.9 % SODIUM CHLORIDE 100 ML IV SCH ×4 (04:03→21:03)
[2021-04-30] MEDS: DOCUSATE SODIUM 100 MG CAP PO SCH ×2 (08:08→21:02)
[2021-04-30] MEDS: CHOLECALCIFEROL 1,000 UNITS 25 MCG TAB PO SCH (08:08)
[2021-04-30] MEDS: amLODIPine BESYLATE 5 MG TAB PO SCH (08:08)
[2021-04-30] MEDS: HEPARIN SOD 5,000 UNIT/0.5 ML VIAL SQ SCH ×2 (08:08→21:02)
[2021-04-30] MEDS: ASPIRIN 81 MG ECTAB PO SCH ×2 (08:08→21:02)
--- NOTE | 2021-04-30 15:49 | Orthopedic Progress Note ---
Date of Service April 30, 2021 Assessment & Plan (1) Cellulitis of left leg: Overall she seems to be improving. The seroma aspirate from around her left knee has not grown any organisms to date. I think it safe to discharge her to home tomorrow on oral antibiotics. She has an appointment to follow-up with orthopedics next week for staple removal. Scot Rachelle was seen and examined at bedside this morning. Overall she is doing f airly well. The cellulitis is improving. She has been ambulating without pain. She has no complaints.. Review of Systems All systems reviewed & are unremarkable except as noted in HPI & below. Physical Exam On physical examination of the left knee, there is swelling and erythema consistent with 2 weeks after knee replacement surgery. She has decent motion from 0 to 90 degrees. She has no instability. The cellulitis of her left leg is improving.. Results & Data Results & Data Laboratory Results . Diagnostic Findings . PG Care Time/CCT Total # of Minutes Spent Total Time Spent with Patient: Total time spent is greater than 50% in co ordination of care (as documented) at patient's floor/unit and/or counseling patient: Coding Level of Care Code 87231 Post Operative Follow-Up Diagnoses Cellulitis of left leg L03.116
[2021-04-30] MEDS: DAPTOmycin 350 MG in SYRINGE 0 ML IV SCH (16:14)
--- NOTE | 2021-04-30 20:17 | Hospitalist Progress Note ---
Date of Service April 30, 2021 Assessment & Plan (1) Cellulitis of left leg: Plan: 85 y/o F Hx HTN, HLD, COPD, osteoporosis. She had her L knee replaced 04/15. She presents with extensive inflammation of her L leg, extending form the surgical wound down to her ankle. She has not had fevers. Initial labs are unremarkable. - Seroma aspirated on evening of admission - blood aspiration but Cx without growth - Initially presented with extensive erythema, warmth, and pitting edema from knee to ankle - improving - No evidence of periprosthetic joint infx per ortho; WBAT - Continue Unasyn/Dapto - plan for oral conversion tomorrow and likely D/C home (2) Left leg swelling: Plan: - Secondary to cellulities and recent TKA - Venous doppler negative for DVT - Continue to follow clinically (3) Status post left knee replacement: Plan: - As above - ASA 81 mg BID for DVT prophylaxis - Continue pain regimen - Orthopedics following - discussed with Dr. Jean today - PT/OT/ Case management - plan to return home with home health (4) Hyperlipidemia: Plan: - Simvastatin 20 mg HS on hold due to Dapto use (5) Chronic obstructive pulmonary disease: Plan: - STABLE/No acute issues - Inhaler provided PRN (6) Benign essential hypertension: Plan: - STABLE - Continue Norvasc 10 mg daily (7) AAA (abdominal aortic aneurysm): Plan: - Follows regularly with vascular surgery - Continue ASA, statin (8) Osteoporosis: Plan: - Continue Vit D and Prolia as outpatient (9) DVT prophylaxis: Plan: - Aspirin 81 mg p.o. twice daily Disposition - Continued stay on medical/surgical floor. Plan for oral conversion tomorrow and likely D/C home - Plan on home with continue home health services Admission and Anticipated Discharge Date Admission Date: April 27, 2021 Subjective Pt reports doing well today. Some warmth and swelling of the knee but hasnt required any pain medication. Ambulating. Cx remain with no growth Review of Systems Review of Systems: REVIEW OF SYSTEMS General/Constitutional: Denies fever/chills ENT: Denies visual changes, nasal drainage, sore throat Cardiovascular: Denies chest pain, palpitations Respiratory: Denies cough, sputum, SOB, wheezing GI: Denies nausea, vomiting, abdominal pain, constipation, diarrhea : Denies dysuria Musculoskeletal: + improving edema of LLE and reducing erythema and warmth; swelling predominantly of L knee Neurologic: Denies dizziness/lightheadedness, numbness/tingling Hematologic/Lymphatic: Denies bleeding/clotting abnormalities Skin: Denies rash Physical Exam Physical Exam: PHYSICAL EXAM General Appearance: WDWN in NAD who is A&O x 3 HEENT: Head is normocephalic/atraumatic; Hearing grossly intact; Mucous membranes moist Neck: Supple; Trachea midline; Neg JVD Heart: RRR with no M/G/R Lungs: CTA in all lung vasquez bilaterally; Respirations unlabored; Neg accessory muscle use Abdomen: Soft, non-tender, non-distended; Positive BS x 4 quadrants; Neg organomegaly Extremities: Capillary refill < 2 seconds; Neg cyanosis; chronic venous changes of b/l lower extremities with L > R; abner to L knee incision with mild warmth around the knee only Neurological: Speech clear; Gross motor/sensory function intact; Neg focal neurologic deficits Psychiatric: Appropriate mood/affect Skin: Normal Color; Warm/Dry; Neg rashes, ecchymosis, lacerations/ulcerations Results & Data Results & Data ([facility]) Vital Signs (Past 12 Hours) Vital Signs Temp Pulse Resp BP Pulse Ox 04/30/21 15:28 36.4 C L 64 16 122/70 97 PG Care Time/CCT Total # of Minutes Spent Total Time Spent with Patient: Total time spent is greater than 50% in c oordination of care (as documented) at patient's floor/unit and/or counseling patient: Coding Level of Care Code 38815 Subseq Hosp Care Lvl 2 Diagnoses Cellulitis of left leg L03.116 Left leg swelling M79.89 Status post left knee replacement Z96.652 Hyperlipidemia E78.5 Chronic obstructive pulmonary disease J44.9 Benign essential hypertension I10 AAA (abdominal aortic aneurysm) I71.4 Osteoporosis M80.00XA Osteoporosis type: age-related Presence of current pathological fracture: with current pathological fracture Encounter type: initial encounter DVT prophylaxis Z29.9 (1) Osteoporosis Osteoporosis type: age-related Presence of current pathological fracture: with current pathological fracture Encounter type: initial encounter Qualified Code(s): M80.00XA - Age-related osteoporosis with current pathological fracture, unspecified site, initial encounter for fracture
[2021-04-30] MEDS: METHENAMINE HIPPURATE 1 GM TAB PO SCH (21:01)
[2021-04-30] MEDS: traMADol HCL 50 MG TABLET PO PRN (21:12)
[2021-05-01] MEDS: AMPICILLIN/SULBACTAM SOD 1,500 MG in 0.9 % SODIUM CHLORIDE 100 ML IV SCH ×2 (05:09→09:36)
[2021-05-01] MEDS: ASPIRIN 81 MG ECTAB PO SCH (09:36)
[2021-05-01] MEDS: CHOLECALCIFEROL 1,000 UNITS 25 MCG TAB PO SCH (09:36)
[2021-05-01] MEDS: DOCUSATE SODIUM 100 MG CAP PO SCH (09:36)
[2021-05-01] MEDS: amLODIPine BESYLATE 5 MG TAB PO SCH (09:36)
[2021-05-01] MEDS: HEPARIN SOD 5,000 UNIT/0.5 ML VIAL SQ SCH (09:37)
[2021-05-01] MEDS ORDERED: DOXYCYCLINE HYCLATE 100 MG CAP PO SCH (11:45)
[2021-05-01] MEDS ORDERED: cephALEXin 500 MG CAP PO SCH (13:00)
--- NOTE | 2021-05-01 19:56 | Discharge Summary ---
Date of Service May 01, 2021 Admission HPI Per Admitting Provider 85 y/o F Hx HTN, HLD, COPD, osteoporosis. She had her L knee replaced 04/15. She presents with extensive inflammation of her L leg, extending form the surgical wound down to her ankle. She has not had fevers. Initial labs are unremarkable. PMH: 1) HTN 2) HLD 3) AAA 4) Osteoporosis 5) COPD 6) Melanoma in situ Surgical: 1) Hysterectomy 2) Tonsillectomy 3) Appendectomy 4) L TKA 04/15/21 Social: Quit smoking 2015. Does not drnk alcohol. Family: Noncontributory due to pt's age Principal Diagnosis L Knee and Lower Extremity Cellulitis Discharge Exam PHYSICAL EXAM General Appearance: WDWN in NAD who is A&O x 3 HEENT: Head is normocephalic/atraumatic; EOMI; PERRLA; Hearing grossly intact; Mucous membranes moist Neck: Supple; Trachea midline; Neg JVD Heart: RRR with no M/G/R Lungs: CTA in all lung vasquez bilaterally; Respirations unlabored; Neg accessory muscle use Abdomen: Soft, non-tender, non-distended; Positive BS x 4 quadrants; Neg organomegaly Extremities: Chronic venous stasis changes on bilateral lower extremities L does appear worse than R; Increased swelling of the L knee with abner well- approximated on the anterior aspect of the knee; Mildly warm to touch to knee only but improved from previous examinations Neurological: Speech clear; Gross motor/sensory function intact; Neg focal neurologic deficits Psychiatric: Appropriate mood/affect Skin: Normal Color; Warm/Dry other than mentioned above Discharge Data Allergies Allergy/AdvReac Type Severity Reaction Status Date / Time Sulfa (Sulfonamide AdvReac Intermediate Severe Verified 04/27/21 15:24 Antibiotics) vomiting Consultations 04/27/21 18:14 ED Decision to Admit Stat 05/01/21 09:11 Consult Orthopedic Surgery Routine Ordered Studies Knee X-Ray 04/27/21 15:32 LEFT KNEE 3 VIEWS CLINICAL HISTORY: Left knee swelling. Recent surgery. FINDINGS: AP, crosstable lateral, and sunrise views of the left knee are compared to study dated 04/15/2021. The skeletal structures are osteopenic. No fracture is identified. A left knee arthroplasty is in near-anatomic alignment. There has been undersurface remodeling of the patella. No periprosthetic lucency is identified. There is a large joint effusion. Soft tissue edema is present around the knee and skin clips are in place. There is advanced atherosclerotic calcification of the popliteal artery. IMPRESSION: 1. Large joint effusion and soft tissue swelling with no acute bony abnormality identified. 2. A left knee arthroplasty is in near-anatomic alignment. Electronically signed by: José Sarmiento M.D. 04/27/2021 4:33 PM Venous Doppler Study 04/27/21 15:32 ULTRASOUND LEFT LOWER EXTREMITY VENOUS CLINICAL HISTORY: Left leg swelling. Recent surgery. COMPARISON STUDY: Left lower extremity venous ultrasound dated 03/04/2018. TECHNIQUE: Real-time, grayscale, and color Doppler sonography of the deep veins of the left lower extremity was performed from the inguinal crease to the calf. Compression and augmentation were utilized. FINDINGS: There is no sonographic evidence of deep venous thrombosis identified in the left lower extremity. The common femoral, superficial femoral, and popliteal veins are patent and normally compressible. The greater saphenous vein and the profunda femoris vein at the junction with the common femoral vein are clear. The visualized calf veins are patent. Soft tissue edema is seen in the calf. IMPRESSION: There is no sonographic evidence of deep venous thrombosis identified in the left lower extremity. ACT 112: Negative or not required by law. Electronically signed by: José Sarmiento M.D. 04/27/2021 5:17 PM Hospital Course (1) Cellulitis of left le85 y/o F Hx HTN, HLD, COPD, osteoporosis. She had her L knee replaced 04/15. She presents with extensive inflammation of her L leg, extending form the surgical wound down to her ankle. She has not had fevers. Initial labs are unremarkable. - Seroma aspirated on evening of admission - blood aspiration but Cx without growth - Initially presented with extensive erythema, warmth, and pitting edema from knee to ankle - improving and now swelling is typical amount given that she recently had her TKA - No evidence of periprosthetic joint infx per ortho; WBAT - Utilized Unasyn/Dapto during entire hospital stay. She is having no pain in the knee and able to bend knee without difficulty -- Will complete a 10 day total course of antibiotics with Cephalexin 500 mg QID and Doxycyline 100 mg BID to cover predominantly staph and strept; Doxy does have some MRSA coverage -- Patient overall lower risk for MRSA except in the setting of having a recent surgery - To have follow-up with Dr. Jean next week for staple removal and can assess knee (2) Left leg swelling: - Secondary to cellulities and recent TKA - Venous doppler negative for DVT - Continue to follow clinically (3) Status post left knee replacement: - As above - ASA 81 mg BID for DVT prophylaxis - Continue pain regimen - PT/OT/ Case management - plan to return home with home health (4) Hyperlipidemia: - Simvastatin 20 mg HS on hold due to Dapto use but can resume on D/C (5) Chronic obstructive pulmonary disease: - STABLE/No acute issues - Inhaler provided PRN (6) Benign essential hypertension: - STABLE - Continue Norvasc 10 mg daily (7) AAA (abdominal aortic aneurysm): - Follows regularly with vascular surgery - Continue ASA, statin (8) Osteoporosis: - Continue Vit D and Prolia as outpatient (9) DVT prophylaxis: - Aspirin 81 mg p.o. twice daily Disposition Follow-up with Dr. Jean next week Total Time Total Time Spent Total Time Spent (In Minutes): Greater than 30 minutes Discharge Plan Discharge Items Patient Disposition: Home - Self-Care Reason For Visit: CELLULITIS Discharge Diagnosis: Cellulitis Condition on Discharge: Good Activity: Resume your previous activity Activity Comment: Gradually increasing as tolerated; use walker if needed Non-emergency contact: Primary Care Provider and Surgeon Call non-emergency contact if: you have any medication questions and your temperature is above 101 Follow-up/Referrals: Pavithra Segovia MD [Primary Care Provider] - (Follow-up in 7-10 days) Gen Jean DO [Physician] - (Please call and follow-up next week for staple removal and wound check) Diet: Heart Healthy Addtl Attending Provider Instructions: Skin Infection: - You had a pocket of fluid removed called a seroma. This was tested and did not grow any bacteria which is great. Sometime fluid can accumulate after surgeries due to inflammation. - It does not appear that an infection got into the knee joint but we always want to be very mindful to prevent this. - We treated you with IV antibiotics in the hospital and will continue a course of oral medications to complete treatment. - The redness in the skin of the leg is looking better and the swelling is better. Be mindful that the swelling may take a while to go down due to having a new surgery. And as you walk a bit more it could swell up more. - Thankfully you have good movement with the knee and pain is doing well. - There is no evidence of a blood clot in the leg as well which is good - You will continue taking a baby aspirin 81 mg twice a day until you follow-up with Dr. Jean - We are going to treat with two different types of antibiotics to make sure we cover all the normal types of bacteria that can affect the skin -- Take Cephalexin 500 mg four times a day until 06 May - start the dose today -- Take Doxycycline 100 mg twice a day until 06 May and start the dose today - Dr. Jean would like to see you next week to follow-up and handle the abner. Please call their office Pending Studies at Discharge: No Stand-Alone Forms: [facility] [place], Smoking Cessation Medications and DC Order Prescriptions: New cephalexin 500 mg tablet 500 mg PO QID Qty: 24 RF: 0 doxycycline hyclate 100 mg capsule 100 mg PO BID Qty: 12 RF: 0 Continued amlodipine 10 mg tablet 10 mg PO QAM Qty: 90 RF: 3 simvastatin 20 mg tablet 20 mg PO HS Qty: 90 RF: 3 Prolia 60 mg/mL syringe 60 mg subcut UD Qty: 1 RF: 1 methenamine hippurate 1 gram tablet 1 g PO QPM RF: 0 cholecalciferol (vitamin D3) [Vitamin D3] 125 mcg (5,000 unit) tablet 15,000 unit PO QAM RF: 0 multivitamin Tablet 1 tab PO QAM RF: 0 albuterol sulfate [ProAir HFA] 90 mcg/actuation HFA aerosol inhaler 2 puffs INH QID PRN (Reason: Shortness Of Breath) RF: 0 aspirin 81 mg Tablet,Delayed Release (Dr/Ec) 81 mg PO BID 42 Days Qty: 84 RF: 0 tramadol 50 mg tablet 50 mg PO Q6H PRN (Reason: pain) Qty: 30 RF: 0 Discharge Orders: Discharge Order (Routine); Ordered 05/01/21 Ordered By: Donna Jerez Admission Data Admit Date/Time: 04/27/21 18:27 Attending Provider: Umair Perez Admit Provider: Keith Fatima Primary Care Provider: Pavithra Segovia Other Providers: Keith Fatima ; Simi,Home Health ; Gen Jean Other Interventions: Discharge Summary Assessment (RN) Last Done: 05/01/21 12:05 Supervising Physician Co-Signing Physician Notes Attending note: patient seen and examined with Donna Jerez PA-C. I agree with her discharge summary. I personally reviewed the labs and imaging findings. patient doing much better, skin clearing up, no fever, eating well - Cellulitis: change to Keflex and Doxycycline, 5 more days for 10 days total - s/p TKA: follow up with Dr. Jean next week Coding Level of Care Code D/C DAY MANAGEMENT >30 MINS Diagnoses Cellulitis of left leg L03.116 Left leg swelling M79.89 Status post left knee replacement Z96.652 Hyperlipidemia E78.5 Chronic obstructive pulmonary disease J44.9 Benign essential hypertension I10 AAA (abdominal aortic aneurysm) I71.4 Osteoporosis M80.00XA Encounter type: initial encounter Osteoporosis type: age-related Presence of current pathological fracture: with current pathological fracture DVT prophylaxis Z29.9 Home Health Attestation I certify that this patient is under my care and that I, or a physicians medical support assistant working with me, had a face to-face encounter that meets the home health [id number] encounter requirements with this patient. The encounter with the patient was in whole, or in part, for the following medical condition, which is the primary reason for home health care (list medical condition): I certify that, based on my findings, the following services are medically necessary home health services: My clinical findings support the need for the above services because: Further, I certify that my clinical findings support that this patient is homebound (i.e. absences from home require considerable and taxing effort and are for medical reasons or church services or infrequently or of short duration when for other reasons) because: Certification for Home Health Services: Based on the above findings, I certify that this patient is confined to the home and needs intermittent jail care, physical therapy and/or speech therapy or continues to need occupational therapy. The patient is under my care, and I have initiated the establishment of the plan of care. This patient will be followed by a physician who will periodically review the plan of care.
--- NOTE | 2021-06-04 06:52 | Coding Query ---
CODING QUERY To promote full compliance with coding requirements relating to patient care, provider participation is requested in all cases of undercutter uncertainty. Please assist us with the question(s) below: Coding Question(s): Prepatellar hematoma, status post a left total knee replacement is documented. Later documentation states Seroma being aspirated. Please clarify below: ( ) Seroma is a complication of the Total Knee Replacement ( ) Seroma is not a complication of the Total Knee Replacement (x ) Seroma is an expected outcome of the Total Knee Replacement ( ) Other Please Explain: Thank you Josemanuel Gregory Principal Diagnosis: "that condition established after study, to be chiefly responsible for occasioning the admission of the patient to the hospital for care." Co-Existing Principal Diagnosis: "when two or more diagnoses equally meet the criteria for principal diagnosis as determined by the circumstances of admission, diagnostic work up, and/or therapy provided, and the Alphabetic Index, Tabular List, or another coding guideline does not provide sequencing direction, any one of the diagnoses may be sequenced first." "When the physician has documented what appears to be a current diagnosis in the body of the record, but has not included the diagnosis in the final diagnostic statement, the physician should be asked whether the diagnosis should be added." (Source Coding [facility] 2 QTR90. p3-4) REMI
== END 2021-05-01 12:30 | disposition home or self-care (01) | DRG 603 ==
LOC: ED 15:01 → SUATTDRO 18:27 → 3N 18:27 → 3W 04-29 08:06

== ENCOUNTER 2022-05-07 06:02 | Inpatient (IN) ==
--- NOTE | 2022-04-25 09:34 | PAT Medication Instructions ---
Medication Instructions Date of Service April 25, 2022 Home Medications Medication Instructions Recorded denosumab 60 mg/mL subcutaneous 60 mg subcut UD #1 mL 04/08/21 syringe (Prolia) amlodipine 10 mg tablet 10 mg PO QAM #90 tabs 12/02/21 methenamine hippurate 1 gram tablet 1 g PO QPM #90 tabs 01/20/22 simvastatin 20 mg tablet 20 mg PO HS #90 tabs 01/21/22 albuterol sulfate 90 mcg/actuation aerosol inhaler (ProAir HFA) 2 puffs inhalat ion QID PRN Shortness Of Breath multivitamin 1 tab PO QAM denosumab 60 mg/mL subcutaneous syringe (Prolia) 60 mg subcut UD cholecalciferol (vitamin D3) 125 mcg (5,000 unit) tablet (Vitamin D3) 10,000 unit PO QAM amlodipine 10 mg tablet 10 mg PO QAM methenamine hippurate 1 gram tablet 1 g PO QPM simvastatin 20 mg tablet 20 mg PO HS Continue as directed denosumab 60 mg/mL subcutaneous syringe (Prolia) 60 mg subcut UD DO NOT take the morning of surgery multivitamin 1 tab PO QAM cholecalciferol (vitamin D3) 125 mcg (5,000 unit) tablet (Vitamin D3) 10,000 unit PO QAM Take morning of surgery With a small sip of water, OTHERWISE NOTHING TO EAT OR DRINK AFTER MIDNIGHT: albuterol sulfate 90 mcg/actuation aerosol inhaler (ProAir HFA) 2 puffs inhalation QID PRN Shortness Of Breath (use if needed; please bring rescue inhaler with you to hospital day of surgery if possible) amlodipine 10 mg tablet 10 mg PO QAM Take evening before surgery albuterol sulfate 90 mcg/actuation aerosol inhaler (ProAir HFA) 2 puffs inhalation QID PRN Shortness Of Breath (if needed) methenamine hippurate 1 gram tablet 1 g PO QPM simvastatin 20 mg tablet 20 mg PO HS Other Notes If you have any questions please call us at [phone] or [phone] or [phone] or [phone]
--- NOTE | 2022-05-02 08:55 | Anesthesiology Consultation ---
Date of Service May 02, 2022 Assessment & Plan (1) Encounter for pre-operative examination: - COVID screening: Per assessment on 05/02: No known COVID-19 positive contacts or current COVID-19 related symptoms. Travel screen negative. Patient vaccinated. Per pt, surgeon requested preop Covid test be done at [facility] today- awaiting results. - S/P Left TKA (04/15/21): SAB at L4/5 x1 attempt + PNB at [facility]. No issues noted per post-op anesthesia progress note. - PCP office visit (04/08/22): "Pt is presenting for a possible UTI. She states that for the last few days she's had increased frequency, hesitancy, and lower abd pressure.. when she initially called last week, on Thu, she was unable to make it here to provide a sample, and I didn't want the whole weekend to go by so I sent in cipro.. she was told to forget about providing a sample since she's been on cipro for 3 days, but she came in because the above symptoms persisted.. perhaps cipro not on sensitivity for whatever organism she has (hence the need for UCx prior to treatment, but nevertheless, will change to keflex and try a culture." > Per subsequent PAT visit 05/02, UTI symptoms resolved per pt. Chart Review Chart Review: Acceptable Risk for Surgery and Patient seen in Pre Admission Testing Teaching & Discussion Pre-Anesthesia Teaching/Discussion Notes: Instructed NPO after midnight before surgery,except medications with 15 cc of water. Medication instructions provided according to the [facility] guidelines. History Surgery Operation Date: 05/07/22 07:30 Proposed Procedures p Percutaneous Endovascular Repair of Abdominal Aortic Aneurysm - Esdras Carlson MD Height/Weight Height: 5 ft 7 in Weight: 77.6 kg Allergies Allergy/AdvReac Type Severity Reaction Status Date / Time Sulfa (Sulfonamide AdvReac Intermediate Severe Verified 04/24/22 10:23 Antibiotics) vomiting Medications Home Medications Medication Instructions Recorded Confirmed Last Taken albuterol sulfate 90 mcg/actuation 2 puffs inhalation QID PRN 03/15/20 04/24/22 Unknown aerosol inhaler (ProAir HFA) Shortness Of Breath multivitamin 1 tab PO QAM 03/15/20 04/24/22 04/27/21 cholecalciferol (vitamin D3) 125 10,000 unit PO QAM 07/12/21 04/24/22 Unknown mcg (5,000 unit) tablet (Vitamin D3) amlodipine 10 mg tablet 10 mg PO QAM #90 tabs 12/02/21 04/24/22 Unknown methenamine hippurate 1 gram tablet 1 g PO QPM #90 tabs 01/20/22 04/24/22 Unknown simvastatin 20 mg tablet 20 mg PO HS #90 tabs 01/21/22 04/24/22 Unknown denosumab 60 mg/mL subcutaneous 60 mg subcut UD #1 mL 04/30/22 Unknown syringe (Prolia) Past Medical History Medical History (Updated 05/02/22 @ 09:11 by Enedina Colindres) AAA (abdominal aortic aneurysm) AAA measuring 45 mm in diameter just above the bifurcation, a thrombus is noted in the aneurysm sac without significant stenosis of the luminal diameter per 04/24/22 CTA Abd/Pelvis Chronic back pain Chronic obstructive pulmonary disease Stable Deafness in left ear H/O gastroesophageal reflux (GERD) History of multiple pulmonary nodules History of skin cancer Hyperlipidemia Hypertension 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 Osteoarthritis Osteoporosis Presence of pessary Current Exercise / Class Metabolic Activity III < 4 Walking/Shop/Light housework Past Family History Family History Mother Colorectal cancer Hearing loss Cancer Denies family history of Ovarian cancer Prostate cancer No family history of adverse response to anesthesia No family history of bleeding disorder Heart disease Allergies Myocardial infarction Breast cancer Hypertension Asthma Past Surgical History Surgical History Hip fracture due to osteoporosis s/p surgical intervention History of appendectomy History of bladder surgery History of cataract surgery R/L History of colonoscopy History of hysterectomy LINDSEY with BSO History of open reduction and internal fixation (ORIF) procedure Left anterior bipolar hip (03/16/20): SAB at L3/L4 (x2 attempts) at [facility] History of tonsillectomy History of total knee arthroplasty Left TKA (04/15/21): SAB at L4/5 x1 attempt + PNB at [facility]. No issues noted per post-op anesthesia progress note. Past Anesthesia History No Hx of Anesthesia Complications and No Family Hx of Anesthesia Complications History of PONV No Hx of PONV and No Hx of Motion Sickness Social History Smoking Status: Former smoker tobacco type: cigarettes Do You Dip or Chew Tobacco: No Smoking End Date: Quit 10 years ago Hx Alcohol Use: No Hx Substance Use: No substance use type: does not use Review of Systems Hx palpitations- no recent issues. Patient denies chest pain, shortness of breath, dyspnea on exertion, fever, chills, cough, wheezing. Physical Exam Vital Signs VITALS BP 138/55 P 61 TEMP 98.1 SP02 96%RA RESP 16 PHYSICAL Full cervical extension range of motion. Full TMJ range of motion. TMD 2.5 finger breaths (small chin) Mallampati Score 3 Dentition: intact Lungs: clear throughout to auscultation Cardiac: regular rate and rhythm, no murmurs noted Spine: normal Carotid arteries: negative bruit Extremities: no edema Lab Results Anesthesia Preop Results Results Anesthesia Widget: WBC 4.70 K/ul (4.8-10.8) L 05/02/22 Hgb 14.0 g/dl (12.0-16.0) 05/02/22 Hct 41.3 % (34.1-44.9) 05/02/22 Plt 226 K/uL (130-400) 05/02/22 Na 142 mmol/L (136-145) 05/02/22 K 4.7 mmol/L (3.5-5.1) 05/02/22 Cl 105 mmol/L (98-107) 05/02/22 CO2 28 mmol/L (21-32) 05/02/22 BUN 18 mg/dl (6-23) 05/02/22 Creat 0.96 mg/dl (0.6-1.2) 05/02/22 Glucose Level 90 mg/dl (70-99(Fasting)) 05/02/22 PT 10.6 Seconds (9.0-12.0) 05/02/22 PTT 25.2 Seconds (21.0-31.0) 05/02/22 INR 1.0 (0.9-1.1) 05/02/22 Blood Type O Positive 05/02/22 Antibody Screen NEGATIVE 05/02/22 Testing Laboratory Results 04/08/22 URINE CULTURE probable skin jazlyn Electrocardiogram Date: 05/02/22 SB with first degree AVB at 53bpm. NS STA. No significant change compared to 03/26/2021 per foundry worker review. Chest X-Ray Date: 05/02/22 FINDINGS: PA and lateral chest radiographs are compared to study dated 03/26/2021. The heart is enlarged noting atherosclerotic calcification of the thoracic aorta. The pulmonary vasculature is noncongested. Chronic interstitial thickening is similar to previous. There is mild elevation of the right hemidiaphragm with bibasilar scarring/atelectasis. The lungs and pleural spaces are otherwise clear. There is no pneumothorax. The skeletal structures are osteopenic. The bony thorax appears intact. IMPRESSION: Cardiomegaly with no active disease in the chest. Other Testing Abd/Pelvis CTA (04/24/22) Interval minimal enlargement of the aneurysm sac, previously measured 40 mm, now measures 45 mm. Mural thrombus is seen without significant stenosis of the luminal diameter. The great vessels are patent. 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 Multiple pulmonary nodules in the right lower lobe have slowly enlarged from 2017, previously measured 5 and 6 mm, now measure 7 and [address] chest can be performed if not previously evaluated. COVID-19 Risk Screen Screening Information COVID-19 Screen Date: 05/02/22 Exposure 21 Days Family/Household +COVID Last 21 Days: No Exposure 10 Days Any COVID Exposure Last 10 Days: No Symptoms Last 10 Days Experienced COVID Sx Last 10 Days: No + COVID 0-90 Days COVID + in Last 0-90 Days: No
--- NOTE | 2022-05-06 16:31 | History & Physical Report ---
Date of Service May 06, 2022 History of Present Illness Primary Care Provider: Pavithra Segovia MD Chief Complaint Room 5-1 year f/u no new medical problems. no claudication or pain, no numbness, she walks regularly. Had MOHs left leg. Healed well. bp about 120-130 at home History of Present Illness I the pleasure of seeing [place] today for follow-up. As you know she is a 86-year-old female who we have been following for abdominal aortic aneurysm. She has no complaints. She is ambulating without any claudication symptoms. She has no complaints of back or abdominal discomfort. She has no complaints of cerebrovascular insufficiency. Denies any discoloration or ulcerations of her lower extremities. Review of Systems 10 systems reviewed. Other than the HPI no positive findings. Physical Exam Vitals & Measurements HR: 58 (Monitored) BP: 118/72 SpO2: 97% WT: 77 kg Input and Output - Last 24 hours (Last 8 hours) No I/O Data Found: On exam she is awake alert and oriented x3. Her blood pressure is 118/72 on the right 112/68 on the left. Her radials carotids are +2 bilaterally. No carotid bruits. Her heart had a regular rate and rhythm. Lungs are clear to auscultation. Abdominal exam is benign. There is mild dilatation of the aorta in the midepigastrium. There is no abdominal tenderness. Femorals and pedal pulses are all +2 bilaterally. Neurologic exam is grossly intact. Duplex of abdominal aorta showed a 5.1 cm abdominal aortic aneurysm. This is increased from 4.6 her last visit last year. Assessment/Plan AAA (abdominal aortic aneurysm) At this point being that her aneurysm is increased over 5 cm we recommend that we go ahead and repair this aneurysm. We will obtain a CT angiogram and an echo for evaluation prior to going ahead with this procedure. Most likely she will be an endovascular repair of the abdominal aortic aneurysm. Thank you very much for letting us participate in the care of this patient. We will keep you informed as to her follow-up. Sincerely, Curtis Carlson MD Ordered: Echo TransTHORacic TTE Complete Problem List/Past Medical History Ongoing AAA (abdominal aortic aneurysm) Bone History of malignant melanoma of skin History of squamous cell carcinoma of skin Hyperlipidemia Joint LBP (low back pain) Sacroiliac joint inflamed Historical No qualifying data Procedure/Surgical History Shave biopsy and cauterization of skin (02/13/2022) Electrodesiccation with curettage (12/30/2021) Mohs surgery (09/04/2021) Shave biopsy of skin (08/20/2021) Hysterectomy Tonsillectomy planned Medications Inpatient No active inpatient medications Home amLODIPine 10 mg oral tablet, 10 mg= 1 tab, PO, Daily Caltrate, 1 tab, PO, Daily Keflex 500 mg oral capsule, See Instructions methenamine hippurate 1 g oral tablet, 1 g= 1 tab, PO, qhs Multiple Vitamins oral tablet, 1 tab, PO, Daily Prolia 60 mg/mL subcutaneous solution Vitamin D3, 5000 Int_Unit, PO, Daily Voltaren 1% topical gel, 4 g, topical, qid, 3 refills Zocor 20 mg oral tablet, 20 mg= 1 tab, PO, qhs Allergies sulfADIAZINE (Vomiting) Social History Smoking Status Never smoked cigarettes Tobacco Former smoker, Stopped age 66 Years. Family History Cancer of colon: Mother. Father: History is negative Signature Line Electronic Signature on File Esdras Carlson MD Author Signature Dt/Tm: 04/10/2022 10:27 AM Bulk Sealer Daniel Caldera [facility], [address] [place], [place] [address] Result Type: .Outpt Ltr Date of Service: April 10, 2022 10:26 EDT Authorization Status: Final Subject: Consult Note Author or Import Date: MD Carlson Eugene J on April 10, 2022 10:27 EDT Verified By: MD Carlson Eugene J on April 10, 2022 10:27 EDT Encounter info: [id number], [facility], Clinic, 04/10/2022 - 04/10/2022 Allergies Allergy/AdvReac Type Severity Reaction Status Date / Time Sulfa (Sulfonamide AdvReac Intermediate Severe Verified 04/24/22 10:23 Antibiotics) vomiting Home Medications Medication Instructions Recorded Confirmed Type albuterol sulfate 90 mcg/actuation 2 puffs inhalation QID PRN 03/15/20 04/24/22 History aerosol inhaler (ProAir HFA) Shortness Of Breath multivitamin 1 tab PO QAM 03/15/20 04/24/22 History cholecalciferol (vitamin D3) 125 10,000 unit PO QAM 07/12/21 04/24/22 History mcg (5,000 unit) tablet (Vitamin D3) amlodipine 10 mg tablet 10 mg PO QAM #90 tabs 12/02/21 04/24/22 Rx methenamine hippurate 1 gram tablet 1 g PO QPM #90 tabs 01/20/22 04/24/22 Rx simvastatin 20 mg tablet 20 mg PO HS #90 tabs 01/21/22 04/24/22 Rx denosumab 60 mg/mL subcutaneous 60 mg subcut UD #1 mL 04/30/22 Rx syringe (Prolia) Past Med/Surg History Medical History (Updated 05/02/22 @ 09:11 by Enedina Colindres) AAA (abdominal aortic aneurysm) AAA measuring 45 mm in diameter just above the bifurcation, a thrombus is noted in the aneurysm sac without significant stenosis of the luminal diameter per 04/24/22 CTA Abd/Pelvis Chronic back pain Chronic obstructive pulmonary disease Stable Deafness in left ear H/O gastroesophageal reflux (GERD) History of multiple pulmonary nodules History of skin cancer Hyperlipidemia Hypertension 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 No issues noted per post-op anesthesia progress note. Family History Mother Colorectal cancer Hearing loss Cancer Denies family history of Ovarian cancer Prostate cancer No family history of adverse response to anesthesia No family history of bleeding disorder Heart disease Allergies Myocardial infarction Breast cancer Hypertension Asthma Social History Smoking Status: Former smoker Tobacco Type: Cigarettes Number of Years Since Quit: 10; Second Hand Exposure: No; Hx Alcohol Use: No Hx Substance Use: No Preferred Language: Croatian Communication Ability: Effective Visual Impairment: No Limitations Hearing Ability: Hard of Hearing Manager Cargo Required: No Beliefs That Will Affect Care: None marital status: Current Living Situation: Alone Current Living Situation Comment: son comes to visit 3 days per week current occupational status: retired How many Children do You have: 3 Feels Safe at Home: Yes caffeine: Yes (Coffee ) Dental Care, Regularly: Yes Seatbelt Use: always Sunscreen Use: No Assistive Devices: Cane, Hearing Aid - Right and Walker
[~2022-05-07 06:02] MED LIST changes: -ACETAMINOPHEN 500 MG TAB PO SCH; +CEFAZOLIN 1,000 MG/7.5 ML SYR IV SCH; -FAMOTIDINE 20 MG TAB PO SCH; -GENERAL ORDER PROBLEM SCH; +LACTATED RINGER'S 1,000 ML IV SCH; +LR 15ML/HR IV SCH; -LR 500ML BOLUS, THEN 15ML/HR IV SCH; -LR 60ML/HR IV SCH; -ROPIVACAINE 0.5% HCL/PF 150 MG, BUPIVACAINE 0.75% MPF 20 ML, EPINEPHrine 30MG/30ML (OR ... INSTIL SCH; +SODIUM CHLORIDE 0.9% 250 ML IV PRN; -TRANEXAMIC ACID 1,000 MG **IV Intra-op IV SCH; -TRANEXAMIC ACID 1,000 MG **IV Pre-op IV SCH; -ceFAZolin 2000MG 2,000 MG/15 ML SYR IV SCH; -dexAMETHasone 4 MG TAB PO SCH
--- NOTE | 2022-05-07 07:22 | History & Physical Bridge Note ---
Date of Service May 07, 2022 History & Physical Bridge Note I have examined the patient, reviewed the History & Physical and in the interval since the performance of the History & Physical I have noted the following changes of clinical significance: no changes noted
[2022-05-07] MEDS ORDERED: NEOSTIGMINE METHYLSULFATE 1 MG/ML 10ML VIAL ONE (07:23)
[2022-05-07] MEDS ORDERED: fentaNYL citrate 100 MCG/2 ML VIAL ONE ×2 (07:23→11:44)
[2022-05-07] MEDS ORDERED: DEXAMETHASONE SOD INJ 4 MG/ML VIAL ONE (07:23)
[2022-05-07] MEDS ORDERED: ONDANSETRON INJ 2 MG/ML 2 ML VIAL ONE (07:23)
[2022-05-07] MEDS ORDERED: PROPOFOL IV EMULSION 10 MG/ML 20 ML VIAL IV ONE (07:23)
[2022-05-07] MEDS ORDERED: GLYCOPYRROLATE 0.2 MG/ML VIAL ONE (07:23)
[2022-05-07] MEDS ORDERED: ATROPINE SULFATE 0.1 MG/ML 10ML SYR IV PRN (07:48)
[2022-05-07] MEDS ORDERED: FLUMAZENIL 0.1 MG/1 ML 10 ML VIAL IV PRN (07:48)
[2022-05-07] MEDS ORDERED: ONDANSETRON INJ 2 MG/ML 2 ML VIAL IV PRN ×2 (07:48→13:52)
[2022-05-07] MEDS ORDERED: LABETALOL HCL IV 5 MG/ML 20ML IV PRN (07:48)
[2022-05-07] MEDS ORDERED: fentaNYL citrate 100 MCG/2 ML VIAL IV PRN (07:48)
[2022-05-07] MEDS ORDERED: ePHEDrine sulfate 50 MG/ML AMP IV PRN (07:48)
[2022-05-07] MEDS ORDERED: NALOXONE HCL 0.4 MG/1 ML VIAL/CARP IV PRN (07:48)
[2022-05-07] MEDS ORDERED: PROMETHAZINE HCL 12.5 MG in SODIUM CHLORIDE 0.9% 50 ML IV PRN (07:48)
[2022-05-07] MEDS ORDERED: HEPARIN SOD (PORCINE) 1000 UNIT/ML ONE ×3 (09:40→10:49)
[2022-05-07] MEDS ORDERED: LIDOCAINE 2% MPF LOCAL 5 ML VIAL INFIL ONE (09:56)
[2022-05-07] MEDS ORDERED: ROCURONIUM BROMIDE 10 MG/ML 5 ML VIAL IV ONE (09:56)
[2022-05-07] MEDS ORDERED: ePHEDrine sulfate 50 MG/ML SYR ONE (09:56)
[2022-05-07] MEDS ORDERED: VISIPAQUE IV PRN (11:44)
[2022-05-07] MEDS ORDERED: ARISTA ABSORBABLE HEMOSTAT 3GM TOP ONE (11:46)
[2022-05-07] MEDS ORDERED: SURGICEL ABSORB HEMOSTAT 2IN X 14IN TOP ONE (11:52)
--- NOTE | 2022-05-07 11:58 | Post Operative Brief Note ---
Immediate Post Op Note v1 Date of Surgery May 07, 2022 Pre & Post Diagnosis Operation Date: 05/07/22 08:00 Pre-Op Diagnosis: Abdominal Aortic Aneurysm Post-Op Diagnosis: Abdominal Aortic Aneurysm I identified the patient and participated in the time-out.: Yes Procedure Operation Date: 05/07/22 08:00 Actual Procedures p Percutaneous Endovascular Repair of Abdominal Aortic Aneurysm, Right Common Femoral Artery Exposure (Bilateral) - Esdras Carlson MD Surgeon Esdras Carlson MD In Flight Refueling Operator Quita,PAC Estimated Blood Loss 150 Findings Consistent with Post-Op Diagnosis Anesthesia Type General Complications none Disposition Accompanied Patient To Recovery: No Disposition: Recovery Room
[2022-05-07] MEDS ORDERED: NITROGLYCERIN 5 MG/ML 10 ML VIAL ONE (12:24)
[2022-05-07] MEDS ORDERED: LABETALOL HCL IV 5 MG/ML 20ML IV ONE (12:24)
[2022-05-07 13:00] LABS: Hematocrit (blood only) 35.1 % (34.1-44.9); Hemoglobin 12.1 g/dl (12.0-16.0)
--- NOTE | 2022-05-07 13:04 | Anesthesiology Progress Note ---
Date of Service May 07, 2022 Anesthesia Post Procedure Vital Signs Vital Signs: Temp Pulse Pulse Resp BP BP BP 05/07/22 12:55 36.3 C L 65 18 136/68 138/56 L 05/07/22 12:45 67 18 124/55 L 128/69 05/07/22 12:35 63 21 135/71 05/07/22 12:25 66 18 143/63 H 143/76 H 05/07/22 12:17 36.1 C L 75 18 147/74 H 05/07/22 06:59 123/68 124/67 05/07/22 06:43 36.6 C 66 18 150/73 H Pulse Ox O2 Del Method O2 Flow Rate 05/07/22 12:55 97 Nasal Cannula 2 05/07/22 12:45 96 Nasal Cannula 2 05/07/22 12:35 100 Oxymask 9 05/07/22 12:25 100 Oxymask 9 05/07/22 12:17 98 Oxymask 9 05/07/22 06:59 05/07/22 06:43 96 Room Air Pain Intensity Right Groin: Pain Intensity: 4 Transfer of Care Handoff Completed per policy Notes Mental Status: alert / awake / arousable Patient Amnestic to Procedure: Yes Nausea / Vomiting: adequately controlled Pain: adequately controlled Airway Patency, RR, SpO2: stable & adequate BP & HR: stable & adequate Hydration State: stable & adequate Anesthetic Complications: no major complications apparent
[2022-05-07] MEDS ORDERED: ALBUTEROL HFA 8 GM INHALER INH PRN (13:52)
[2022-05-07] MEDS ORDERED: MoRPHine SULFATE 4 MG/ML 1 ML CARP\\VIAL IV PRN (13:52)
[2022-05-07] MEDS ORDERED: D5W AND 1/2NSS 1,000 ML IV SCH (13:52)
[2022-05-07] MEDS ORDERED: oxyCODONE/ACETAMINOPHEN 5mg/325mg TAB PO PRN (13:52)
[2022-05-07] MEDS: LACTATED RINGER'S 1,000 ML IV SCH ×2 (14:30→21:34)
--- NOTE | 2022-05-07 15:23 | Critical Care Consultation ---
Date of Consultation May 07, 2022 Assessment & Plan (1) AAA (abdominal aortic aneurysm): Reason Critically Ill: Status post PEVAR for AAA repair PLAN: Neuro: Pain -Morphine/Percocet as needed Resp: COPD -Albuterol as needed CV: Hypertension -Norvasc 10 mg to restart in a.m. Fluids/Renal: LR at 125/h ID: Cefazolin given preop GI/Nutrition: AHA diet to start tonight DVT prophylaxis: SCDs Endocrine: ICU hyperglycemia protocol Vascular access: Peripheral IVs Code Status: Full code Disposition: ICU (2) COPD (chronic obstructive pulmonary disease): History of Present Illness Reason for Consultation: Status post P EVAR for abdominal aortic aneurysm Attending Physician: Esdras Carlson MD History of Present Illness Patient is an 86-year-old female who had a abdominal aortic aneurysm which had increased in size over the previous months. She was slated to undergo a percutaneous endovascular repair of the aneurysm. She underwent successful percutaneous endovascular repair today with vascular surgery, also underwent bilateral common femoral exposure for the procedure. Allergies Allergy/AdvReac Type Severity Reaction Status Date / Time Sulfa (Sulfonamide AdvReac Intermediate Severe Verified 05/07/22 06:33 Antibiotics) vomiting Home Medications Medication Instructions Recorded Confirmed Type albuterol sulfate 90 mcg/actuation 2 puffs inhalation QID PRN 03/15/20 05/07/22 History aerosol inhaler (ProAir HFA) Shortness Of Breath multivitamin 1 tab PO QAM 03/15/20 05/07/22 History cholecalciferol (vitamin D3) 125 10,000 unit PO QAM 07/12/21 05/07/22 History mcg (5,000 unit) tablet (Vitamin D3) amlodipine 10 mg tablet 10 mg PO QAM #90 tabs 12/02/21 05/07/22 Rx methenamine hippurate 1 gram tablet 1 g PO QPM #90 tabs 01/20/22 05/07/22 Rx simvastatin 20 mg tablet 20 mg PO HS #90 tabs 01/21/22 05/07/22 Rx denosumab 60 mg/mL subcutaneous 60 mg subcut UD #1 mL 04/30/22 05/07/22 Rx syringe (Prolia) Patient History Medical History AAA (abdominal aortic aneurysm) AAA measuring 45 mm in diameter just above the bifurcation, a thrombus is noted in the aneurysm sac without significant stenosis of the luminal diameter per 04/24/22 CTA Abd/Pelvis Chronic back pain Chronic obstructive pulmonary disease Stable Deafness in left ear H/O gastroesophageal reflux (GERD) History of multiple pulmonary nodules History of skin cancer Hyperlipidemia Hypertension 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 Osteoarthritis Osteoporosis Presence of pessary Current Surgical History Hip fracture due to osteoporosis s/p surgical intervention History of appendectomy History of bladder surgery History of cataract surgery R/L History of colonoscopy History of hysterectomy LINDSEY with BSO History of open reduction and internal fixation (ORIF) procedure Left anterior bipolar hip (03/16/20): SAB at L3/L4 (x2 attempts) at [facility] History of tonsillectomy History of total knee arthroplasty Left TKA (04/15/21): SAB at L4/5 x1 attempt + PNB at [facility]. No issues noted per post-op anesthesia progress note. Family History Mother Colorectal cancer Hearing loss Cancer Denies family history of Ovarian cancer Prostate cancer No family history of adverse response to anesthesia No family history of bleeding disorder Heart disease Allergies Myocardial infarction Breast cancer Hypertension Asthma Social History Smoking Status: Former smoker Tobacco Type: Cigarettes Smoking End Date: Quit 10 years ago; Number of Years Since Quit: 10; Second Hand Exposure: No; Do You Dip or Chew Tobacco: No; Tobacco Cessation Education Requested by Patient: No Hx Alcohol Use: No Hx Substance Use: No Preferred Language: Georgian Communication Ability: Effective Communication Ability Comment: pt deaf in left ear, hearing aid in right Visual Impairment: No Limitations Hearing Ability: Hard of Hearing Rn Team Leader Required: No Beliefs That Will Affect Care: None marital status: Current Living Situation: Alone Current Living Situation Comment: son comes to visit 3 days per week current occupational status: retired How many Children do You have: 3 Other Information That Helps Us Care for You: No Feels Safe at Home: Yes Safety Concerns: Feels Safe At This Time caffeine: Yes (Coffee ) Dental Care, Regularly: Yes Seatbelt Use: always Sunscreen Use: No Assistive Devices: Cane, Hearing Aid - Right and Walker Assistive Devices Comment: uses cane more than walker; pt deaf in left ear Review of Systems Review of Systems: No chest pain, no shortness of breath. Sore in bilateral groins. Physical Exam Physical Exam: General: Alert. nontoxic. Skin: Warm, dry, Head: Atraumatic Ears, nose, mouth and throat: airway patent Cardiovascular: Normal peripheral perfusion Groin: Bilateral dressings in place no shadowing, no pulsatile masses Respiratory: no respiratory distress Gastrointestinal: Non distended Musculoskeletal: No deformity Results & Data Results & Data ([facility]) Vital Signs (Past 12 Hours) Vital Signs Temp Pulse Pulse Pulse Resp BP BP 05/07/22 14:39 78 05/07/22 14:00 78 23 05/07/22 14:00 133/72 05/07/22 13:41 74 19 05/07/22 13:05 57 L 21 05/07/22 12:55 36.3 C L 65 18 05/07/22 12:45 67 18 05/07/22 12:35 63 21 05/07/22 12:25 66 18 05/07/22 12:17 36.1 C L 75 18 05/07/22 06:59 123/68 05/07/22 06:43 36.6 C 66 18 BP BP Pulse Ox O2 Del Method O2 Flow Rate 05/07/22 14:39 05/07/22 14:00 100 05/07/22 14:00 05/07/22 13:41 99 05/07/22 13:05 131/64 130/52 L 95 Nasal Cannula 2 05/07/22 12:55 136/68 138/56 L 97 Nasal Cannula 2 05/07/22 12:45 124/55 L 128/69 96 Nasal Cannula 2 05/07/22 12:35 135/71 100 Oxymask 9 05/07/22 12:25 143/63 H 143/76 H 100 Oxymask 9 05/07/22 12:17 147/74 H 98 Oxymask 9 05/07/22 06:59 124/67 05/07/22 06:43 150/73 H 96 Room Air Critical Care Results & Data Vital Signs (Past 12 Hours) Vital Signs Temp Pulse Pulse Pulse Resp BP BP 05/07/22 14:39 78 05/07/22 14:00 78 23 05/07/22 14:00 133/72 05/07/22 13:41 74 19 05/07/22 13:05 57 L 21 05/07/22 12:55 36.3 C L 65 18 05/07/22 12:45 67 18 05/07/22 12:35 63 21 05/07/22 12:25 66 18 05/07/22 12:17 36.1 C L 75 18 05/07/22 06:59 123/68 05/07/22 06:43 36.6 C 66 18 BP BP Pulse Ox O2 Del Method O2 Flow Rate 05/07/22 14:39 05/07/22 14:00 100 05/07/22 14:00 05/07/22 13:41 99 05/07/22 13:05 131/64 130/52 L 95 Nasal Cannula 2 05/07/22 12:55 136/68 138/56 L 97 Nasal Cannula 2 05/07/22 12:45 124/55 L 128/69 96 Nasal Cannula 2 05/07/22 12:35 135/71 100 Oxymask 9 05/07/22 12:25 143/63 H 143/76 H 100 Oxymask 9 05/07/22 12:17 147/74 H 98 Oxymask 9 05/07/22 06:59 124/67 05/07/22 06:43 150/73 H 96 Room Air Lab & Micro Results (Past 24 Hours) Hgb 12.1 g/dl (12.0-16.0) 05/07/22 Hct 35.1 % (34.1-44.9) 05/07/22 No Data to Display No Data to Display I & O Totals 24 Hours 05/06/22 05/07/22 05/08/22 06:59 06:59 06:59 Intake Total 1450 / 1450 Output Total 975 / 975 Balance 475 / 475 Cumulative 04/11/22 13:07 thru 05/07/22 12:52 Intake Total 1450 Output Total 975 Balance 475 RT Ventilator Mngmt (Last Documented) Ventilator Ordered Settings Respiratory Rate 23 05/07/22 14:00 Ventilator - PT Measurements Respiratory Rate 23 Coding Level of Care Code 36610 Inpt Consult Level 4 Diagnoses AAA (abdominal aortic aneurysm) I71.4 COPD (chronic obstructive pulmonary disease) J44.9 COPD type: unspecified COPD (1) COPD (chronic obstructive pulmonary disease) COPD type: unspecified COPD Qualified Code(s): J44.9 - Chronic obstructive pulmonary disease, unspecified
[2022-05-07] MEDS: ceFAZolin 1000MG 1,000 MG/7.5 ML SYR IV SCH (17:50)
[2022-05-07] MEDS ORDERED: METHENAMINE HIPPURATE 1 GM TAB PO SCH (21:00)
[2022-05-07] MEDS ORDERED: SIMVASTATIN 20 MG TAB PO SCH (21:00)
[2022-05-08] MEDS: ceFAZolin 1000MG 1,000 MG/7.5 ML SYR IV SCH (01:00)
[2022-05-08] MEDS: LACTATED RINGER'S 1,000 ML IV SCH (04:27)
[2022-05-08 06:29] LABS: Basophils # (auto) 0.02 K/uL (0-0.2); Basophils % (auto) 0.2 %; Eosinophils # (auto) 0.01 K/uL (0-0.50); Eosinophils % (auto) 0.1 %; Hemoglobin 11.3 g/dl (12.0-16.0); Immature Granulocytes # (auto) 0.03 K/uL (0.00-0.02); Immature Granulocytes % (auto) 0.3 %; Lymphocytes % (auto) 10.9 %; Mean Corpuscular Hgb Conc 34.2 g/dL (32.0-36.0); Mean Corpuscular Volume 90.7 fL (80.0-100.0); Mean Platelet Volume 9.4 fL (9.4-12.3); Monocytes # (auto) 0.79 K/uL (0.24-0.82); Monocytes % (auto) 8.6 %; Neutrophils # (auto) 7.35 K/uL (1.4-6.5); Neutrophils % (auto) 79.9 %; Platelet Count 153 K/uL (130-400); RDW Coefficient of Variation 13.2 % (11.5-14.5); Red Blood Count 3.64 M/uL (3.93-5.22)
[2022-05-08 06:55] LABS: BUN Creatinine Ratio 16.5 (10-20); Calcium 8.3 mg/dl (8.5-10.1); Creatinine Clr Calc Pharmacy 56.3 ml/min; Est GFR (African American) 79.1 ml/min; Est GFR (Non-African American) 68.3 ml/min; Magnesium 1.8 mg/dl (1.7-2.4); Phosphorus 3.5 mg/dl (2.5-4.9); Potassium 3.8 mmol/L (3.5-5.1)
--- NOTE | 2022-05-08 07:47 | Surgery Progress Note ---
Date of Service May 08, 2022 Assessment & Plan (1) S/P endovascular aneurysm repair: Plan: Doing well from her PEVAR without complications. (2) Acute blood loss anemia: Plan: Blood loss from surgery and expected. No treatment needed.. D/C today Admission and Anticipated Discharge Date Admission Date: May 07, 2022 Subjective Only complaint is low back pain last night which she normally has. No groin or leg or abdominal pain. Tolerating diet. Physical Exam Constitutional: WD/WN, vitals as above Respiratory: normal respiratory effort; no respiratory distress Cardiovascular: Rate/Rhythm: regular rate and regular rhythm Extremities: no calf tenderness and no edema Gastrointestinal (Abdomen): Inspection/Auscultation: abdomen normal to inspection; abdomen not distended Percussion/Palpation: abdomen soft; abdomen nontender Musculoskeletal: no cyanosis or clubbing, extremities motor strength 5/5 Skin: dressing intact Neurologic: CN's II-XI intact bilaterally and moves all extremities Psychiatric: Orientation: alert and oriented x 3 Results & Data ([facility]) Vital Signs (Past 12 Hours) Vital Signs Temp Pulse Pulse Resp BP Pulse Ox O2 Del Method 05/08/22 07:05 36.5 C 05/08/22 06:45 49 L 15 94 05/08/22 06:30 52 L 15 93 05/08/22 06:15 52 L 16 93 05/08/22 06:00 53 L 19 94 05/08/22 06:00 136/60 05/08/22 05:45 54 L 14 92 05/08/22 05:30 52 L 13 92 05/08/22 05:15 56 L 14 92 05/08/22 06:22 60 05/08/22 05:00 53 L 17 95 05/08/22 05:00 143/67 H 05/08/22 04:30 72 24 98 05/08/22 04:00 56 L 16 92 05/08/22 04:00 134/61 05/08/22 03:30 53 L 15 94 05/08/22 03:30 136/61 05/08/22 03:00 55 L 15 93 05/08/22 03:00 130/64 05/08/22 02:30 56 L 15 96 05/08/22 02:30 138/58 L 05/08/22 05:22 36.8 C 05/08/22 00:00 36.8 C 05/08/22 02:00 61 13 94 05/08/22 02:00 144/59 H 05/08/22 01:30 74 16 94 05/08/22 01:30 144/77 H 05/08/22 01:00 56 L 14 95 05/08/22 01:00 139/60 05/08/22 00:30 120/56 L 05/08/22 00:30 55 L 15 93 05/08/22 00:00 56 L 14 94 05/08/22 00:00 121/58 L 05/07/22 23:30 126/64 05/07/22 23:30 64 12 94 05/07/22 23:20 37.0 C 65 15 96 Room Air 05/08/22 00:00 67
[2022-05-08] MEDS ORDERED: amLODIPine BESYLATE 5 MG TAB PO SCH (09:00)
[2022-05-08] MEDS ORDERED: CHOLECALCIFEROL 5,000 UNITS 125 MCG TAB PO SCH (09:00)
[2022-05-08] MEDS ORDERED: MULTIVITAMIN TAB PO SCH (09:00)
--- NOTE | 2022-05-09 11:27 | Discharge Summary ---
Date of Service May 09, 2022 Admission HPI Per Admitting Provider Chief Complaint Room 5-1 year f/u no new medical problems. no claudication or pain, no numbness, she walks regularly. Had MOHs left leg. Healed well. bp about 120-130 at home History of Present Illness I the pleasure of seeing [place] today for follow-up. As you know she is a 86-year-old female who we have been following for abdominal aortic aneurysm. She has no complaints. She is ambulating without any claudication symptoms. She has no complaints of back or abdominal discomfort. She has no complaints of cerebrovascular insufficiency. Denies any discoloration or ulcerations of her lower extremities. Review of Systems 10 systems reviewed. Other than the HPI no positive findings. Physical Exam Vitals & Measurements HR: 58 (Monitored) BP: 118/72 SpO2: 97% WT: 77 kg Input and Output - Last 24 hours (Last 8 hours) No I/O Data Found: On exam she is awake alert and oriented x3. Her blood pressure is 118/72 on the right 112/68 on the left. Her radials carotids are +2 bilaterally. No carotid bruits. Her heart had a regular rate and rhythm. Lungs are clear to auscultation. Abdominal exam is benign. There is mild dilatation of the aorta in the midepigastrium. There is no abdominal tenderness. Femorals and pedal pulses are all +2 bilaterally. Neurologic exam is grossly intact. Duplex of abdominal aorta showed a 5.1 cm abdominal aortic aneurysm. This is increased from 4.6 her last visit last year. Assessment/Plan AAA (abdominal aortic aneurysm) At this point being that her aneurysm is increased over 5 cm we recommend that we go ahead and repair this aneurysm. We will obtain a CT angiogram and an echo for evaluation prior to going ahead with this procedure. Most likely she will be an endovascular repair of the abdominal aortic aneurysm. Thank you very much for letting us participate in the care of this patient. We will keep you informed as to her follow-up. Sincerely, Curtis Carlson MD Ordered: Echo TransTHORacic TTE Complete Problem List/Past Medical History Ongoing AAA (abdominal aortic aneurysm) Bone History of malignant melanoma of skin History of squamous cell carcinoma of skin Hyperlipidemia Joint LBP (low back pain) Sacroiliac joint inflamed Historical No qualifying data Procedure/Surgical History Shave biopsy and cauterization of skin (02/13/2022) Electrodesiccation with curettage (12/30/2021) Mohs surgery (09/04/2021) Shave biopsy of skin (08/20/2021) Hysterectomy Tonsillectomy planned Medications Inpatient No active inpatient medications Home amLODIPine 10 mg oral tablet, 10 mg= 1 tab, PO, Daily Caltrate, 1 tab, PO, Daily Keflex 500 mg oral capsule, See Instructions methenamine hippurate 1 g oral tablet, 1 g= 1 tab, PO, qhs Multiple Vitamins oral tablet, 1 tab, PO, Daily Prolia 60 mg/mL subcutaneous solution Vitamin D3, 5000 Int_Unit, PO, Daily Voltaren 1% topical gel, 4 g, topical, qid, 3 refills Zocor 20 mg oral tablet, 20 mg= 1 tab, PO, qhs Allergies sulfADIAZINE (Vomiting) Social History Smoking Status Never smoked cigarettes Tobacco Former smoker, Stopped age 66 Years. Family History Cancer of colon: Mother. Father: History is negative Signature Line Electronic Signature on File Esdras Carlson MD Author Signature Dt/Tm: 04/10/2022 10:27 AM Rubber Block Layer Daniel Caldera [facility] [address], [address] [place], [place] [id number] Result Type: .Outpt Ltr Date of Service: April 10, 2022 10:26 EDT Authorization Status: Final Subject: Consult Note Author or Import Date: MD Carlson Eugene J on April 10, 2022 10:27 EDT Verified By: MD Carlson Eugene J on April 10, 2022 10:27 EDT Encounter info: [id number], [facility] [facility], 04/10/2022 - 04/10/2022 Admission Exam Per Admitting Provider On exam she is awake alert and oriented x3. Her blood pressure is 118/72 on the right 112/68 on the left. Her radials carotids are +2 bilaterally. No carotid bruits. Her heart had a regular rate and rhythm. Lungs are clear to auscultation. Abdominal exam is benign. There is mild dilatation of the aorta in the midepigastrium. There is no abdominal tenderness. Femorals and pedal pulses are all +2 bilaterally. Neurologic exam is grossly intact. Duplex of abdominal aorta showed a 5.1 cm abdominal aortic aneurysm. This is increased from 4.6 her last visit last year. Principal Diagnosis 1. s/p PEVAR with R groin femoral artery exposure 2. AAA Discharge Exam Constitutional WD/WN, vitals as above Respiratory normal respiratory effort; no respiratory distress Cardiovascular Rate/Rhythm: regular rate and regular rhythm Extremities: no calf tenderness and no edema Gastrointestinal (Abdomen) Inspection/Auscultation: abdomen normal to inspection; abdomen not distended Percussion/Palpation: abdomen soft; abdomen nontender Musculoskeletal no cyanosis or clubbing, extremities motor strength 5/5 Neurologic CN's II-XI intact bilaterally and moves all extremities Psychiatric Orientation: alert and oriented x 3 Discharge Data Allergies Allergy/AdvReac Type Severity Reaction Status Date / Time Sulfa (Sulfonamide AdvReac Intermediate Severe Verified 05/07/22 06:33 Antibiotics) vomiting Consultations 05/07/22 13:52 Consult Rehab Specialist Routine Procedures Performed Operation Date: 05/07/22 08:00 Actual Procedures p Percutaneous Endovascular Repair of Abdominal Aortic Aneurysm, Right Common Femoral Artery Closure (Bilateral) - Esdras Carlson MD Ordered Studies 05/07/22 07:13 EV AAA repair aorta only Routine US EV guide vascular access Routine Hospital Course (1) S/P endovascular aneurysm repair: Doing well from her PEVAR POD #1 without complications. (2) Acute blood loss anemia: Blood loss from surgery and expected. No treatment needed. D/C today Total Time Total Time Spent Total Time Spent (In Minutes): 0 Discharge Plan Discharge Items Patient Disposition: Home - Self-Care Reason For Visit: Abdominal Aortic Aneurysm Discharge Diagnosis: Abdominal aortic aneurysm, endovascular repair Activity: Per Instructions section Lifting: Gradually increase as tolerated Bathing Comment: May shower starting tomorrow. Do not soak groin wounds underwater. Exercise/Sports: Gradually increase as tolerated Weightbearing: Full weightbearing Non-emergency contact: Surgeon Call non-emergency contact if: your temperature is above 101.5, your wound has increased redness, your wound has increased drainage and your wound pain has increased Follow-up/Referrals: Pavithra Segovia MD [Primary Care Provider] - Diet: Heart Healthy Addtl Attending Provider Instructions: SPECIAL CARE INSTRUCTIONS: Medications: * Continue to take your medications as directed. Incision/Puncture Site Care: * You will have an incision or puncture in each of your groins. Liquid glue will be used to seal your incisions/puncture site. This will lift off as the incisions/puncture sites heal. * If Liquid glue is not used, there will be small dressings covering your incisions. After you get home, you may remove the dressings and shower - allowing the warm soapy water to run over it. * Be sure to dry the sites well and keep them dry. * DO NOT SOAK IN A TUB/POOL/etc. UNTIL ALL SURGICAL SITES ARE HEALED. DO NOT REMOVE THE GLUE UNTIL THE INCISIONS HEAL. Restrictions: * Limit yourself to mold operator activity for the first week. * You may walk and go up and down steps. * Avoid excessive bending or movement at the level of the incisions or punctures. Risks and Possible Complications: * Infection/Drainage/Bleeding - Drainage or bleeding from the incisions/puncture site should be minimal. If you have excessive bleeding or drainage, call our office ([phone]) right away. * Pain/Numbness - You may experience some mild pain or soreness at your incision sites. You may also have some numbness around the incisions or into the insides of your thighs. Bruising is normal and should resolve within 2 weeks. * Changes in Appetite or Bowel Habits - Mostly related to anesthesia and pain medication, some patients have reported decreased appetite and/or problems with constipation. These symptoms usually improve over a few weeks. Remembering to take an [id number] stool softener, as directed, will help you to avoid constipation. Call our office and seek emergent treatment if you develop: * Fever or chills * Have a temperature greater than 101 degrees F * Any redness or purulent drainage from your incisions or punctures * Severe abdominal, chest or back pain SKIN IRRITATION: * You may experience some redness and/or swelling in the area where radiation was administered. If any skin irritation occurs, please contact your family physician. You will be receiving a call from the Vascular Surgery Nurse after you are discharged. FOLLOW UP VISIT: It is important for you to keep your follow up appointments with your medical provider. Keep any scheduled doctor appointments. Pending Studies at Discharge: No Stand-Alone Forms: My [place], Smoking Cessation Medications and DC Order Prescriptions: New oxycodone-acetaminophen [Percocet] 5-325 mg tablet 1 tab PO Q8H PRN (Reason: pain) Qty: 7 0RF Continued amlodipine 10 mg tablet 10 mg PO QAM Qty: 90 3RF methenamine hippurate 1 gram tablet 1 g PO QPM Qty: 90 1RF simvastatin 20 mg tablet 20 mg PO HS Qty: 90 3RF Prolia 60 mg/mL syringe 60 mg subcut UD Qty: 1 1RF Label Comments: Every 6 months had last October or November Rx Instructions: 60 mg subcut once every [address] office. REFRIGERATE. Use within 14 days once at room temp. cholecalciferol (vitamin D3) [Vitamin D3] 125 mcg (5,000 unit) tablet 10,000 unit PO QAM multivitamin Tablet 1 tab PO QAM albuterol sulfate [ProAir HFA] 90 mcg/actuation HFA aerosol inhaler 2 puffs INH QID PRN (Reason: Shortness Of Breath) Discharge Orders: Discharge Order (Routine); Ordered 05/08/22 Ordered By: Esdras Carlson Admission Data Admit Date/Time: 05/07/22 07:22 Attending Provider: Esdras Carlson Admit Provider: Esdras Carlson Primary Care Provider: Pavithra Segovia Other Providers: José Bryant ; Gen Regan ; Georgi Alvares ; Jeff Morrison ; Lei Faulkner ; Arie Cedillo ; Comfort Morton ; Jesus Irizarry ; Shira Alonzo Other Interventions: Discharge Summary Assessment (RN) Last Done: 05/08/22 14:26
--- NOTE | 2022-05-26 08:18 | Operative Report ---
Post Operative Report Pre & Post Diagnosis Operation Date: 05/07/22 08:00 Pre-Op Diagnosis: Abdominal Aortic Aneurysm Post-Op Diagnosis: Abdominal Aortic Aneurysm I identified the patient and participated in the time-out.: Yes Procedure Operation Date: 05/07/22 08:00 Actual Procedures p Percutaneous Endovascular Repair of Abdominal Aortic Aneurysm, Right Common Femoral Artery Closure (Bilateral) - Esdras Carlson MD Surgeon Esdras Carlson MD Plastic Boat Buffer [place],PAC Estimated Blood Loss 150 Findings Consistent with Post-Op Diagnosis Specimens none Anesthesia Type General Complications none Disposition Accompanied Patient To Recovery: No Disposition: Recovery Room Indications Is an 86-year-old female who with a large abdominal aortic aneurysm which has grown. Endovascular repair is recommended. I have discussed the risks options and benefits of the procedure with the patient. The patient understands the risks options and benefits and agrees to the procedure. Description of Procedure Patient was brought to the OR and placed in supine position. Patient was intubated and general anesthesia was induced by our anesthesia colleague.an A- line was placed placed. Cox was placed. A safety timeout was performed to identify patient's name, date of and the correct procedure. Abdomen and groins were prepped and draped in sterile fashion. Ultrasound guided percutaneous access of the right groin was performed. 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 We accessed using modified Seldinger technique. A J-wire was advanced through the needle, the needle was then removed and a skin reed was performed using 11 blade. The tract was dilated using curved hemostat to allow the Perclose sutures to seal. We then dilated the arteriotomy with a 5 Estonian sheath. 2 Perclose devices were 3 deployed at 10 and 2:00 positions. The sutures were secured with Steri-Strips. An 8 Estonian was then placed in the right groin. We turned our attention to the left side and we similarly accessed the left common femoral artery which was also aneurysmal. Same steps were applied and an 8 Estonian sheath was placed in the left groin. Patient was heparinized with 5000 of IV heparin. Through the right groin, we advanced a soft Glidewire followed by a Kumpe catheter. The wire then was exchanged for a stiff Clarisse wire. Similarly, we placed a Clarisse wire through the left groin through Kumpe catheter. We then upsized our access to 14 Estonian dilator and subsequently to 18 Estonian sheath. The sheaths were advanced all the way up in the aortic sac. We advanced the device ([place] conformable C3 trunk [id number] cm) through the left sheath. A marked pigtail was advanced through the right sheath. The wire was removed from the right side and we allowed the catheter to perform its shape. We then hooked the power injector to the marked pigtail. An aortogram was performed. The renal arteries were identified and we deployed the proximal portion of the device and opened the contralateral gate. Another arteriogram was performed to check the position of the proximal portion of the graft. It sat just below the renal arteries. Cannulation of the gait was then accomplished using a Kumpe catheter and 035 Glidewire. The Kumpe catheter spun easily in the neck of the graft. We then exchanged the wire to the Garcia wire and inserted a pigtail.. We performed an angiogram of the left iliac system through a hand-injection through the left sheath to identify the hypogastric origin. We then deployed a 14x14 contralateral limb. Once this was done we deployed the ipsilateral limb. This limb was short and what we like. We did a hand-injection to ny the hypogastric takeoff. We then deployed a 14 x 7 iliac extension into the right iliac landing just proximal to the hypogastric origin. A Q50 balloon was advanced through the left sheath. The proximal attachment site and the contra limb were then ballooned with a Q50 balloon. This was completed we moved over to the right side and inserted the Q50 and inflated the balloon to get good approximation of the right limb of the graft as well as the iliac extension. We then reinserted the pigtail. Completion aortogram demonstrated that left and right renal arteries were patent. No type I endoleak was seen. There was a small type II endoleak noted. Both hypogastric arteries were patent. The sheath was removed from the left side and the Perclose knot was tied down with good hemostasis. The wire was removed and manual pressure was held. On the right side the 2 Perclose devices were tied securely. Adequate stasis was noted. Patient had palpable DP and PT pulses at the end of the case. Sterile dressings were applied to the wound.The patient left the operation room in satisfactory condition and tolerated the procedure well. All needle and sponge counts were correct at the end of the procedure. Dasia Cuevas Pac assisted due to lack of resident availability and was necessary for positioning, draping, retraction, wound closure deep layers, subcutaneous tissue, and skin closure and was necessary for assisting with the case. I attest to the content of the Intraoperative Record and any orders documented therein. Any exceptions are noted below.
== END 2022-05-08 15:41 | disposition home or self-care (01) | DRG 269 ==
LOC: ASU 06:02 → 1E 07:22

== ENCOUNTER 2024-07-03 15:56 | Inpatient (IN) ==
--- NOTE | 2024-07-03 16:11 | Emergency Department Note ---
Impression & Plan Fall, Acute UTI, Rhabdomyolysis ED Provider Note Provider: Lee Soriano MD DATE OF SERVICE: 07/03/2024 CHIEF COMPLAINT: Fall, on floor HISTORY OF PRESENT ILLNESS: Patient is a 89-year-old female history of GERD, COPD, repaired AAA, hearing loss, arthritis, hypertension presenting here today via ambulance from her home. Evidently found on the floor by family. Appears she had a fall and was on the ground. Complained to them a bit of some right hip pain. Upon arrival patient denies pain. States that she after breakfast was out in her son room trying to clean up some Halloween decorations when she slipped and fell to the ground. Denies striking her head or headache. Denies loss of conscious. Denies feeling dizzy. Denies fever cough or cold. Denies breathing issues, chest pain, or abdominal pain. Again explicitly denies any right hip pain or injury to the extremities. Patient is not really clearly able to tell me exactly how long she was on the floor but again it appears since this morning and is now mid afternoon. Medication list with the patient does not indicate anticoagulants. EMS report that the patient is maybe a little bit confused but family at the scene said this was her normal. PAST MEDICAL HISTORY: As noted above MEDICATIONS: Reviewed home medication SOCIAL HISTORY: Lives by herself PHYSICAL EXAM: GENERAL: alert and oriented in no acute distress on stretcher initially on scope stretcher which was removed. Patient smells of urine. Head: normocephalic and atraumatic EYES: No injection, discharge or icterus. PERRL, EOMI. NECK: Trachea midline. Supple no midline cervical tenderness ENT: Mucous membranes pink and moist. No septal hematoma or obvious oral bleeding. LUNGS: Airway patent. No retractions. Breath sounds clear with good air entry bilaterally. HEART: Regular rate and rhythm. No chest wall tenderness or clavicular tenderness ABDOMEN: Soft and non-tender, without guarding or rebound. No masses. Stable pelvis. There is an approximately 4 x 8 cm area of some contusion/discoloration to the right lower abdomen. Underwear with pad in place removed with some still urine in soiled nature apparent. BACK: No midline tenderness, no SI joint tenderness. No bilateral flank tenderness. SKIN: Acyanotic, warm, dry with a grade 1 sacral decubitus ulcer/erythema noted. Additional as below EXTREMITIES: Without swelling or tenderness of the lower extremities other than a slight abrasion of the right knee. Good range of motion of the extremities without significant tenderness particularly no tenderness in the right hip. NEUROLOGICAL: No focal deficits. No aphasia. No facial droop or slurred speech. Normal strength and tone in the extremities. Sensation to gross touch normal. Ambulatory. EK bpm sinus rhythm slight first-degree AV block with occasional PVC. Some baseline artifact without clear acute ST segment elevation or depression with a QTc of 479. CONTINUOUS CARDIAC MONITORING: was ordered and showed a heart rate of 70s to 80s bpm in sinus rhythm first-degree block GCS 15. Patient's laboratory studies and imaging reviewed. Differential includes Fracture, dislocation, contusion, intra-abdominal, pneumothorax, intrathoracic, intracranial, neurologic, compartment syndrome, rhabdomyolysis, as well as other pathologies. IMPRESSION/MEDICAL DECISION MAKING: Patient alert and moving all extremities. Denies any significant pain. Stable pelvis. No significant pain with ROM of the extremities and doubt hip fracture given that she did have some pain has a little bit of bruising in the right lower quadrant did obtain x-ray of the hip pelvis as well as CT of the head, cervical spine, chest, and abdomen pelvis. Basic labs obtained and EKG but it does not sound like a syncopal event. Not on high risk anticoagulants. Was on the ground for some period so his CK was obtained. Will obtain a urine sample as he does have some still urine smell but may be just be from being on the ground. Small minimal sacral decubitus ulcer appreciable and nursing assisted with some padding in this area. Urinalysis with nitrates and bacteria and will treat. Per microbiology reviewed no resistance and will give a dose of ceftriaxone at this time. Mild leukocytosis 10.7 unclear if this infectious and more just stress response. No anemia or thrombocytopenia noted. No significant renal dysfunction or severe electrolyte abnormality noted. Troponin is elevated at 59 unclear if demand or baseline but low suspicion for ACS at this time given her lack of chest pain. Given the elevated CK question if this is just a sequelae of rhabdomyolysis. Will start on IV fluid infusion. Cautious given her age we will avoid large boluses. CT the head per radiology without acute intracranial bleeding or evidence of fracture. CT of the cervical spine without acute fracture. CT of the chest abdomen pelvis per radiology question some age-indeterminate right and left rib fractures without other intra-abdominal/pelvic traumatic findings noted. Patient again without significant tenderness in the chest wall and do not believe these are acute. Discussed with the patient findings physically findings of UTI and rhabdomyolysis. Son updated at bedside as well. He does report that she is maybe been hallucinating a little bit today. Believe she requires further care here at the hospital and the hospitalist team was consulted. DIAGNOSIS: Fall, UTI, rhabdomyolysis, hallucinations DISPOSITION: Hospitalist will evaluate Patient was agreeable with this plan. Past Med/Surg History Problem List Rhabdomyolysis (Acute) Acute UTI (Acute) Fall (Acute) Rectal bleeding Osteoarthritis of right knee Vitamin D deficiency Dyspnea on exertion Irregular heart rate S/P endovascular aneurysm repair Acute URI Leg wound, left (Acute) Encounter for examination following treatment at hospital Cellulitis of left leg Status post left knee replacement (~03/2021) Presence of pessary Greater trochanteric bursitis of left hip Cellulitis of right lower extremity Loss of height Chronic otitis media of left ear Sensorineural hearing loss (SNHL) of left ear with restricted hearing of right ear Routine health maintenance Status post hip hemiarthroplasty (~02/2020) COPD (chronic obstructive pulmonary disease) (Chronic) Wheezing Hyperkeratosis (Acute) Atypical nevi (Acute) Back pain (Acute) Salmon-Walker grade 3 cystocele (Acute) Benign essential hypertension (Chronic) Hearing loss (Acute) Incomplete emptying of bladder (Acute) Intertrigo (Acute) Osteoporosis (Chronic) Pessary maintenance (Acute) Urge and stress incontinence (Acute) Urinary tract infection, recurrent (Acute) AAA (abdominal aortic aneurysm) (Chronic) AAA measuring 45 mm in diameter just above the bifurcation, a thrombus is noted in the aneurysm sac without significant stenosis of the luminal diameter per 04/24/22 CTA Abd/Pelvis Hyperlipidemia (Chronic) Shoulder pain, acute (Acute) Frailty Osteoporosis 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/p excision Hip fracture due to osteoporosis s/p surgical intervention Medical History History of multiple pulmonary nodules Presence of pessary Deafness in left ear Chronic back pain Osteoarthritis History of skin cancer Hyperlipidemia Hypertension H/O gastroesophageal reflux (GERD) Chronic obstructive pulmonary disease Surgical History History of hip surgery S/P AAA repair History of total knee arthroplasty History of open reduction and internal fixation (ORIF) procedure History of appendectomy History of colonoscopy History of cataract surgery History of tonsillectomy History of hysterectomy History of bladder surgery Family History Mother Colorectal cancer Hearing loss Cancer Denies family history of Ovarian cancer Prostate cancer No family history of adverse response to anesthesia No family history of bleeding disorder Heart disease Allergies Myocardial infarction Breast cancer Hypertension Asthma Social History Smoking Status: Unknown if ever smoked Tobacco Type: Cigarettes Second Hand Exposure: No; Do You Dip or Chew Tobacco: No; Hx Alcohol Use: No Hx Substance Use: No Preferred Language: Lao Communication Ability: Effective Communication Ability Comment: pt deaf in left ear, hearing aid in right Visual Impairment: No Limitations Hearing Ability: Hard of Hearing Supervisor [employer] Required: No Beliefs That Will Affect Care: None marital status: / Current Living Situation: Alone Current Living Situation Comment: son comes to visit 3 days per week current occupational status: retired How many Children do You have: 3 Feels Safe at Home: Yes Childhood Exposure to Second-Hand Smoke: No Diet: regular caffeine: Yes (Coffee ) during the past year weight has: remained stable Dental Care, Regularly: Yes Physical Activity Frequency: Daily Seatbelt Use: always Sunscreen Use: No Do you think of yourself as: straight/heterosexual Sexual Activity: has been sexually active, but not for at least 12 months Gender Identity: Female Assistive Devices: Cane, Glasses and Hearing Aid - Right Allergies Allergies Allergy/AdvReac Type Severity Reaction Status Date / Time Sulfa (Sulfonamide AdvReac Intermediate Severe Verified 07/03/24 18:01 Antibiotics) vomiting Home Meds Home Medications Medication Instructions Recorded Confirmed multivitamin 1 tab PO QAM 03/15/20 07/03/24 cannabidiol PO PRN 03/29/24 06/20/24 albuterol sulfate 90 mcg/actuation 2 puff inhalation QID PRN 07/03/24 07/03/24 aerosol inhaler Shortness Of Breath Previous Rx's Medication Instructions Recorded metoprolol succinate 25 mg 25 mg PO QAM #90 tabs 12/17/23 tablet,extended release 24 hr simvastatin 20 mg tablet 20 mg PO HS #90 tabs 01/11/24 amlodipine 5 mg tablet 5 mg PO QAM #90 tabs 02/01/24 methenamine hippurate 1 gram tablet 1 g PO QPM #90 tabs 02/17/24 denosumab 60 mg/mL subcutaneous 60 mg subcut UD #1 mL 05/16/24 syringe ([employer]) Results & Data (ED) Vital Signs Vital Signs - 24 hr 07/03/24 16:08 07/03/24 16:26 07/03/24 16:37 Temperature 36.6 C Temperature Source Oral Pulse Rate 87 87 Pulse Rate [Apical] Pulse Rhythm [Apical] Pulse Strength [Apical] Respiratory Rate 19 Respiratory Effort / Characteristics Non-Labored Spontaneous Respiratory Depth Normal Blood Pressure 170/91 H Blood Pressure [Right Arm] Blood Pressure Mean 117 Blood Pressure Mean [Right Arm] Blood Pressure Position [Right Arm] Pulse Oximetry 95 98 Oxygen Delivery Method Room Air Room Air Sepsis Recent Fever Within 48 Hours No Sepsis New/Unexplained Change in Mental Status N/A Sepsis Action Taken by Nursing No Action Required 07/03/24 17:50 Temperature Temperature Source Pulse Rate Pulse Rate [Apical] 78 Pulse Rhythm [Apical] Regular Pulse Strength [Apical] Normal Respiratory Rate 16 Respiratory Effort / Characteristics Non-Labored Respiratory Depth Normal Blood Pressure Blood Pressure [Right Arm] 170/90 H Blood Pressure Mean Blood Pressure Mean [Right Arm] 116 Blood Pressure Position [Right Arm] Lying Pulse Oximetry 97 Oxygen Delivery Method Room Air Sepsis Recent Fever Within 48 Hours Sepsis New/Unexplained Change in Mental Status Sepsis Action Taken by Nursing Laboratory Data 07/03/24 16:11 07/03/24 16:11 Lab Results 07/03/24 07/03/24 07/03/24 Range/Units 15:15 16:11 16:53 WBC 11.73 H (4.8-10.8) K/ul RBC 4.56 (4.20-5.40) M/uL Hgb 14.3 (12.0-16.0) g/dl Hct 41.5 (37.0-47.0) % MCV 91.0 (80.0-100.0) fL MCH 31.4 (25.0-34.0) pg MCHC 34.5 (32.0-36.0) g/dL RDW Std Deviation 43.9 (36.4-46.3) fL RDW Coeff of Spenser 13.3 (11.5-14.5) % Plt Count 193 (130-400) K/uL MPV 9.3 L (9.4-12.4) fL Immature Gran % (Auto) 0.3 % Neut % (Auto) 90.2 % Lymph % (Auto) 3.3 % Lares % (Auto) 6.1 % Eos % (Auto) 0.0 % Baso % (Auto) 0.1 % Neut # (Auto) 10.58 H (1.40-6.50) K/uL Lymph # (Auto) 0.39 L (1.20-3.40) K/uL Lares # (Auto) 0.71 H (0.11-0.59) K/uL Eos # (Auto) 0.00 (0.00-0.50) K/uL Baso # (Auto) 0.01 (0.00-0.20) K/uL Immature Gran # (Auto) 0.04 (0.01-0.20) K/uL PT 10.8 (9.0-12.0) Seconds INR 1.0 (0.9-1.1) Sodium 143 (136-145) mmol/L Potassium 3.8 (3.5-5.1) mmol/L Chloride 108 H (98-107) mmol/L Carbon Dioxide 25 (21-32) mmol/L Anion Gap 10 (3-11) BUN 30 H (6-23) mg/dl Creatinine 0.91 (0.6-1.2) mg/dl Est Cr Clr Drug Dosing 44.2 ml/min eGFR 60.68 BUN/Creatinine Ratio 33.0 H (10-20) Glucose 154 H (70-99(Fasting)) mg/dl Calcium 9.1 (8.6-10.3) mg/dl Total Bilirubin 1.2 H (0.2-1.0) mg/dl AST 78 H (13-39) U/L ALT 27 (7-52) U/L Alkaline Phosphatase 57 (34-104) U/L Total Creatine Kinase 3409 H (26-192) U/L Troponin I High Sens 59.2 H* (0-14) pg/ml Total Protein 7.1 (6.0-8.3) gm/dl Albumin 4.5 (3.4-5.0) gm/dl Globulin 2.6 (2.5-4.0) gm/dl Albumin/Globulin Ratio 1.7 (0.9-2) Urine Color Yellow Urine Appearance Clear (Clear) Urine pH 5.5 (4.5-7.5) Ur Specific [place] 1.019 (1.000-1.030) Urine Protein 1+ H (Negative) Urine Glucose (UA) Negative (Negative) Urine Ketones 1+ H (Negative) Urine Blood 3+ H (Negative) Urine Nitrite Positive A (Negative) Urine Bilirubin Negative (Negative) Urine Urobilinogen Negative (Negative) Ur Leukocyte Esterase 1+ H (Negative) Urine WBC (Auto) 6-10 H (0-5) /hpf Urine RBC (Auto) 0-2 (0-2) /hpf U Hyaline Cast (Auto) 3-5 H (0-2) /lpf U Epithel Cells (Auto) 3-5 H (0-2) /hpf Urine Bacteria (Auto) 3+ H (None Seen) SARS-CoV-2, RNA, NAAT NEGATIVE (NEGATIVE) 07/03/24 Range/Units 17:45 WBC (4.8-10.8) K/ul RBC (4.20-5.40) M/uL Hgb (12.0-16.0) g/dl Hct (37.0-47.0) % MCV (80.0-100.0) fL MCH (25.0-34.0) pg MCHC (32.0-36.0) g/dL RDW Std Deviation (36.4-46.3) fL RDW Coeff of Spenser (11.5-14.5) % Plt Count (130-400) K/uL MPV (9.4-12.4) fL Immature Gran % (Auto) % Neut % (Auto) % Lymph % (Auto) % Lares % (Auto) % Eos % (Auto) % Baso % (Auto) % Neut # (Auto) (1.40-6.50) K/uL Lymph # (Auto) (1.20-3.40) K/uL Lares # (Auto) (0.11-0.59) K/uL Eos # (Auto) (0.00-0.50) K/uL Baso # (Auto) (0.00-0.20) K/uL Immature Gran # (Auto) (0.01-0.20) K/uL PT (9.0-12.0) Seconds INR (0.9-1.1) Sodium (136-145) mmol/L Potassium (3.5-5.1) mmol/L Chloride (98-107) mmol/L Carbon Dioxide (21-32) mmol/L Anion Gap (3-11) BUN (6-23) mg/dl Creatinine (0.6-1.2) mg/dl Est Cr Clr Drug Dosing ml/min eGFR BUN/Creatinine Ratio (10-20) Glucose (70-99(Fasting)) mg/dl Calcium (8.6-10.3) mg/dl Total Bilirubin (0.2-1.0) mg/dl AST (13-39) U/L ALT (7-52) U/L Alkaline Phosphatase (34-104) U/L Total Creatine Kinase (26-192) U/L Troponin I High Sens 60.2 H* (0-14) pg/ml Total Protein (6.0-8.3) gm/dl Albumin (3.4-5.0) gm/dl Globulin (2.5-4.0) gm/dl Albumin/Globulin Ratio (0.9-2) Urine Color Urine Appearance (Clear) Urine pH (4.5-7.5) Ur Specific [place] (1.000-1.030) Urine Protein (Negative) Urine Glucose (UA) (Negative) Urine Ketones (Negative) Urine Blood (Negative) Urine Nitrite (Negative) Urine Bilirubin (Negative) Urine Urobilinogen (Negative) Ur Leukocyte Esterase (Negative) Urine WBC (Auto) (0-5) /hpf Urine RBC (Auto) (0-2) /hpf U Hyaline Cast (Auto) (0-2) /lpf U Epithel Cells (Auto) (0-2) /hpf Urine Bacteria (Auto) (None Seen) SARS-CoV-2, RNA, NAAT (NEGATIVE) Administered Medications Lactated Ringer's (Lr) 1,000 mls @ 125 mls/hr IV .Q8H STEFANIA Stop: 07/04/24 20:17 Last Admin: 07/03/24 20:33 Dose: 125 mls/hr Documented By: ANS Discontinued Medications Ceftriaxone Sodium (Rocephin) 2,000 mg in 50 mls @ 100 mls/hr IV NOW STA Stop: 07/03/24 17:26 Last Infusion: 07/03/24 17:28 Dose: Infused Documented By: Admin: 07/03/24 17:03 Dose: 100 mls/hr Documented By: MINAL Sodium Chloride (Nss) 1,000 mls @ 125 mls/hr IV .Q8H STEFANIA Stop: 07/04/24 17:14 Last Infusion: 07/03/24 20:37 Dose: Infused Documented By: Infusion: 07/03/24 20:37 Dose: 0 mls/hr Documented By: Admin: 07/03/24 17:23 Dose: 125 mls/hr Documented By: LAKESHAW Imaging Data Radiologist's Impression: Abdomen/Pelvis CT 07/03/24 16:04 EXAM: CT Abdomen and Pelvis Without Intravenous Contrast INDICATION: Trauma. TECHNIQUE: Assessment of intra-abdominal organ and aortic integrity limited in the absence of IV contrast. COMPARISON: 06/04/2022 FINDINGS: Limitations: None. Lung bases: No abnormality noted. Pleural space: No visualized pleural effusion or pneumothorax. Heart: No abnormality noted. Mediastinum: No abnormality noted. ABDOMEN: Liver: Lack of intravenous contrast limits detection of some masses. No abnormality noted. Gallbladder and bile ducts: Mildly dilated gallbladder. No calcified stones noted. No ductal dilatation. Pancreas: No pancreatic mass, calcification, inflammation or ductal dilation noted. Spleen: No significant abnormality noted. Adrenals: No significant abnormality noted. Kidneys and ureters: There is deformity of the lower pole of the left kidney with previously identified rim calcified structure no longer identified. There is mild right renal cortical scarring. No stone or hydronephrosis. No perinephric fluid. Stomach and bowel: Colonic diverticulosis without diverticulitis. No intestinal thickening or obstruction. PELVIS: Appendix: No findings to suggest acute appendicitis. Bladder: There is a catheter in the bladder which is decompressed and not assessed. Reproductive: Hysterectomy. Uterine pessary present. ABDOMEN and PELVIS: Intraperitoneal space: No free air. No significant fluid collection. Bones/joints: Left hip arthroplasty present. The spine is scoliotic. Multilevel moderate degenerative changes present. No spinal or pelvic fracture noted. Soft tissues: Probable small fat-containing right inguinal hernia. Vasculature: Aortobiiliac stent present with ectatic dilated more proximal aorta with moderate atherosclerosis. No hemorrhage. Lymph nodes: No pathologically enlarged lymph nodes. IMPRESSION: 1. Assessment limited in the setting of trauma in the absence of IV contrast. No traumatic change identified. 2. Previously seen rim calcified structure in the lower left kidney is not identified. There is bilateral renal scarring. 3. There is extensive colonic diverticulosis without diverticulitis. ACT 112: Negative or not required by law. Electronically signed by Pinky Blanco 07-03-2024 5:[address] 07/03/24 16:04 EXAM: CT Cervical Spine Without Intravenous Contrast INDICATION: Trauma. TECHNIQUE: Axial computed tomography images of the cervical spine without intravenous contrast. Sagittal and coronal reformatted images were created and reviewed. This CT exam was performed using one or more of the following dose reduction techniques: automated exposure control, adjustment of the mA and/or kV according to patient size, and/or use of iterative reconstruction technique. COMPARISON: No relevant prior studies available. FINDINGS: Limitations: None. Vertebrae: The bones are demineralized. There is diffuse mild facet hypertrophy. Mild to moderate spondylosis and uncal spurring noted C4-C7. No fracture identified. There is trace degenerative retrolisthesis of C4 with respect to the levels above and below. Discs/spinal canal/neural foramina: Moderate to space narrowing at multiple levels most notable C4-C7. There is central disc protrusion with ligamentous displacement C2-C3 without stenosis. Minimal central disc bulge C3-C4 without stenosis. There is bilateral foraminal stenosis C4-C5 and mild ventral canal stenosis. There is severe left foraminal stenosis C5-C6 and moderate right foraminal stenosis. There is posterior osteophyte disc complex with mild central canal stenosis. There is marked left foraminal stenosis C6-C7. Soft tissues: No significant abnormality noted. Vasculature: There is bilateral cervical internal carotid atherosclerosis. Lung apices: No significant abnormality noted. IMPRESSION: 1. No traumatic change. 2. Multilevel moderate degenerative changes. ACT 112: Negative or not required by law. Electronically signed by Pinky Blanco 07-03-2024 5:[address] 07/03/24 16:04 EXAM: CT Chest Without Intravenous Contrast INDICATION: Fall. TECHNIQUE: Aortic integrity is not optimally assessed in the absence of IV contrast. COMPARISON: Limited comparison made to CT abdomen including the lower chest 06/04/2022. FINDINGS: Limitations: None. Lungs and pleural spaces: There are nondependent mild groundglass opacities in the anterior upper lobes. Nodular subpleural scarring noted in the right upper lobe and left apex. There is a 2 mm noncalcified right upper lobe nodule series 10 image 77. Subpleural 3 mm right middle lobe pulmonary nodule series 10 image 106. 6 mm noncalcified right lower lobe nodule image 140. Stable subpleural right lower lobe nodule in the posterior costophrenic sulcus measures 1.4 x 0.8 cm image 180. Stable subpleural lateral right lower lobe noncalcified nodule measures 0.5 x 0.6 cm image 161. Subpleural anterior left upper lobe 3 mm nodule image 52. 2 mm pleural-based lateral left upper lobe noncalcified nodule image 122. 3 mm oval noncalcified lingular nodule image 156. No bronchiectasis, honeycombing or reticulation. No pleural effusion or pneumothorax. Heart: Cardiomegaly. No pericardial effusion. Mildly calcified aortic valve and moderate to severe calcific plaque in the coronary arteries. Thyroid: No abnormality noted. Bones/joints: There are age-indeterminate nondisplaced fractures of the right lateral 7th through 9th and left anterior fourth ribs. Old anterior left fifth rib fracture. Degenerative changes noted in the scoliotic spine. Degenerative changes present in each shoulder. Soft tissues: No significant abnormality noted. Vasculature: Atherosclerotic ectatic aorta. There is borderline dilatation of the ascending aorta to 4 cm. Lymph nodes: Borderline enlarged precarinal lymph node measures 1 cm short axis dimension. IMPRESSION: 1. Age-indeterminate nondisplaced right lateral 7th through 9th and left anterior fourth ribs. 2. There is nonspecific groundglass opacity in the upper lobes left greater than right most likely reflecting pneumonitis and could be on the basis of aspiration. Correlate clinically. 3. Multiple bilateral pulmonary nodules present measuring up to 1.4 cm. 2 of the right lower lobe nodules were seen previously and are stable (nodules on images 161 and 180). Follow-up CT in 6 months recommended to reassess nodules not seen on the prior study and the groundglass opacities in the upper lobes to assure resolution. 4. Mild dilatation of the ascending aorta of 4 cm. ACT 112: Positive. There are findings on this exam that require communication between the performing entity and the patient following Patient Test Result Information Act ([place] ACT 112) guidelines. Electronically signed by Pinky Blanco 07-03-2024 5:[address] 07/03/24 16:04 EXAM: CT Head Without Intravenous Contrast INDICATION: Fall. TECHNIQUE: Axial computed tomography images of the head/brain without intravenous contrast. Sagittal and/or coronal reformats are provided. Sagittal and coronal reformatted images were created and reviewed. This CT exam was performed using one or more of the following dose reduction techniques: automated exposure control, adjustment of the mA and/or kV according to patient size, and/or use of iterative reconstruction technique. COMPARISON: No relevant prior studies available. FINDINGS: Limitations: None. Brain and extra-axial spaces: There is age appropriate cortical atrophy and chronic ischemic periventricular white matter hypodensity. No acute infarct, hemorrhage or mass noted. Bones/joints: No acute changes. Soft tissues: No significant abnormality noted. Vasculature: No acute abnormality noted. Sinuses: There is chronic sclerosis of the left sphenoid sinus. There is mild chronic mucosal thickening posterior left ethmoid air cell. No sinus fluid. Mastoid air cells: There is mild chronic thickening of the left mastoid air cells. No mastoid effusion. Orbits: No significant abnormality noted. IMPRESSION: 1. Cerebral atrophy. No acute changes. 2. No acute abnormality. 3. Chronic left sphenoid sclerosis and left ethmoid mucosal thickening. ACT 112: Negative or not required by law. Electronically signed by Pinky Blanco 07-03-2024 4:55 PM Discharge Plan Visit Data Chief Complaint: Hip Pain Stated Complaint: HIP PAIN ED Provider: Lee Soriano Discharge Problem: Fall, Acute UTI, Rhabdomyolysis Patient Disposition: Admitted As Inpatient Discharge Instructions Interventions: ED Discharge Assessment Last Done: 07/03/24 19:48 Discharge Problem: Fall Qualifiers: Encounter type: initial encounter Qualified Code(s): W19.XXXA - Unspecified fall, initial encounter Rhabdomyolysis Qualifiers: Rhabdomyolysis type: traumatic Encounter type: initial encounter Qualified Code(s): T79.6XXA - Traumatic ischemia of muscle, initial encounter
[2024-07-03 16:25] LABS: Appearance Urine Clear (Clear); Bacteria Urine Automated 3+ (None Seen); Bilirubin Urine Negative (Negative); Blood Urine 3+ (Negative); Color Urine Yellow; Glucose Urine UA Negative (Negative); Ketones Urine 1+ (Negative); Leukocyte Esterase Urine 1+ (Negative); Nitrite Urine Positive (Negative); Protein Urine 1+ (Negative); RBC Urine Automated 0-2 /hpf (0-2); Specific Gravity Urine 1.019 (1.000-1.030); Urobilinogen Urine Negative (Negative); pH Urine 5.5 (4.5-7.5)
[2024-07-03 16:26] LABS: Hematocrit (blood only) 41.5 % (37.0-47.0); Hemoglobin 14.3 g/dl (12.0-16.0); Mean Corpuscular Hemoglobin 31.4 pg (25.0-34.0); Mean Corpuscular Hgb Conc 34.5 g/dL (32.0-36.0); Mean Platelet Volume 9.3 fL (9.4-12.4); Platelet Count 193 K/uL (130-400); RDW Coefficient of Variation 13.3 % (11.5-14.5); RDW Standard Deviation 43.9 fL (36.4-46.3); Red Blood Count 4.56 M/uL (4.20-5.40); White Blood Count 11.73 K/ul (4.8-10.8)
[2024-07-03 16:45] LABS: Calcium 9.1 mg/dl (8.6-10.3); Creatinine Clr Calc Pharmacy 44.2 ml/min; Potassium 3.8 mmol/L (3.5-5.1)
[2024-07-03 16:47] LABS: Basophils # (auto) 0.01 K/uL (0.00-0.20); Basophils % (auto) 0.1 %; Immature Granulocytes # (auto) 0.04 K/uL (0.01-0.20); Immature Granulocytes % (auto) 0.3 %; Lymphocytes # (auto) 0.39 K/uL (1.20-3.40); Lymphocytes % (auto) 3.3 %; Monocytes # (auto) 0.71 K/uL (0.11-0.59); Monocytes % (auto) 6.1 %; Neutrophils # (auto) 10.58 K/uL (1.40-6.50); Neutrophils % (auto) 90.2 %
[2024-07-03 16:54] LABS: Prothrombin Time 10.8 Seconds (9.0-12.0); Troponin I High Sensitivity 59.2 pg/ml (0-14)
--- NOTE | 2024-07-03 16:56 | CT Scan Report ---
EXAM: CT Head Without Intravenous Contrast INDICATION: Fall. TECHNIQUE: Axial computed tomography images of the head/brain without intravenous contrast. Sagittal and/or coronal reformats are provided. Sagittal and coronal reformatted images were created and reviewed. This CT exam was performed using one or more of the following dose reduction techniques: automated exposure control, adjustment of the mA and/or kV according to patient size, and/or use of iterative reconstruction technique. COMPARISON: No relevant prior studies available. FINDINGS: Limitations: None. Brain and extra-axial spaces: There is age appropriate cortical atrophy and chronic ischemic periventricular white matter hypodensity. No acute infarct, hemorrhage or mass noted. Bones/joints: No acute changes. Soft tissues: No significant abnormality noted. Vasculature: No acute abnormality noted. Sinuses: There is chronic sclerosis of the left sphenoid sinus. There is mild chronic mucosal thickening posterior left ethmoid air cell. No sinus fluid. Mastoid air cells: There is mild chronic thickening of the left mastoid air cells. No mastoid effusion. Orbits: No significant abnormality noted. IMPRESSION: 1. Cerebral atrophy. No acute changes. 2. No acute abnormality. 3. Chronic left sphenoid sclerosis and left ethmoid mucosal thickening. ACT 112: Negative or not required by law. Electronically signed by Pinky Blanco 07-03-2024 4:55 PM
[2024-07-03 17:02] LABS: Albumin Globulin Ratio 1.7 (0.9-2); Albumin Level 4.5 gm/dl (3.4-5.0); Bilirubin,Total 1.2 mg/dl (0.2-1.0); Globulin 2.6 gm/dl (2.5-4.0); Total Protein 7.1 gm/dl (6.0-8.3)
[2024-07-03] MEDS: cefTRIAXone SODIUM 2,000 MG/50 ML BAG IV STA (17:03)
--- NOTE | 2024-07-03 17:11 | CT Scan Report ---
EXAM: CT Chest Without Intravenous Contrast INDICATION: Fall. TECHNIQUE: Aortic integrity is not optimally assessed in the absence of IV contrast. COMPARISON: Limited comparison made to CT abdomen including the lower chest 06/04/2022. FINDINGS: Limitations: None. Lungs and pleural spaces: There are nondependent mild groundglass opacities in the anterior upper lobes. Nodular subpleural scarring noted in the right upper lobe and left apex. There is a 2 mm noncalcified right upper lobe nodule series 10 image 77. Subpleural 3 mm right middle lobe pulmonary nodule series 10 image 106. 6 mm noncalcified right lower lobe nodule image 140. Stable subpleural right lower lobe nodule in the posterior costophrenic sulcus measures 1.4 x 0.8 cm image 180. Stable subpleural lateral right lower lobe noncalcified nodule measures 0.5 x 0.6 cm image 161. Subpleural anterior left upper lobe 3 mm nodule image 52. 2 mm pleural-based lateral left upper lobe noncalcified nodule image 122. 3 mm oval noncalcified lingular nodule image 156. No bronchiectasis, honeycombing or reticulation. No pleural effusion or pneumothorax. Heart: Cardiomegaly. No pericardial effusion. Mildly calcified aortic valve and moderate to severe calcific plaque in the coronary arteries. Thyroid: No abnormality noted. Bones/joints: There are age-indeterminate nondisplaced fractures of the right lateral 7th through 9th and left anterior fourth ribs. Old anterior left fifth rib fracture. Degenerative changes noted in the scoliotic spine. Degenerative changes present in each shoulder. Soft tissues: No significant abnormality noted. Vasculature: Atherosclerotic ectatic aorta. There is borderline dilatation of the ascending aorta to 4 cm. Lymph nodes: Borderline enlarged precarinal lymph node measures 1 cm short axis dimension. IMPRESSION: 1. Age-indeterminate nondisplaced right lateral 7th through 9th and left anterior fourth ribs. 2. There is nonspecific groundglass opacity in the upper lobes left greater than right most likely reflecting pneumonitis and could be on the basis of aspiration. Correlate clinically. 3. Multiple bilateral pulmonary nodules present measuring up to 1.4 cm. 2 of the right lower lobe nodules were seen previously and are stable (nodules on images 161 and 180). Follow-up CT in 6 months recommended to reassess nodules not seen on the prior study and the groundglass opacities in the upper lobes to assure resolution. 4. Mild dilatation of the ascending aorta of 4 cm. ACT 112: Positive. There are findings on this exam that require communication between the performing entity and the patient following Patient Test Result Information Act ([place] ACT 112) guidelines. Electronically signed by Pinky Blanco 07-03-2024 5:11 PM
--- NOTE | 2024-07-03 17:19 | CT Scan Report ---
EXAM: CT Abdomen and Pelvis Without Intravenous Contrast INDICATION: Trauma. TECHNIQUE: Assessment of intra-abdominal organ and aortic integrity limited in the absence of IV contrast. COMPARISON: 06/04/2022 FINDINGS: Limitations: None. Lung bases: No abnormality noted. Pleural space: No visualized pleural effusion or pneumothorax. Heart: No abnormality noted. Mediastinum: No abnormality noted. ABDOMEN: Liver: Lack of intravenous contrast limits detection of some masses. No abnormality noted. Gallbladder and bile ducts: Mildly dilated gallbladder. No calcified stones noted. No ductal dilatation. Pancreas: No pancreatic mass, calcification, inflammation or ductal dilation noted. Spleen: No significant abnormality noted. Adrenals: No significant abnormality noted. Kidneys and ureters: There is deformity of the lower pole of the left kidney with previously identified rim calcified structure no longer identified. There is mild right renal cortical scarring. No stone or hydronephrosis. No perinephric fluid. Stomach and bowel: Colonic diverticulosis without diverticulitis. No intestinal thickening or obstruction. PELVIS: Appendix: No findings to suggest acute appendicitis. Bladder: There is a catheter in the bladder which is decompressed and not assessed. Reproductive: Hysterectomy. Uterine pessary present. ABDOMEN and PELVIS: Intraperitoneal space: No free air. No significant fluid collection. Bones/joints: Left hip arthroplasty present. The spine is scoliotic. Multilevel moderate degenerative changes present. No spinal or pelvic fracture noted. Soft tissues: Probable small fat-containing right inguinal hernia. Vasculature: Aortobiiliac stent present with ectatic dilated more proximal aorta with moderate atherosclerosis. No hemorrhage. Lymph nodes: No pathologically enlarged lymph nodes. IMPRESSION: 1. Assessment limited in the setting of trauma in the absence of IV contrast. No traumatic change identified. 2. Previously seen rim calcified structure in the lower left kidney is not identified. There is bilateral renal scarring. 3. There is extensive colonic diverticulosis without diverticulitis. ACT 112: Negative or not required by law. Electronically signed by Pinky Blanco 07-03-2024 5:19 PM
[2024-07-03] MEDS: SODIUM CHLORIDE 0.9% 1,000 ML IV SCH (17:23)
--- NOTE | 2024-07-03 17:24 | CT Scan Report ---
EXAM: CT Cervical Spine Without Intravenous Contrast INDICATION: Trauma. TECHNIQUE: Axial computed tomography images of the cervical spine without intravenous contrast. Sagittal and coronal reformatted images were created and reviewed. This CT exam was performed using one or more of the following dose reduction techniques: automated exposure control, adjustment of the mA and/or kV according to patient size, and/or use of iterative reconstruction technique. COMPARISON: No relevant prior studies available. FINDINGS: Limitations: None. Vertebrae: The bones are demineralized. There is diffuse mild facet hypertrophy. Mild to moderate spondylosis and uncal spurring noted C4-C7. No fracture identified. There is trace degenerative retrolisthesis of C4 with respect to the levels above and below. Discs/spinal canal/neural foramina: Moderate to space narrowing at multiple levels most notable C4-C7. There is central disc protrusion with ligamentous displacement C2-C3 without stenosis. Minimal central disc bulge C3-C4 without stenosis. There is bilateral foraminal stenosis C4-C5 and mild ventral canal stenosis. There is severe left foraminal stenosis C5-C6 and moderate right foraminal stenosis. There is posterior osteophyte disc complex with mild central canal stenosis. There is marked left foraminal stenosis C6-C7. Soft tissues: No significant abnormality noted. Vasculature: There is bilateral cervical internal carotid atherosclerosis. Lung apices: No significant abnormality noted. IMPRESSION: 1. No traumatic change. 2. Multilevel moderate degenerative changes. ACT 112: Negative or not required by law. Electronically signed by Pinky Blanco 07-03-2024 5:23 PM
--- NOTE | 2024-07-03 18:25 | History & Physical Report ---
Date of Service July 03, 2024 Assessment & Plan (1) Rhabdomyolysis: Plan: Repeat CK with AM labs LR @ 125ml/hr overnight (2) Acute UTI: Plan: No specific urinary symptoms but more confused than baseline Ceftriaxone 2g IV Follow up urine culture (3) Fall: Plan: Unwitnessed. Unclear circumstances surrounding fall or when it happened but reportedly clearing up Halloween decorations Follow up offical reports on Hip XR and CXR PT/OT (4) Elevated troponin: Plan: Stable without chest pain - do not suspect ACS Suspect demand-ischemia given etiology above Plan HTN - continue amlodipine and metoprolol Hyperlipidemia - hold simvastatin in setting of rhabdomyolysis VTE Prophylaxis - Lovenox 40mg SQ daily Diet - regular Disposition - admit to med/surg Admission and Anticipated Discharge Date Admission Date: July 03, 2024 History of Present Illness Chief Complaint: Fall Primary Care Provider: Pavithra Segovia MD Rachelle Espinosa is an 89 year old female who presents to the ER after an unwitnessed ground level fall. She is unable to tell me when this fall happened or how it happened. She was found by her son and was reportedly taking down Halloween decorations. She denies any pain to me although was complaining of right hip pain to EMS. Her son at bedside reports she is more confused than her baseline but remains orientated x3. She lives alone but has regular visits from her family. She does not fall regularly and her son can only remember one other occasion she fell. No fever, chills, respiratory, gastrointestinal, or urinary complaints. Last known well was Thursday. Allergies Allergy/AdvReac Type Severity Reaction Status Date / Time Sulfa (Sulfonamide AdvReac Intermediate Severe Verified 07/03/24 18:01 Antibiotics) vomiting Home Medications Medication Instructions Recorded Confirmed Type multivitamin 1 tab PO QAM 03/15/20 07/03/24 History metoprolol succinate 25 mg 25 mg PO QAM #90 tabs 12/17/23 07/03/24 Rx tablet,extended release 24 hr simvastatin 20 mg tablet 20 mg PO HS #90 tabs 01/11/24 07/03/24 Rx amlodipine 5 mg tablet 5 mg PO QAM #90 tabs 02/01/24 07/03/24 Rx methenamine hippurate 1 gram tablet 1 g PO QPM #90 tabs 02/17/24 07/03/24 Rx cannabidiol PO PRN 03/29/24 06/20/24 History denosumab 60 mg/mL subcutaneous 60 mg subcut UD #1 mL 05/16/24 07/03/24 Rx syringe (Prolia) albuterol sulfate 90 mcg/actuation 2 puff inhalation QID PRN 07/03/24 07/03/24 History aerosol inhaler Shortness Of Breath Past Med/Surg History Problem List Elevated troponin Rhabdomyolysis (Acute) Acute UTI (Acute) Fall (Acute) Rectal bleeding Osteoarthritis of right knee Vitamin D deficiency Dyspnea on exertion Irregular heart rate S/P endovascular aneurysm repair Acute URI Leg wound, left (Acute) Encounter for examination following treatment at hospital Cellulitis of left leg Status post left knee replacement (~03/2021) Presence of pessary Greater trochanteric bursitis of left hip Cellulitis of right lower extremity Loss of height Chronic otitis media of left ear Sensorineural hearing loss (SNHL) of left ear with restricted hearing of right ear Routine health maintenance Status post hip hemiarthroplasty (~02/2020) COPD (chronic obstructive pulmonary disease) (Chronic) Wheezing Hyperkeratosis (Acute) Atypical nevi (Acute) Back pain (Acute) [place]-Walker grade 3 cystocele (Acute) Benign essential hypertension (Chronic) Hearing loss (Acute) Incomplete emptying of bladder (Acute) Intertrigo (Acute) Osteoporosis (Chronic) Pessary maintenance (Acute) Urge and stress incontinence (Acute) Urinary tract infection, recurrent (Acute) AAA (abdominal aortic aneurysm) (Chronic) AAA measuring 45 mm in diameter just above the bifurcation, a thrombus is noted in the aneurysm sac without significant stenosis of the luminal diameter per 04/24/22 CTA Abd/Pelvis Hyperlipidemia (Chronic) Shoulder pain, acute (Acute) Frailty Osteoporosis 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/p excision Hip fracture due to osteoporosis s/p surgical intervention Medical History History of multiple pulmonary nodules Presence of pessary Deafness in left ear Chronic back pain Osteoarthritis History of skin cancer Hyperlipidemia Hypertension H/O gastroesophageal reflux (GERD) Chronic obstructive pulmonary disease Surgical History History of hip surgery S/P AAA repair History of total knee arthroplasty History of open reduction and internal fixation (ORIF) procedure History of appendectomy History of colonoscopy History of cataract surgery History of tonsillectomy History of hysterectomy History of bladder surgery Family History Mother Colorectal cancer Hearing loss Cancer Denies family history of Ovarian cancer Prostate cancer No family history of adverse response to anesthesia No family history of bleeding disorder Heart disease Allergies Myocardial infarction Breast cancer Hypertension Asthma Social History Smoking Status: Former smoker Tobacco Type: Cigarettes Second Hand Exposure: Yes; Do You Dip or Chew Tobacco: No; Tobacco Cessation Education Requested by Patient: No Hx Alcohol Use: No Hx Substance Use: No Preferred Language: Jordanian Communication Ability: Effective Communication Ability Comment: pt deaf in left ear, hearing aid in right Visual Impairment: No Limitations Hearing Ability: Hard of Hearing Junk Removal Specialist Required: No Beliefs That Will Affect Care: None marital status: / Current Living Situation: Alone Current Living Situation Comment: son comes to visit 3 days per week current occupational status: retired How many Children do You have: 3 Other Information That Helps Us Care for You: No Feels Safe at Home: Yes Safety Concerns: Feels Safe At This Time Childhood Exposure to Second-Hand Smoke: No Diet: regular caffeine: Yes (Coffee ) during the past year weight has: remained stable Dental Care, Regularly: Yes Physical Activity Frequency: Daily Seatbelt Use: always Sunscreen Use: No Do you think of yourself as: straight/heterosexual Sexual Activity: has been sexually active, but not for at least 12 months Gender Identity: Female Assistive Devices: Cane, Hearing Aid - Bilateral and Walker Assistive Devices Comment: does not have hearing aides currently. Son will bring them back in on 07/04 Review of Systems Review of Systems: All systems reviewed & are unremarkable except as noted in HPI & below Physical Exam Constitutional: WD/WN, vitals as above Eyes: PERRL, conjunctivae normal, anicteric sclerae ENMT: Mouth: + dry oral mucous membranes Respiratory: normal respiratory effort, lungs clear to auscultation Cardiovascular: RRR, no murmur, no edema Gastrointestinal (Abdomen): normal bowel sounds, soft, nontender, no hepatosplenomegaly Musculoskeletal: no cyanosis or clubbing, extremities motor strength 5/5 Skin: no rashes, warm and dry Neurologic: moves all extremities and awake; no focal motor deficits and not confused Psychiatric: A+Ox3, euthymic affect Genitourinary: no CVA tenderness Results & Data Results & Data Vital Signs (Past 12 Hours) Vital Signs Temp Pulse Pulse Resp BP BP Pulse Ox 07/03/24 17:50 78 16 170/90 H 97 07/03/24 16:37 98 07/03/24 16:26 87 07/03/24 16:08 36.6 C 87 19 170/91 H 95 O2 Del Method 07/03/24 17:50 Room Air 07/03/24 16:37 Room Air 07/03/24 16:26 07/03/24 16:08 Room Air Laboratory Results Abnormal lab results 07/03/24 07/03/24 07/03/24 Range/Units 15:15 16:11 17:45 WBC 11.73 H (4.8-10.8) K/ul RBC (4.20-5.40) M/uL RDW Std Deviation (36.4-46.3) fL MPV 9.3 L (9.4-12.4) fL Neut # (Auto) 10.58 H (1.40-6.50) K/uL Lymph # (Auto) 0.39 L (1.20-3.40) K/uL [place] # (Auto) 0.71 H (0.11-0.59) K/uL Chloride 108 H (98-107) mmol/L BUN 30 H (6-23) mg/dl BUN/Creatinine Ratio 33.0 H (10-20) Glucose 154 H (70-99(Fasting)) mg/dl Total Bilirubin 1.2 H (0.2-1.0) mg/dl AST 78 H (13-39) U/L Total Creatine Kinase 3409 H (26-192) U/L Troponin I High Sens 59.2 H* 60.2 H* (0-14) pg/ml Urine Protein 1+ H (Negative) Urine Ketones 1+ H (Negative) Urine Blood 3+ H (Negative) Urine Nitrite Positive A (Negative) Ur Leukocyte Esterase 1+ H (Negative) Urine WBC (Auto) 6-10 H (0-5) /hpf U Hyaline Cast (Auto) 3-5 H (0-2) /lpf U Epithel Cells (Auto) 3-5 H (0-2) /hpf Urine Bacteria (Auto) 3+ H (None Seen) Diagnostic Findings EXAM: CT Head Without Intravenous Contrast INDICATION: Fall. TECHNIQUE: Axial computed tomography images of the head/brain without intravenous contrast. Sagittal and/or coronal reformats are provided. Sagittal and coronal reformatted images were created and reviewed. This CT exam was performed using one or more of the following dose reduction techniques: automated exposure control, adjustment of the mA and/or kV according to patient size, and/or use of iterative reconstruction technique. COMPARISON: No relevant prior studies available. FINDINGS: Limitations: None. Brain and extra-axial spaces: There is age appropriate cortical atrophy and chronic ischemic periventricular white matter hypodensity. No acute infarct, hemorrhage or mass noted. Bones/joints: No acute changes. Soft tissues: No significant abnormality noted. Vasculature: No acute abnormality noted. Sinuses: There is chronic sclerosis of the left sphenoid sinus. There is mild chronic mucosal thickening posterior left ethmoid air cell. No sinus fluid. Mastoid air cells: There is mild chronic thickening of the left mastoid air cells. No mastoid effusion. Orbits: No significant abnormality noted. IMPRESSION: 1. Cerebral atrophy. No acute changes. 2. No acute abnormality. 3. Chronic left sphenoid sclerosis and left ethmoid mucosal thickening. Hip XR and Chest XR not yet reported although no fracture seen or pneumonia per my read Medications Administered ER Medications Given: Ceftriaxone 2000mg IV NSS @125ml/hr ECG Rate (beats per minute): 83 Rhythm: normal sinus Findings: + other (T wave flattening in inferior leads), + 1st degree AV block and + T-wave inversion Comparison ECG Date: from (May 02, 2022) Change: the following changes noted (T wave changes are new) Code Status & VTE Plan Code Status Full VTE Prophylaxis Plan VTE Prophylaxis will be ordered: Yes PG Care Time/CCT Total # of Minutes Spent Total Time Spent with Patient: Total time spent is greater than 50% in coordination of care (as documented) at patient's floor/unit and/or counseling patient: Coding Level of Care Code 82189 INT INP/OBS CARE MIN Diagnoses Rhabdomyolysis T79.6XXA Encounter type: initial encounter Rhabdomyolysis type: traumatic Acute UTI N39.0 Fall W19.XXXA Encounter type: initial encounter Elevated troponin R79.89 (1) Rhabdomyolysis Encounter type: initial encounter Rhabdomyolysis type: traumatic Qualified Code(s): T79.6XXA - Traumatic ischemia of muscle, initial encounter (3) Fall Encounter type: initial encounter Qualified Code(s): W19.XXXA - Unspecified fall, initial encounter
[2024-07-03] MEDS: LACTATED RINGER'S 1,000 ML IV SCH (20:33)
--- NOTE | 2024-07-03 21:28 | XRay Report ---
EXAM: X-ray chest one-view portable CLINICAL HISTORY: Fall Limited range of motion PRIORS: 05/02/2022, 03/26/2021 TECHNIQUE: Portable frontal view chest supine FINDINGS: The chest is well-expanded. No airspace consolidation, effusion or congestive changes. Heart size is top normal. No pneumothorax. Moderate atherosclerotic disease of the aortic knob present. Trachea is patent. Osseous structures demonstrate no acute abnormality. No radiopaque foreign body. IMPRESSION: No plain film evidence of an acute cardiopulmonary process. Electronically signed by Frida Du 07-03-2024 5:33 PM
--- NOTE | 2024-07-03 21:28 | XRay Report ---
EXAMINATION: X-ray hip right 2 view with pelvis CLINICAL HISTORY: Fall PRIORS: None TECHNIQUE: AP view pelvis, 2 views right hip FINDINGS: Overlying bowel gas and stool obscures fine bone detail. A left total hip arthroplasty within the [id number]. Vascular stents in the lower abdomen. Vascular calcifications present. Moderate osseous demineralization is noted. Allowing for this, no displaced fracture or dislocation. Obturator rings are unremarkable. Pubic symphysis is not widened. Sacroiliac joints are patent. Visualized left total hip arthroplasty is unremarkable. IMPRESSION: No plain film evidence of an acute osseous abnormality. Electronically signed by Frida Du 07-03-2024 5:36 PM
[2024-07-04 06:23] LABS: Basophils # (auto) 0.03 K/uL (0.00-0.20); Basophils % (auto) 0.4 %; Eosinophils # (auto) 0.01 K/uL (0.00-0.50); Eosinophils % (auto) 0.1 %; Hematocrit (blood only) 37.1 % (37.0-47.0); Hemoglobin 12.6 g/dl (12.0-16.0); Immature Granulocytes # (auto) 0.02 K/uL (0.01-0.20); Immature Granulocytes % (auto) 0.2 %; Lymphocytes # (auto) 0.86 K/uL (1.20-3.40); Lymphocytes % (auto) 10.1 %; Mean Corpuscular Hemoglobin 31.2 pg (25.0-34.0); Mean Corpuscular Volume 91.8 fL (80.0-100.0); Mean Platelet Volume 9.7 fL (9.4-12.4); Monocytes % (auto) 10.6 %; Neutrophils # (auto) 6.66 K/uL (1.40-6.50); Neutrophils % (auto) 78.6 %; Platelet Count 168 K/uL (130-400); RDW Coefficient of Variation 13.8 % (11.5-14.5); RDW Standard Deviation 46.4 fL (36.4-46.3); Red Blood Count 4.04 M/uL (4.20-5.40); White Blood Count 8.48 K/ul (4.8-10.8)
[2024-07-04 06:57] LABS: BUN Creatinine Ratio 32.9 (10-20); Calcium 8.4 mg/dl (8.6-10.3); Creatinine Clr Calc Pharmacy 49.6 ml/min; Potassium 3.5 mmol/L (3.5-5.1)
[2024-07-04] MEDS: METOPROLOL SUCC 25MG EXT REL TAB PO SCH (08:34)
[2024-07-04] MEDS: amLODIPine BESYLATE 5 MG TAB PO SCH (08:34)
[2024-07-04] MEDS: MULTIVITAMIN TAB PO SCH (08:34)
--- NOTE | 2024-07-04 09:07 | Electrocardiogram Report ---
Test Reason : Blood Pressure : */* mmHG Vent. Rate : 83 BPM Atrial Rate : 83 BPM P-R Int : 236 ms QRS Dur : 92 ms QT Int : 408 ms P-R-T Axes : 75 12 78 degrees QTcB Int : 479 ms Sinus rhythm with 1st degree A-V block with occasional Premature ventricular complexes Abnormal ECG When compared with ECG of 02-May-2022 09:33, Premature ventricular complexes are now Present Vent. rate has increased by 30 bpm Nonspecific T wave abnormality now evident in Inferior leads T wave inversion now evident in Anterolateral leads Confirmed by Adilia Hunter ([place]) on 07/04/2024 9:06:39 AM Referred By: REFERRED SELF Confirmed By: Adilia Hunter
[2024-07-04] MEDS: ENOXAPARIN INJ 40 MG/0.4 ML SYR SQ SCH (09:45)
--- NOTE | 2024-07-04 17:07 | Hospitalist Progress Note ---
Date of Service July 04, 2024 Assessment & Plan (1) Rhabdomyolysis: Plan: Repeat CK trending down. Now in the 1999' range LR @ 125ml/hr to be continued until runs out after 24 hours. Encourage p.o. fluid intake. (2) Acute UTI: Plan: No specific urinary symptoms but more confused than baseline Ceftriaxone 2g IV Urine culture growing E. coli. Will follow sensitivities. (3) Fall: Plan: Unwitnessed. Unclear circumstances surrounding fall or when it happened but reportedly clearing up Halloween decorations Hip x-ray and chest x-ray negative for fractures. PT/OT (4) Elevated troponin: Plan: Stable without chest pain - do not suspect ACS Suspect demand-ischemia given etiology above Plan HTN - continue amlodipine and metoprolol Hyperlipidemia - hold simvastatin in setting of rhabdomyolysis VTE Prophylaxis - Lovenox 40mg SQ daily Diet - regular Admission and Anticipated Discharge Date Admission Date: July 03, 2024 Subjective Patient was seen at 10:40 AM. She feels better overall. Denies chest pain or shortness of breath. She says that she is feeling weak. She is accompanied by her son in the room Review of Systems Review of Systems: All systems reviewed & are unremarkable except as noted in Subjective Physical Exam Physical Exam: General: Awake, conversant Heart: S1, S2/regular rate and rhythm, no murmur rubs or gallops Lungs: Clear to auscultation bilaterally. Normal effort Abdomen: Soft/nontender/nondistended. No hepatosplenomegaly Extremities: No clubbing/cyanosis. No edema Behavior: Appropriate, cooperative Results & Data Results & Data Vital Signs (Past 12 Hours) Vital Signs Temp Pulse Resp BP Pulse Ox O2 Del Method 07/04/24 13:27 37.2 C 74 14 142/80 H 93 Room Air 07/04/24 07:45 36.7 C 76 16 172/82 H 94 Room Air 07/04/24 07:10 Room Air Laboratory Results Abnormal lab results 07/03/24 07/04/24 Range/Units 17:45 05:23 RBC 4.04 L (4.20-5.40) M/uL RDW Std Deviation 46.4 H (36.4-46.3) fL Neut # (Auto) 6.66 H (1.40-6.50) K/uL Lymph # (Auto) 0.86 L (1.20-3.40) K/uL [place] # (Auto) 0.90 H (0.11-0.59) K/uL Chloride 111 H (98-107) mmol/L BUN 27 H (6-23) mg/dl BUN/Creatinine Ratio 32.9 H (10-20) Calcium 8.4 L (8.6-10.3) mg/dl Total Creatine Kinase 2247 H (26-192) U/L Troponin I High Sens 60.2 H* (0-14) pg/ml Diagnostic Findings Abdomen/Pelvis CT 07/03/24 16:04 EXAM: CT Abdomen and Pelvis Without Intravenous Contrast INDICATION: Trauma. TECHNIQUE: Assessment of intra-abdominal organ and aortic integrity limited in the absence of IV contrast. COMPARISON: 06/04/2022 FINDINGS: Limitations: None. Lung bases: No abnormality noted. Pleural space: No visualized pleural effusion or pneumothorax. Heart: No abnormality noted. Mediastinum: No abnormality noted. ABDOMEN: Liver: Lack of intravenous contrast limits detection of some masses. No abnormality noted. Gallbladder and bile ducts: Mildly dilated gallbladder. No calcified stones noted. No ductal dilatation. Pancreas: No pancreatic mass, calcification, inflammation or ductal dilation noted. Spleen: No significant abnormality noted. Adrenals: No significant abnormality noted. Kidneys and ureters: There is deformity of the lower pole of the left kidney with previously identified rim calcified structure no longer identified. There is mild right renal cortical scarring. No stone or hydronephrosis. No perinephric fluid. Stomach and bowel: Colonic diverticulosis without diverticulitis. No intestinal thickening or obstruction. PELVIS: Appendix: No findings to suggest acute appendicitis. Bladder: There is a catheter in the bladder which is decompressed and not assessed. Reproductive: Hysterectomy. Uterine pessary present. ABDOMEN and PELVIS: Intraperitoneal space: No free air. No significant fluid collection. Bones/joints: Left hip arthroplasty present. The spine is scoliotic. Multilevel moderate degenerative changes present. No spinal or pelvic fracture noted. Soft tissues: Probable small fat-containing right inguinal hernia. Vasculature: Aortobiiliac stent present with ectatic dilated more proximal aorta with moderate atherosclerosis. No hemorrhage. Lymph nodes: No pathologically enlarged lymph nodes. IMPRESSION: 1. Assessment limited in the setting of trauma in the absence of IV contrast. No traumatic change identified. 2. Previously seen rim calcified structure in the lower left kidney is not identified. There is bilateral renal scarring. 3. There is extensive colonic diverticulosis without diverticulitis. ACT 112: Negative or not required by law. Electronically signed by Pinky Blanco 07-03-2024 5:[address] 07/03/24 16:04 EXAM: CT Cervical Spine Without Intravenous Contrast INDICATION: Trauma. TECHNIQUE: Axial computed tomography images of the cervical spine without intravenous contrast. Sagittal and coronal reformatted images were created and reviewed. This CT exam was performed using one or more of the following dose reduction techniques: automated exposure control, adjustment of the mA and/or kV according to patient size, and/or use of iterative reconstruction technique. COMPARISON: No relevant prior studies available. FINDINGS: Limitations: None. Vertebrae: The bones are demineralized. There is diffuse mild facet hypertrophy. Mild to moderate spondylosis and uncal spurring noted C4-C7. No fracture identified. There is trace degenerative retrolisthesis of C4 with respect to the levels above and below. Discs/spinal canal/neural foramina: Moderate to space narrowing at multiple levels most notable C4-C7. There is central disc protrusion with ligamentous displacement C2-C3 without stenosis. Minimal central disc bulge C3-C4 without stenosis. There is bilateral foraminal stenosis C4-C5 and mild ventral canal stenosis. There is severe left foraminal stenosis C5-C6 and moderate right foraminal stenosis. There is posterior osteophyte disc complex with mild central canal stenosis. There is marked left foraminal stenosis C6-C7. Soft tissues: No significant abnormality noted. Vasculature: There is bilateral cervical internal carotid atherosclerosis. Lung apices: No significant abnormality noted. IMPRESSION: 1. No traumatic change. 2. Multilevel moderate degenerative changes. ACT 112: Negative or not required by law. Electronically signed by Pinky Blanco 07-03-2024 5:[address] 07/03/24 16:04 EXAM: CT Chest Without Intravenous Contrast INDICATION: Fall. TECHNIQUE: Aortic integrity is not optimally assessed in the absence of IV contrast. COMPARISON: Limited comparison made to CT abdomen including the lower chest 06/04/2022. FINDINGS: Limitations: None. Lungs and pleural spaces: There are nondependent mild groundglass opacities in the anterior upper lobes. Nodular subpleural scarring noted in the right upper lobe and left apex. There is a 2 mm noncalcified right upper lobe nodule series 10 image 77. Subpleural 3 mm right middle lobe pulmonary nodule series 10 image 106. 6 mm noncalcified right lower lobe nodule image 140. Stable subpleural right lower lobe nodule in the posterior costophrenic sulcus measures 1.4 x 0.8 cm image 180. Stable subpleural lateral right lower lobe noncalcified nodule measures 0.5 x 0.6 cm image 161. Subpleural anterior left upper lobe 3 mm nodule image 52. 2 mm pleural-based lateral left upper lobe noncalcified nodule image 122. 3 mm oval noncalcified lingular nodule image 156. No bronchiectasis, honeycombing or reticulation. No pleural effusion or pneumothorax. Heart: Cardiomegaly. No pericardial effusion. Mildly calcified aortic valve and moderate to severe calcific plaque in the coronary arteries. Thyroid: No abnormality noted. Bones/joints: There are age-indeterminate nondisplaced fractures of the right lateral 7th through 9th and left anterior fourth ribs. Old anterior left fifth rib fracture. Degenerative changes noted in the scoliotic spine. Degenerative changes present in each shoulder. Soft tissues: No significant abnormality noted. Vasculature: Atherosclerotic ectatic aorta. There is borderline dilatation of the ascending aorta to 4 cm. Lymph nodes: Borderline enlarged precarinal lymph node measures 1 cm short axis dimension. IMPRESSION: 1. Age-indeterminate nondisplaced right lateral 7th through 9th and left anterior fourth ribs. 2. There is nonspecific groundglass opacity in the upper lobes left greater than right most likely reflecting pneumonitis and could be on the basis of aspiration. Correlate clinically. 3. Multiple bilateral pulmonary nodules present measuring up to 1.4 cm. 2 of the right lower lobe nodules were seen previously and are stable (nodules on images 161 and 180). Follow-up CT in 6 months recommended to reassess nodules not seen on the prior study and the groundglass opacities in the upper lobes to assure resolution. 4. Mild dilatation of the ascending aorta of 4 cm. ACT 112: Positive. There are findings on this exam that require communication between the performing entity and the patient following Patient Test Result Information Act ([place] ACT 112) guidelines. Electronically signed by Pinky Blanco 07-03-2024 5:11 PM Chest X-Ray 07/03/24 16:04 EXAM: X-ray chest one-view portable CLINICAL HISTORY: Fall Limited range of motion PRIORS: 05/02/2022, 03/26/2021 TECHNIQUE: Portable frontal view chest supine FINDINGS: The chest is well-expanded. No airspace consolidation, effusion or congestive changes. Heart size is top normal. No pneumothorax. Moderate atherosclerotic disease of the aortic knob present. Trachea is patent. Osseous structures demonstrate no acute abnormality. No radiopaque foreign body. IMPRESSION: No plain film evidence of an acute cardiopulmonary process. Electronically signed by Frida Du 07-03-2024 5:33 PM Hip/Pelvis X-Ray 07/03/24 16:05 EXAMINATION: X-ray hip right 2 view with pelvis CLINICAL HISTORY: Fall PRIORS: None TECHNIQUE: AP view pelvis, 2 views right hip FINDINGS: Overlying bowel gas and stool obscures fine bone detail. A left total hip arthroplasty within the [id number]. Vascular stents in the lower abdomen. Vascular calcifications present. Moderate osseous demineralization is noted. Allowing for this, no displaced fracture or dislocation. Obturator rings are unremarkable. Pubic symphysis is not widened. Sacroiliac joints are patent. Visualized left total hip arthroplasty is unremarkable. IMPRESSION: No plain film evidence of an acute osseous abnormality. Electronically signed by Frida Du 07-03-2024 5:36 PM PG Care Time/CCT Total # of Minutes Spent Total Time Spent with Patient: Total time spent is greater than 50% in coordination of care (as documented) at patient's floor/unit and/or counseling patient: Coding Level of Care Code 51448 SUB INP/OBS CARE 2/35MIN Diagnoses Rhabdomyolysis T79.6XXA Encounter type: initial encounter Rhabdomyolysis type: traumatic Acute UTI N39.0 Fall W19.XXXA Encounter type: initial encounter Elevated troponin R79.89 (1) Rhabdomyolysis Encounter type: initial encounter Rhabdomyolysis type: traumatic Qualified Code(s): T79.6XXA - Traumatic ischemia of muscle, initial encounter (3) Fall Encounter type: initial encounter Qualified Code(s): W19.XXXA - Unspecified fall, initial encounter
[2024-07-04] MEDS: cefTRIAXone SODIUM 2,000 MG/50 ML BAG IV SCH (17:20)
[2024-07-05 09:45] LABS: Hematocrit (blood only) 38.7 % (37.0-47.0); Hemoglobin 12.8 g/dl (12.0-16.0); Mean Corpuscular Hemoglobin 30.8 pg (25.0-34.0); Mean Corpuscular Hgb Conc 33.1 g/dL (32.0-36.0); Mean Platelet Volume 9.5 fL (9.4-12.4); Platelet Count 152 K/uL (130-400); RDW Coefficient of Variation 13.7 % (11.5-14.5); RDW Standard Deviation 46.5 fL (36.4-46.3); Red Blood Count 4.16 M/uL (4.20-5.40); White Blood Count 6.25 K/ul (4.8-10.8)
[2024-07-05 09:56] LABS: BUN Creatinine Ratio 18.1 (10-20); Calcium 8.4 mg/dl (8.6-10.3); Creatinine Clr Calc Pharmacy 43.2 ml/min; Potassium 3.4 mmol/L (3.5-5.1)
--- NOTE | 2024-07-05 13:32 | Hospitalist Progress Note ---
Date of Service July 05, 2024 Assessment & Plan (1) Rhabdomyolysis: Plan: Traumatic rhabdomyolysis Repeat CK trending down. Now in the 1000's range IV fluids discontinued. Encourage p.o. fluid intake. (2) Acute UTI: Plan: No specific urinary symptoms but more confused than baseline Ceftriaxone 2g IV Urine culture growing E. coli. May discharge on p.o. Keflex (3) Fall: Plan: Unwitnessed. Unclear circumstances surrounding fall or when it happened but reportedly clearing up Halloween decorations Hip x-ray and chest x-ray negative for fractures. PT/OT recommends rehab. Case management working on it (4) Elevated troponin: Plan: Stable without chest pain - do not suspect ACS Suspect demand-ischemia given etiology above Plan Metabolic encephalopathy. Likely secondary to UTI and dehydration. Improved. HTN - continue amlodipine and metoprolol Hyperlipidemia - hold simvastatin in setting of rhabdomyolysis VTE Prophylaxis - Lovenox 40mg SQ daily Diet - regular Admission and Anticipated Discharge Date Admission Date: July 03, 2024 Subjective Patient was seen and examined at 12:25 PM. She has no new complaints. She says that she is feeling better overall. She is enjoying her meals here. Review of Systems Review of Systems: All systems reviewed & are unremarkable except as noted in Subjective Physical Exam Physical Exam: General: Awake, conversant. Elderly frail looking woman Heart: S1, S2/regular rate and rhythm, no murmur rubs or gallops Lungs: Clear to auscultation bilaterally. Normal effort Abdomen: Soft/nontender/nondistended. No hepatosplenomegaly Extremities: No clubbing/cyanosis. No edema Behavior: Appropriate, cooperative Results & Data Results & Data Vital Signs (Past 12 Hours) Vital Signs Temp Pulse Resp BP BP Pulse Ox O2 Del Method 07/05/24 10:53 36.6 C 69 12 152/77 H 152/77 H 93 Room Air 07/05/24 07:52 36.2 C L 66 176/74 H 95 Room Air Laboratory Results Abnormal lab results 07/05/24 Range/Units 09:20 RBC 4.16 L (4.20-5.40) M/uL RDW Std Deviation 46.5 H (36.4-46.3) fL Potassium 3.4 L (3.5-5.1) mmol/L Glucose 134 H (70-99(Fasting)) mg/dl Calcium 8.4 L (8.6-10.3) mg/dl Total Creatine Kinase 1325 H (26-192) U/L PG Care Time/CCT Total # of Minutes Spent Total Time Spent with Patient: Total time spent is greater than 50% in coordination of care (as documented) at patient's floor/unit and/or counseling patient: Coding Level of Care Code 66402 SUB INP/OBS CARE 2/35MIN Diagnoses Rhabdomyolysis T79.6XXA Encounter type: initial encounter Rhabdomyolysis type: traumatic Acute UTI N39.0 Fall W19.XXXA Encounter type: initial encounter Elevated troponin R79.89 (1) Rhabdomyolysis Encounter type: initial encounter Rhabdomyolysis type: traumatic Qualified Code(s): T79.6XXA - Traumatic ischemia of muscle, initial encounter (3) Fall Encounter type: initial encounter Qualified Code(s): W19.XXXA - Unspecified fall, initial encounter
[2024-07-06] MEDS: ACETAMINOPHEN 325 MG TAB PO PRN (04:43)
[2024-07-06 06:42] LABS: Hematocrit (blood only) 36.7 % (37.0-47.0); Hemoglobin 12.7 g/dl (12.0-16.0); Mean Corpuscular Hemoglobin 31.4 pg (25.0-34.0); Mean Corpuscular Hgb Conc 34.6 g/dL (32.0-36.0); Mean Corpuscular Volume 90.8 fL (80.0-100.0); Mean Platelet Volume 9.6 fL (9.4-12.4); Platelet Count 150 K/uL (130-400); RDW Coefficient of Variation 13.2 % (11.5-14.5); RDW Standard Deviation 44.3 fL (36.4-46.3); Red Blood Count 4.04 M/uL (4.20-5.40); White Blood Count 5.89 K/ul (4.8-10.8)
[2024-07-06 06:58] LABS: BUN Creatinine Ratio 19.8 (10-20); Calcium 8.3 mg/dl (8.6-10.3); Creatinine Clr Calc Pharmacy 50.2 ml/min; Potassium 3.4 mmol/L (3.5-5.1)
--- NOTE | 2024-07-06 15:33 | Hospitalist Progress Note ---
Date of Service July 06, 2024 Assessment & Plan (1) Rhabdomyolysis: Plan: Traumatic rhabdomyolysis Repeat CK trending down. Now in the 1000's range IV fluids discontinued. Encourage p.o. fluid intake. (2) Acute UTI: Plan: No specific urinary symptoms but more confused than baseline Ceftriaxone 2g IV Urine culture growing E. coli. May discharge on p.o. Keflex (3) Fall: Plan: Unwitnessed. Unclear circumstances surrounding fall or when it happened but reportedly clearing up Halloween decorations Hip x-ray and chest x-ray negative for fractures. PT/OT recommends rehab. Case management working on it (4) Elevated troponin: Plan: Stable without chest pain - do not suspect ACS Suspect demand-ischemia given etiology above Plan Metabolic encephalopathy. Likely secondary to UTI and dehydration. Improved. HTN - continue amlodipine and metoprolol Hyperlipidemia - hold simvastatin in setting of rhabdomyolysis VTE Prophylaxis - Lovenox 40mg SQ daily Diet - regular Awaiting placement Admission and Anticipated Discharge Date Admission Date: July 03, 2024 Subjective Patient was seen and examined at 11:35 AM. She feels well. Denies any chest pain or shortness of breath Physical Exam Physical Exam: General: Awake, conversant. Elderly frail looking woman Heart: S1, S2/regular rate and rhythm, no murmur rubs or gallops Lungs: Clear to auscultation bilaterally. Normal effort Abdomen: Soft/nontender/nondistended. No hepatosplenomegaly Extremities: No clubbing/cyanosis. No edema Behavior: Appropriate, cooperative Results & Data Results & Data Vital Signs (Past 12 Hours) Vital Signs Temp Pulse Resp BP Pulse Ox O2 Del Method 07/06/24 13:14 36.4 C L 67 16 144/82 H 91 Room Air 07/06/24 11:01 143/78 H 07/06/24 09:15 36.5 C 72 18 190/76 H 94 Room Air Laboratory Results Abnormal lab results 07/06/24 07/06/24 Range/Units 06:14 07:27 RBC 4.04 L (4.20-5.40) M/uL Hct 36.7 L (37.0-47.0) % Potassium 3.4 L (3.5-5.1) mmol/L Glucose 109 H (70-99(Fasting)) mg/dl POC Glucose 106 H (70-99) mg/dl Calcium 8.3 L (8.6-10.3) mg/dl PG Care Time/CCT Total # of Minutes Spent Total Time Spent with Patient: Total time spent is greater than 50% in coordination of care (as documented) at patient's floor/unit and/or counseling patient: Coding Level of Care Code 56610 SUB INP/OBS CARE 2/35MIN Diagnoses Rhabdomyolysis T79.6XXA Encounter type: initial encounter Rhabdomyolysis type: traumatic Acute UTI N39.0 Fall W19.XXXA Encounter type: initial encounter Elevated troponin R79.89 (1) Rhabdomyolysis Encounter type: initial encounter Rhabdomyolysis type: traumatic Qualified Code(s): T79.6XXA - Traumatic ischemia of muscle, initial encounter (3) Fall Encounter type: initial encounter Qualified Code(s): W19.XXXA - Unspecified fall, initial encounter
[2024-07-06] MEDS: POTASSIUM CHLORIDE CRTAB 20 MEQ TABCR PO STA (15:54)
[2024-07-07 07:39] LABS: Hematocrit (blood only) 42.5 % (37.0-47.0); Hemoglobin 14.4 g/dl (12.0-16.0); Mean Corpuscular Hemoglobin 31.2 pg (25.0-34.0); Mean Corpuscular Hgb Conc 33.9 g/dL (32.0-36.0); Mean Corpuscular Volume 92.2 fL (80.0-100.0); Mean Platelet Volume 9.2 fL (9.4-12.4); Platelet Count 180 K/uL (130-400); RDW Coefficient of Variation 13.5 % (11.5-14.5); Red Blood Count 4.61 M/uL (4.20-5.40); White Blood Count 4.64 K/ul (4.8-10.8)
[2024-07-07 07:55] LABS: Creatinine Clr Calc Pharmacy 48.4 ml/min; Potassium 4.4 mmol/L (3.5-5.1)
[2024-07-07] MEDS ORDERED: amLODIPine BESYLATE 5 MG TAB PO SCH (09:00)
[2024-07-07] MEDS: amLODIPine BESYLATE 5 MG TAB PO ONE (09:09)
--- NOTE | 2024-07-07 12:52 | Hospitalist Progress Note ---
Date of Service July 07, 2024 Assessment & Plan (1) Rhabdomyolysis: Plan: Traumatic rhabdomyolysis Repeat CK trended down IV fluids discontinued. Encourage p.o. fluid intake. (2) Acute UTI: Plan: No specific urinary symptoms but more confused than baseline Ceftriaxone 2g IV Urine culture growing E. coli. May discharge on p.o. Keflex (3) Fall: Plan: Unwitnessed. Unclear circumstances surrounding fall or when it happened but reportedly clearing up Halloween decorations Hip x-ray and chest x-ray negative for fractures. PT/OT recommends rehab. Per case management, [facility] will be able to take her on Monday 07/09 (4) Elevated troponin: Plan: Stable without chest pain - do not suspect ACS Suspect demand-ischemia given etiology above Plan Metabolic encephalopathy. Likely secondary to UTI and dehydration. Improved. HTN -blood pressure consistently slightly elevated. Continue metoprolol. Increase the dose of amlodipine to 10 mg daily Hyperlipidemia - hold simvastatin in setting of rhabdomyolysis VTE Prophylaxis - Lovenox 40mg SQ daily Diet - regular Awaiting placement Admission and Anticipated Discharge Date Admission Date: July 03, 2024 Subjective Patient was seen and examined at 10:20 AM. Patient feels well overall. Denies chest pain or shortness of breath. Physical Exam Physical Exam: General: Awake, conversant. Elderly frail looking woman Heart: S1, S2/regular rate and rhythm, no murmur rubs or gallops Lungs: Clear to auscultation bilaterally. Normal effort Abdomen: Soft/nontender/nondistended. No hepatosplenomegaly Extremities: No clubbing/cyanosis. No edema Behavior: Appropriate, cooperative Results & Data Results & Data Vital Signs (Past 12 Hours) Vital Signs Temp Pulse Resp BP Pulse Ox O2 Del Method 07/07/24 07:52 36.5 C 77 18 160/82 H 93 Room Air Laboratory Results Abnormal lab results 07/07/24 Range/Units 07:13 WBC 4.64 L (4.8-10.8) K/ul MPV 9.2 L (9.4-12.4) fL Glucose 105 H (70-99(Fasting)) mg/dl PG Care Time/CCT Total # of Minutes Spent Total Time Spent with Patient: Total time spent is greater than 50% in coordination of care (as documented) at patient's floor/unit and/or counseling patient: Coding Level of Care Code 45491 SUB INP/OBS CARE MIN Diagnoses Rhabdomyolysis T79.6XXA Encounter type: initial encounter Rhabdomyolysis type: traumatic Acute UTI N39.0 Fall W19.XXXA Encounter type: initial encounter Elevated troponin R79.89 (1) Rhabdomyolysis Encounter type: initial encounter Rhabdomyolysis type: traumatic Qualified Code(s): T79.6XXA - Traumatic ischemia of muscle, initial encounter (3) Fall Encounter type: initial encounter Qualified Code(s): W19.XXXA - Unspecified fall, initial encounter
[2024-07-08 06:58] LABS: Hematocrit (blood only) 39.7 % (37.0-47.0); Hemoglobin 13.7 g/dl (12.0-16.0); Mean Corpuscular Hemoglobin 31.6 pg (25.0-34.0); Mean Corpuscular Hgb Conc 34.5 g/dL (32.0-36.0); Mean Corpuscular Volume 91.5 fL (80.0-100.0); Mean Platelet Volume 9.7 fL (9.4-12.4); Platelet Count 213 K/uL (130-400); RDW Coefficient of Variation 13.5 % (11.5-14.5); RDW Standard Deviation 45.8 fL (36.4-46.3); Red Blood Count 4.34 M/uL (4.20-5.40); White Blood Count 5.29 K/ul (4.8-10.8)
[2024-07-08 07:29] LABS: BUN Creatinine Ratio 21.2 (10-20); Calcium 8.8 mg/dl (8.6-10.3); Potassium 4.2 mmol/L (3.5-5.1)
[2024-07-08] MEDS: amLODIPine BESYLATE 5 MG TAB PO SCH (07:50)
--- NOTE | 2024-07-08 16:06 | Hospitalist Progress Note ---
Date of Service July 08, 2024 Assessment & Plan (1) Rhabdomyolysis: Plan: Traumatic rhabdomyolysis Repeat CK trended down IV fluids discontinued. Encourage p.o. fluid intake. (2) Acute UTI: Plan: No specific urinary symptoms but more confused than baseline Ceftriaxone 2g IV Urine culture growing E. coli. May discharge on p.o. Keflex (3) Fall: Plan: Unwitnessed. Unclear circumstances surrounding fall or when it happened but reportedly clearing up Halloween decorations Hip x-ray and chest x-ray negative for fractures. PT/OT recommends rehab. Per case management, [facility] will be able to take her on Monday 07/09 (4) Elevated troponin: Plan: Stable without chest pain - do not suspect ACS Suspect demand-ischemia given etiology above Plan Metabolic encephalopathy. Likely secondary to UTI and dehydration. Resolved HTN -blood pressure consistently slightly elevated. Continue metoprolol. Increase the dose of amlodipine to 10 mg daily Hyperlipidemia - hold simvastatin in setting of rhabdomyolysis VTE Prophylaxis - Lovenox 40mg SQ daily Diet - regular Likely discharge tomorrow 07/09 Admission and Anticipated Discharge Date Admission Date: July 03, 2024 Subjective Patient was seen and examined at 11:45 AM. Patient was accompanied by her son. She is smiling and joking. She feels well overall. Review of Systems Review of Systems: All systems reviewed & are unremarkable except as noted in Subjective Physical Exam Physical Exam: General: Awake, conversant. Elderly frail looking woman Heart: S1, S2/regular rate and rhythm, no murmur rubs or gallops Lungs: Clear to auscultation bilaterally. Normal effort Abdomen: Soft/nontender/nondistended. No hepatosplenomegaly Extremities: No clubbing/cyanosis. No edema Behavior: Appropriate, cooperative Results & Data Results & Data Vital Signs (Past 12 Hours) Vital Signs Temp Pulse Pulse Resp BP Pulse Ox O2 Del Method 07/08/24 15:24 36.8 C 66 18 159/93 H 93 Room Air 07/08/24 13:13 36.8 C 67 18 122/88 96 Room Air 07/08/24 08:15 Room Air 07/08/24 07:44 36.4 C L 76 20 118/84 96 Room Air Laboratory Results Abnormal lab results 07/08/24 Range/Units 06:09 BUN/Creatinine Ratio 21.2 H (10-20) Glucose 104 H (70-99(Fasting)) mg/dl PG Care Time/CCT Total # of Minutes Spent Total Time Spent with Patient: Total time spent is greater than 50% in coordination of care (as documented) at patient's floor/unit and/or counseling patient: Coding Level of Care Code 57207 SUB INP/OBS CARE 2/35MIN Diagnoses Rhabdomyolysis T79.6XXA Encounter type: initial encounter Rhabdomyolysis type: traumatic Acute UTI N39.0 Fall W19.XXXA Encounter type: initial encounter Elevated troponin R79.89 (1) Rhabdomyolysis Encounter type: initial encounter Rhabdomyolysis type: traumatic Qualified Code(s): T79.6XXA - Traumatic ischemia of muscle, initial encounter (3) Fall Encounter type: initial encounter Qualified Code(s): W19.XXXA - Unspecified fall, initial encounter
[2024-07-09 06:51] LABS: Hematocrit (blood only) 38.3 % (37.0-47.0); Hemoglobin 12.9 g/dl (12.0-16.0); Mean Corpuscular Hemoglobin 31.4 pg (25.0-34.0); Mean Corpuscular Hgb Conc 33.7 g/dL (32.0-36.0); Mean Corpuscular Volume 93.2 fL (80.0-100.0); Mean Platelet Volume 9.3 fL (9.4-12.4); Platelet Count 190 K/uL (130-400); RDW Coefficient of Variation 13.7 % (11.5-14.5); RDW Standard Deviation 46.6 fL (36.4-46.3); Red Blood Count 4.11 M/uL (4.20-5.40); White Blood Count 4.36 K/ul (4.8-10.8)
[2024-07-09 07:10] VITALS: BP 166/84; PULSE 74; RESP 18; TEMP 97.9; O2SAT 96
[2024-07-09 07:15] LABS: BUN Creatinine Ratio 23.8 (10-20); Calcium 8.4 mg/dl (8.6-10.3); Creatinine Clr Calc Pharmacy 48.4 ml/min; Potassium 4.2 mmol/L (3.5-5.1)
--- NOTE | 2024-07-09 12:10 | Discharge Summary ---
Date of Service July 09, 2024 Admission HPI Per Admitting Provider Rachelle Espinosa is an 89 year old female who presents to the ER after an unwitnessed ground level fall. She is unable to tell me when this fall happened or how it happened. She was found by her son and was reportedly taking down Halloween decorations. She denies any pain to me although was complaining of right hip pain to EMS. Her son at bedside reports she is more confused than her baseline but remains orientated x3. She lives alone but has regular visits from her family. She does not fall regularly and her son can only remember one other occasion she fell. No fever, chills, respiratory, gastrointestinal, or urinary complaints. Last known well was Thursday. Admission Exam Per Admitting Provider Constitutional: WD/WN, vitals as above Eyes: PERRL, conjunctivae normal, anicteric sclerae ENMT: Mouth: + dry oral mucous membranes Respiratory: normal respiratory effort, lungs clear to auscultation Cardiovascular: RRR, no murmur, no edema Gastrointestinal (Abdomen): normal bowel sounds, soft, nontender, no hepatosplenomegaly Musculoskeletal: no cyanosis or clubbing, extremities motor strength 5/5 Skin: no rashes, warm and dry Neurologic: moves all extremities and awake; no focal motor deficits and not confused Psychiatric: A+Ox3, euthymic affect Genitourinary: no CVA tenderness Principal Diagnosis Fall Traumatic rhabdomyolysis Acute E. coli UTI Discharge Exam General: Awake, conversant. Elderly frail looking woman Heart: S1, S2/regular rate and rhythm, no murmur rubs or gallops Lungs: Clear to auscultation bilaterally. Normal effort Abdomen: Soft/nontender/nondistended. No hepatosplenomegaly Extremities: No clubbing/cyanosis. No edema Behavior: Appropriate, cooperative Discharge Data Allergies Allergy/AdvReac Type Severity Reaction Status Date / Time Sulfa (Sulfonamide AdvReac Intermediate Severe Verified 07/03/24 18:01 Antibiotics) vomiting Consultations 07/03/24 18:09 ED Decision to Admit Stat Ordered Studies 07/03/24 16:04 CT abd pelvis wo con Stat CT cervical spine wo con Stat CT chest diagnostic wo con Stat CT head/brain wo con Stat Hospital Course (1) Rhabdomyolysis: Traumatic rhabdomyolysis Repeat CK trended down IV fluids discontinued. Encourage p.o. fluid intake. (2) Acute UTI: No specific urinary symptoms but more confused than baseline Was treated with ceftriaxone 2g IV Urine culture growing E. coli. Discharge on p.o. Keflex to complete the course (3) Fall: Unwitnessed. Unclear circumstances surrounding fall or when it happened but reportedly clearing up Halloween decorations Hip x-ray and chest x-ray negative for fractures. PT/OT recommends rehab. (4) Elevated troponin: Stable without chest pain - do not suspect ACS Suspect demand-ischemia given etiology above Plan Metabolic encephalopathy. Likely secondary to UTI and dehydration. Resolved HTN -blood pressure consistently slightly elevated. Continue metoprolol. Increase the dose of amlodipine to 10 mg daily Hyperlipidemia -resume simvastatin Discharge to home today Total Time Total Time Spent Total Time Spent (In Minutes): 35 Discharge Plan Discharge Items Patient Disposition: Transfer Alf Fac Reason For Visit: UTI, RHABODOMYOLYSIS Discharge Diagnosis: Fall Traumatic rhabdomyolysis Acute E. coli UTI Activity: Resume your previous activity Non-emergency contact: Primary Care Provider Call non-emergency contact if: you have any medication questions and your symptoms worsen Follow-up/Referrals: Pavithra Segovia MD [Primary Care Provider] - Diet: Heart Healthy Addtl Attending Provider Instructions: Advised to follow-up with PCP in 1 week Pending Studies at Discharge: No Stand-Alone Forms: My [employer] Skilled Items Patient informed of condition?: Yes DNR: No Discharge Level of Care: Skilled Communicable Disease: No Discharge Prognosis: Stable Lines: None Urinary Catheter: No Medications and DC Order Prescriptions: New cephalexin 500 mg capsule 500 mg PO BID 1 Days Qty: 2 0RF Continued metoprolol succinate 25 mg tablet extended release 24 hr 25 mg PO QAM Qty: 90 3RF simvastatin 20 mg tablet 20 mg PO HS Qty: 90 3RF methenamine hippurate 1 gram tablet 1 g PO QPM Qty: 90 1RF Prolia 60 mg/mL syringe 60 mg subcut UD Qty: 1 0RF Rx Instructions: 60 mg subcut once every [address] office. REFRIGERATE. Use within 14 days once at room temp. cannabidiol PO PRN multivitamin Tablet 1 tab PO QAM albuterol sulfate 90 mcg/actuation HFA aerosol inhaler 2 puff INHALATION QID PRN (Reason: Shortness Of Breath) Changed amlodipine 5 mg tablet 10 mg PO QAM Qty: 90 3RF Discharge Orders: Discharge Order (Routine); Ordered 07/09/24 Ordered By: Flaco Verdin Admission Data Admit Date/Time: 07/03/24 18:09 Attending Provider: Flaco Verdin Admit Provider: Hernando Thompson Primary Care Provider: Pavithra Segovia Other Providers: Hernando Thompson; [facility] [place] Other Interventions: Discharge Summary Assessment (RN) Last Done: 07/09/24 11:39
== END 2024-07-09 13:54 | DRG 564 ==
LOC: ED 15:56 → SUATTDRO 18:09 → 3W 18:09
DX: E78.5 Hyperlipidemia, unspecified; K21.9 Gastro-esophageal reflux disease without esophagitis; G93.41 Metabolic encephalopathy; E86.0 Dehydration; Z79.899 Other long term (current) drug therapy; I10 Essential (primary) hypertension; L89.159 Pressure ulcer of sacral region, unspecified stage; I24.89 Other forms of acute ischemic heart disease; T79.6XXA Traumatic ischemia of muscle, initial encounter; N39.0 Urinary tract infection, site not specified; Z11.52 Encounter for screening for COVID-19; J44.9 Chronic obstructive pulmonary disease, unspecified; W19.XXXA Unspecified fall, initial encounter; B96.20 Unspecified Escherichia coli [E. coli] as the cause of diseases classified elsewhere

== ENCOUNTER 2025-07-04 13:53 | Inpatient (IN) ==
--- NOTE | 2025-07-04 14:44 | Emergency Department Note ---
History of Present Illness General Chief complaint: Shortness of Breath/Dyspnea Time Seen by Provider: 07/04/25 14:25 History of Present Illness Patient is an 89-year-old female with past medical history significant for COPD, hypertension, dyslipidemia, osteoporosis, among other chronic medical problems who is brought to the emergency department via EMS from her primary care provider's office for evaluation of shortness of breath and hypoxia. PCP note reviewed. Patient reports she started to feel ill a few days ago, with cough that was initially dry that is now productive, with increasing wheezing and shortness of breath overnight. She has subjective chills and sweats, but has not documented a fever. She has a little bit of a runny nose. She states she went to bed last night after dinner not feeling well, she vomited overnight. At the PCP office today, oxygen saturations were noted to be in the upper 80s on room air. She was given a DuoNeb treatment and placed on oxygen. Given persistence of symptoms, she was directed to the ED. She received a second DuoNeb and route. Upon arrival in the ED, oxygen saturations are 94% on room air. Patient denies any chest pain. She has a history of pneumonia many years ago. She was placed on doxycycline and prednisone for bronchitis/COPD exacerbation in May. Patient states that she took some Aleve and an [id number] cough medicine this morning. Home Medications Medication Instructions Recorded Confirmed Type multivitamin 1 tab PO QAM 03/15/20 07/04/25 History cannabidiol PO PRN Unknown 03/29/24 07/04/25 History metoprolol succinate 25 mg 25 mg PO QAM #90 tabs 11/24/24 07/04/25 Rx tablet,extended release 24 hr simvastatin 20 mg tablet 20 mg PO HS #90 tabs 01/05/25 07/04/25 Rx methenamine hippurate 1 gram tablet 1 g PO QPM #90 tabs 02/13/25 07/04/25 Rx romosozumab-aqqg 105 mg/1.17 mL 210 mg (2.34 mL) subcut MONTHLY 04/28/25 07/04/25 Rx subcutaneous syringe (Evenity) #2.34 mL doxycycline monohydrate 100 mg 100 mg PO BID #14 caps 05/22/25 07/04/25 Rx capsule albuterol sulfate 90 mcg/actuation 2 puff inhalation QID PRN 05/23/25 07/04/25 Rx aerosol inhaler Shortness Of Breath #8.5 grams spacer with face mask #1 ea 05/23/25 07/04/25 Rx amlodipine 10 mg tablet 10 mg PO DAILY #90 tabs 06/13/25 07/04/25 Rx Allergies Allergy/AdvReac Type Severity Reaction Status Date / Time Sulfa (Sulfonamide AdvReac Intermediate Severe Verified 07/04/25 12:53 Antibiotics) vomiting Past Med/Surg History Problem List Acute exacerbation of chronic obstructive pulmonary disease (Acute) Hypoxic respiratory failure (Acute) Hypoxia Leg wound, right Dyspnea on minimal exertion Cough Osteoporosis Elevated troponin Rhabdomyolysis (Acute) Fall (Acute) Rectal bleeding Osteoarthritis of right knee Vitamin D deficiency Dyspnea on exertion Irregular heart rate S/P endovascular aneurysm repair Acute URI Leg wound, left (Acute) Encounter for examination following treatment at hospital Cellulitis of left leg Status post left knee replacement (~03/2021) Presence of pessary Greater trochanteric bursitis of left hip Cellulitis of right lower extremity Loss of height Chronic otitis media of left ear Sensorineural hearing loss (SNHL) of left ear with restricted hearing of right ear Routine health maintenance Status post hip hemiarthroplasty (~02/2020) COPD (chronic obstructive pulmonary disease) (Chronic) Wheezing Hyperkeratosis (Acute) Atypical nevi (Acute) Back pain (Acute) [place]-Walker grade 3 cystocele (Acute) Benign essential hypertension (Chronic) Hearing loss (Acute) Incomplete emptying of bladder (Acute) Intertrigo (Acute) Osteoporosis (Chronic) Pessary maintenance (Acute) Urge and stress incontinence (Acute) Urinary tract infection, recurrent (Acute) AAA (abdominal aortic aneurysm) (Chronic) AAA measuring 45 mm in diameter just above the bifurcation, a thrombus is noted in the aneurysm sac without significant stenosis of the luminal diameter per 04/24/22 CTA Abd/Pelvis Hyperlipidemia (Chronic) Shoulder pain, acute (Acute) Frailty Osteoporosis 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/p excision Hip fracture due to osteoporosis s/p surgical intervention Medical History History of multiple pulmonary nodules Presence of pessary intact Deafness in left ear Chronic back pain Osteoarthritis History of skin cancer Hyperlipidemia Hypertension H/O gastroesophageal reflux (GERD) Chronic obstructive pulmonary disease uses prn inhaler Surgical History History of hip surgery repair of fx S/P AAA repair Percutaneous Endovascular Repair of Abdominal Aortic Aneurysm>2021/[facility] at OR History of total knee arthroplasty Left TKA (04/15/21): SAB at L4/5 x1 attempt + PNB at [facility]. No issues noted per post-op anesthesia progress note. History of open reduction and internal fixation (ORIF) procedure Left anterior bipolar hip (03/16/20): SAB at L3/L4 (x2 attempts) at [facility] History of appendectomy History of colonoscopy History of cataract surgery right/left History of tonsillectomy History of hysterectomy LINDSEY with BSO History of bladder surgery Family History Mother Colorectal cancer Hearing loss Cancer Denies family history of Ovarian cancer Prostate cancer No family history of adverse response to anesthesia No family history of bleeding disorder Heart disease Allergies Myocardial infarction Breast cancer Hypertension Asthma Social History Smoking Status: Former smoker Tobacco Type: Cigarettes Age Started Using Tobacco: 17; Age Quit Using Tobacco: 63; packs per day: 0.2; Second Hand Exposure: Yes; Do You Dip or Chew Tobacco: No; Hx Alcohol Use: No Hx Substance Use: No Preferred Language: [place]uran Communication Ability: Effective Communication Ability Comment: pt deaf in left ear, hearing aid in right Visual Impairment: No Limitations Hearing Ability: Hard of Hearing Enrobing Machine Corder Required: No Beliefs That Will Affect Care: None marital status: / Current Living Situation: Alone Current Living Situation Comment: lives alone in split level home, with only "a couple steps" current occupational status: retired How many Children do You have: 3 Other Information That Helps Us Care for You: No Feels Safe at Home: Yes Safety Concerns: Feels Safe At This Time Childhood Exposure to Second-Hand Smoke: No Diet: regular caffeine: Yes (Coffee ) during the past year weight has: remained stable Dental Care, Regularly: Yes Physical Activity Frequency: Daily Seatbelt Use: always Sunscreen Use: No Do you think of yourself as: straight/heterosexual Sexual Activity: has been sexually active, but not for at least 12 months Gender Identity: Female Assistive Devices: Cane, Hearing Aid - Right and Walker Review of Systems A total of 10 systems reviewed and were otherwise negative Physical Exam Vital Signs Vital Signs - 24 hr 07/04/25 14:07 07/04/25 15:21 07/04/25 15:21 Pulse Rate 74 Pulse Rate from SpO2 Sensor Respiratory Rate 19 Respiratory Effort / Characteristics Non-Labored Spontaneous Non-Labored Spontaneous Respiratory Depth Normal Normal Blood Pressure 146/81 H Blood Pressure Mean 102 Pulse Oximetry 95 94 Oxygen Delivery Method Room Air Room Air Sepsis Recent Fever Within 48 Hours Yes Sepsis New/Unexplained Change in Mental Status N/A Sepsis Action Taken by Nursing No Action Required 07/04/25 15:21 07/04/25 15:25 07/04/25 15:30 Pulse Rate 80 82 72 Pulse Rate from SpO2 Sensor 74 Respiratory Rate 19 26 H Respiratory Effort / Characteristics Respiratory Depth Blood Pressure 146/81 H Blood Pressure Mean 102 Pulse Oximetry 94 93 Oxygen Delivery Method Room Air Sepsis Recent Fever Within 48 Hours Sepsis New/Unexplained Change in Mental Status Sepsis Action Taken by Nursing 07/04/25 16:33 Pulse Rate 77 Pulse Rate from SpO2 Sensor 79 Respiratory Rate 33 H Respiratory Effort / Characteristics Respiratory Depth Blood Pressure 135/73 Blood Pressure Mean 93 Pulse Oximetry 92 Oxygen Delivery Method Room Air Sepsis Recent Fever Within 48 Hours Sepsis New/Unexplained Change in Mental Status Sepsis Action Taken by Nursing MENTAL STATUS: Pleasant, nontoxic-appearing 89-year-old female who is awake and alert and in no acute distress sitting semiupright on the gurney. Oxygen saturation is 95% on room air. She is speaking in full sentences. HEAD: Atraumatic, without temporal or scalp tenderness. EYES: PERRL, EOMI, no discharge or injection. EARS: Tympanic membranes intact, not inflamed, have normal contour. External canals clear. NOSE: Nares patent, turbinates edematous and boggy with clear rhinorrhea. MOUTH: Mucous membranes moist, no lesions, tongue and gums appear normal. THROAT: No pharyngeal injection, exudates, or tonsillar hypertrophy. Airway is patent. NECK: Supple, nontender, no lymphadenopathy. HEART: Regular rate and rhythm without murmurs, ectopy, gallops, or rubs. LUNGS: Breath sounds diminished bilaterally, harsh with wheezes and rhonchi throughout. SKIN: Normal. NEUROLOGICAL: Sensory and motor functions grossly intact. Normal gait. Course Course The patient was seen and assessed as above. External medical records are reviewed. Outpatient PCP note from just prior to arrival reviewed. She presents to the emergency department for evaluation of cough, wheezing, shortness of breath and low oxygen saturation at her PCP prior to arrival. IV lock was initiated and laboratory studies were collected. CBC with differential, CMP, troponin, upper respiratory BioFire were collected. Chest x- ray and EKG were performed. She was given a DuoNeb in the ED, 80 mg of Solu- Medrol IV and Mucinex 1200 mg p.o. Diagnostics, as interpreted by me: Laboratory studies: No leukocytosis, no anemia, no significant electrolyte imbalance. BUN/creatinine 27/1.30, chronic and stable for the patient. Magnesium 2.2, no transaminitis. Troponin mildly elevated 17.9. Upper respiratory BioFire negative for pathogens. ECG: Sinus rhythm with first-degree AV block, nonspecific T wave abnormality in the lateral leads, no acute ischemic changes, no change on review of prior EKGs. 88 Cardiac monitoring: An order was placed for continuous cardiac monitoring. The monitor shows a NSR at a rate of [] per my interpretation. Imaging studies: Chest x-ray clear, no infiltrate or consolidation. Patient history, presentation and ED workup reviewed with Dr. Gaviria, attending physician. The patient did report some improvement with the initial nebulizer treatment. Magnesium level checked, and she was given IV magnesium 1 g in the ED. All laboratory and diagnostic imaging studies were reviewed with the patient and her family who are now at the bedside. Presentation is consistent with COPD exacerbation with hypoxia. She does not examine like overt CHF. Given her current condition, need for oxygen earlier, need for ongoing nebulizer treatments, I did recommend inpatient care and patient and family were agreeable. Patient was reviewed with the ED case liner and discussed with Dr. Lilly with the [facility] hospitalist service. Chronic conditions affecting care: COPD, hypertension, Differential diagnosis: Reactive airway disease, pneumonia, pneumothorax, COPD, CHF, infections, cardiac ischemia, pulmonary embolism, musculoskeletal, gastrointestinal, as well as other pathologies. Administered Medications Discontinued Medications Albuterol (Albut/Ipratrop 3mg/0.5mg Neb 3 Ml Vial) 3 ml NEB NOW STA; Protocol Stop: 07/04/25 14:45 Last Admin: 07/04/25 15:27 Dose: 3 ml Documented By: REECE Guaifenesin (Guaifenesin 600 Mg Tabcr) 1,200 mg PO NOW STA Stop: 07/04/25 14:45 Last Admin: 07/04/25 15:27 Dose: 1,200 mg Documented By: REECE Magnesium Sulfate/Dextrose (Magnesium Sulfate / D5w) 1 gm in 100 mls @ 100 mls/hr IV NOW STA Stop: 07/04/25 17:00 Last Infusion: 07/04/25 19:18 Dose: Infused Documented By: Admin: 07/04/25 17:31 Dose: 100 mls/hr Documented By: REECE Methylprednisolone (Methylprednisolone 125 Mg/2 Ml Vial) 80 mg IV NOW STA Stop: 07/04/25 14:45 Last Admin: 07/04/25 15:27 Dose: 80 mg Documented By: REECE Medical Decision Making Differential Diagnosis See ED course. Medical Records Attestation: I reviewed the patient's medical records. Home Medications Current Medication List: was personally reviewed by me Laboratory Data Attestation: I reviewed the patient's lab results. 07/04/25 14:48 07/04/25 14:48 Lab Results 07/04/25 Range/Units 14:48 WBC 5.62 (4.8-10.8) K/ul RBC 4.34 (4.20-5.40) M/uL Hgb 13.5 (12.0-16.0) g/dl Hct 39.9 (37.0-47.0) % MCV 91.9 (80.0-100.0) fL MCH 31.1 (25.0-34.0) pg MCHC 33.8 (32.0-36.0) g/dL RDW Std Deviation 44.6 (36.4-46.3) fL RDW Coeff of Spenser 13.2 (11.5-14.5) % Plt Count 244 (130-400) K/uL MPV 9.1 L (9.4-12.4) fL Immature Gran % (Auto) 0.4 % Neut % (Auto) 53.8 % Lymph % (Auto) 23.7 % [place] % (Auto) 11.7 % Eos % (Auto) 9.3 % Baso % (Auto) 1.1 % Neut # (Auto) 3.03 (1.40-6.50) K/uL Lymph # (Auto) 1.33 (1.20-3.40) K/uL [place] # (Auto) 0.66 H (0.11-0.59) K/uL Eos # (Auto) 0.52 H (0.00-0.50) K/uL Baso # (Auto) 0.06 (0.00-0.20) K/uL Immature Gran # (Auto) 0.02 (0.01-0.20) K/uL Sodium 141 (136-145) mmol/L Potassium 3.6 (3.5-5.1) mmol/L Chloride 100 (98-107) mmol/L Carbon Dioxide 31 (21-32) mmol/L Anion Gap 10 (3-11) BUN 27 H (6-23) mg/dl Creatinine 1.30 H (0.6-1.2) mg/dl Est Cr Clr Drug Dosing 28.8 ml/min eGFR 39.31 BUN/Creatinine Ratio 20.8 H (10-20) Glucose 115 H (70-99(Fasting)) mg/dl Calcium 10.3 (8.6-10.3) mg/dl Magnesium 2.2 (1.7-2.4) mg/dl Total Bilirubin 0.5 (0.2-1.0) mg/dl AST 19 (13-39) U/L ALT 13 (7-52) U/L Alkaline Phosphatase 70 (34-104) U/L Troponin I High Sens 17.9 H (0-14) pg/ml Total Protein 6.8 (6.0-8.3) gm/dl Albumin 4.3 (3.4-5.0) gm/dl Globulin 2.5 (2.5-4.0) gm/dl Albumin/Globulin Ratio 1.7 (0.9-2) Adenovirus (PCR) Not Detected (NotDetected) B. pertussis DNA (PCR) Not Detected (NotDetected) B.parapertussis DNA PCR Not Detected (NotDetected) C. pneumoniae DNA (PCR) Not Detected (NotDetected) Coronavirus OC43 (PCR) Not Detected (NotDetected) Coronavirus HKU1 (PCR) Not Detected (NotDetected) Coronavirus 229E (PCR) Not Detected (NotDetected) SARS-CoV-2 (PCR) Not Detected (NotDetected) Coronavirus NL63 (PCR) Not Detected (NotDetected) Human Metapneumovir PCR Not Detected (NotDetected) Influenza Type A (PCR) Not Detected (NotDetected) Influenza Type B (PCR) Not Detected (NotDetected) M. pneumoniae (PCR) Not Detected (NotDetected) Parainfluenza 1 (PCR) Not Detected (NotDetected) Parainfluenza 2 (PCR) Not Detected (NotDetected) Parainfluenza 3 (PCR) Not Detected (NotDetected) Parainfluenza 4 (PCR) Not Detected (NotDetected) RSV (PCR) Not Detected (NotDetected) Entero/Rhino (PCR) Not Detected (NotDetected) Imaging Data Attestation: I personally reviewed and interpreted this imaging study as follows: Radiologist's Impression: Chest X-Ray 07/04/25 14:28 XR chest 1V portable CLINICAL HISTORY: Dyspnea COMPARISON STUDY: 05/23/2025 FINDINGS: Heart size and pulmonary vasculature are normal. No consolidation or pleural effusion. No pneumothorax. IMPRESSION: No acute findings. ACT 112: Negative or not required by law. Electronically signed by: Jamal Lees M.D. 07/04/2025 3:03 PM MDM Narrative See ED course. Impression & Plan Hypoxic respiratory failure, Acute exacerbation of chronic obstructive pulmonary disease Discharge Plan Visit Data Chief Complaint: Shortness of Breath/Dyspnea ED Provider: Sarah Gaviria ED Midlevel Provider: Vijaya Roldan Discharge Problem: Hypoxic respiratory failure, Acute exacerbation of chronic obstructive pulmonary disease Patient Disposition: Admitted As Inpatient Condition: Fair Discharge Instructions Interventions: ED Discharge Assessment Last Done: 07/04/25 21:34
--- NOTE | 2025-07-04 14:52 | Emergency Department Note ---
ED Visit Note I was consulted by the Advanced Practice Provider, LEN Daniel. I performed a substantive portion of the visit. This includes aspects of: History: Patient is an 89-year-old female presenting with shortness of breath and hypoxia. Patient has been feeling generally unwell with shortness of breath and a cough over the last few days. She has had subjective fevers and sweats. She was seen in her primary care provider's office and an oxygen saturation is in the upper 80s on room air. She is given a DuoNeb treatment and placed on oxygen and referred to the emergency department. She received a second DuoNeb prehospital with EMS. MDM: Workup in the emergency department grossly unremarkable. Patient does have slightly elevated troponin. Chest x-ray negative for pneumonia, per my interpretation. Viral respiratory panel positive. Patient has received another DuoNeb in the emergency department and was given Solu-Medrol. A gram of magnesium was ordered to help with her continued wheezing. Will be admitted to hospitalist service. .
[2025-07-04 15:04] LABS: Hematocrit (blood only) 39.9 % (37.0-47.0); Hemoglobin 13.5 g/dl (12.0-16.0); Immature Granulocytes # (auto) 0.02 K/uL (0.01-0.20); Immature Granulocytes % (auto) 0.4 %; Mean Corpuscular Hemoglobin 31.1 pg (25.0-34.0); Mean Corpuscular Volume 91.9 fL (80.0-100.0); Platelet Count 244 K/uL (130-400); RDW Standard Deviation 44.6 fL (36.4-46.3); Red Blood Count 4.34 M/uL (4.20-5.40); White Blood Count 5.62 K/ul (4.8-10.8)
--- NOTE | 2025-07-04 15:05 | XRay Report ---
XR chest 1V portable CLINICAL HISTORY: Dyspnea COMPARISON STUDY: 05/23/2025 FINDINGS: Heart size and pulmonary vasculature are normal. No consolidation or pleural effusion. No p neumothorax. IMPRESSION: No acute findings. ACT 112: Negative or not required by law. Electronically signed by: Jamal Lees M.D. 07/04/2025 3:03 PM
[2025-07-04 15:24] LABS: Alanine Aminotransferase 13.0 U/L (7-52); Albumin Globulin Ratio 1.7 (0.9-2); Albumin Level 4.3 gm/dl (3.4-5.0); Alkaline Phosphatase 70.0 U/L (34-104); Anion Gap 10.0 (3-11); Bilirubin,Total 0.5 mg/dl (0.2-1.0); Blood Urea Nitrogen 27.0 mg/dl (6-23); Calcium 10.3 mg/dl (8.6-10.3); Carbon Dioxide 31.0 mmol/L (21-32); Chloride 100.0 mmol/L (98-107); Creatinine Clr Calc Pharmacy 28.8 ml/min; Globulin 2.5 gm/dl (2.5-4.0); Glucose 115.0 mg/dl (70-99(Fasting)); Potassium 3.6 mmol/L (3.5-5.1); Sodium 141.0 mmol/L (136-145); Total Protein 6.8 gm/dl (6.0-8.3)
[2025-07-04] MEDS: guaiFENesin 600 MG TABCR PO STA (15:27)
[2025-07-04] MEDS: ALBUT/IPRATROP 3MG/0.5MG NEB 3 ML VIAL NEB STA (15:27)
[2025-07-04 15:51] LABS: Chlamydia pneumoniae PCR Not Detected (NotDetected); Coronavirus 229E PCR Not Detected (NotDetected); Coronavirus CoV-2 (COVID19)PCR Not Detected (NotDetected); Coronavirus HKU1 PCR Not Detected (NotDetected); Coronavirus NL63 PCR Not Detected (NotDetected); Coronavirus OC43PCR Not Detected (NotDetected); Human Metapneumovirus PCR Not Detected (NotDetected); Parainfluenza Virus 1 PCR Not Detected (NotDetected); Parainfluenza Virus 2 PCR Not Detected (NotDetected); Parainfluenza Virus 3 PCR Not Detected (NotDetected); Parainfluenza Virus 4 PCR Not Detected (NotDetected); Respiratory Syncytial VirusPCR Not Detected (NotDetected); Rhinovirus/Enterovirus PCR Not Detected (NotDetected)
[2025-07-04 16:22] LABS: Magnesium 2.2 mg/dl (1.7-2.4)
--- NOTE | 2025-07-04 17:14 | History & Physical Report ---
Date of Service July 04, 2025 Assessment & Plan (1) Chronic obstructive pulmonary disease: (2) COPD exacerbation: (3) Hypertension: (4) AAA (abdominal aortic aneurysm): Plan #COPD exacerbationfortunately not hypoxic, but does appear to be quite symptomatic. Solu-Medrol twice daily, azithromycin for pulmonary anti- inflammatory effect, 4 times daily DuoNebs and every 6 as needed. #Easy confusionseems to be within baseline range according to son. Not sure what her overall baseline mental status is. Follow. #COPDappears to only take as needed albuterolMay benefit from more chronic inhaler regimen. #AAA/possible hypertensioncontinue amlodipine and metoprolol #DVT prophylaxisheparin subcu History of Present Illness Chief Complaint: sob Primary Care Provider: Pavithra Segovia MD pt is a pleasant 89F onset sob yesterday - First got sick yesterday afternoon. Vomited once. After that, it has really been more respiratory symptoms. No further nausea and vomiting. No diarrhea. She has had a cough, shortness of breath, and appearing dyspneic. She was seen at her PCPs office earlier today where she was found to be in respiratory distress, she was sent to the ER. We have been asked to admit for COPD exacerbation. Allergies Allergy/AdvReac Type Severity Reaction Status Date / Time Sulfa (Sulfonamide AdvReac Intermediate Severe Verified 07/04/25 12:53 Antibiotics) vomiting Home Medications Medication Instructions Recorded Confirmed Type multivitamin 1 tab PO QAM 03/15/20 07/04/25 History cannabidiol PO PRN Unknown 03/29/24 07/04/25 History metoprolol succinate 25 mg 25 mg PO QAM #90 tabs 11/24/24 07/04/25 Rx tablet,extended release 24 hr simvastatin 20 mg tablet 20 mg PO HS #90 tabs 01/05/25 07/04/25 Rx methenamine hippurate 1 gram tablet 1 g PO QPM #90 tabs 02/13/25 07/04/25 Rx romosozumab-aqqg 105 mg/1.17 mL 210 mg (2.34 mL) subcut MONTHLY 04/28/25 07/04/25 Rx subcutaneous syringe (Evenity) #2.34 mL doxycycline monohydrate 100 mg 100 mg PO BID #14 caps 05/22/25 07/04/25 Rx capsule albuterol sulfate 90 mcg/actuation 2 puff inhalation QID PRN 05/23/25 07/04/25 Rx aerosol inhaler Shortness Of Breath #8.5 grams spacer with face mask #1 ea 05/23/25 07/04/25 Rx amlodipine 10 mg tablet 10 mg PO DAILY #90 tabs 06/13/25 07/04/25 Rx Past Med/Surg History Problem List Hypoxia Leg wound, right Dyspnea on minimal exertion Cough Osteoporosis Elevated troponin Rhabdomyolysis (Acute) Fall (Acute) Rectal bleeding Osteoarthritis of right knee Vitamin D deficiency Dyspnea on exertion Irregular heart rate S/P endovascular aneurysm repair Acute URI Leg wound, left (Acute) Encounter for examination following treatment at hospital Cellulitis of left leg Status post left knee replacement (~03/2021) Presence of pessary Greater trochanteric bursitis of left hip Cellulitis of right lower extremity Loss of height Chronic otitis media of left ear Sensorineural hearing loss (SNHL) of left ear with restricted hearing of right ear Routine health maintenance Status post hip hemiarthroplasty (~02/2020) COPD (chronic obstructive pulmonary disease) (Chronic) Wheezing Hyperkeratosis (Acute) Atypical nevi (Acute) Back pain (Acute) [place]-Walker grade 3 cystocele (Acute) Benign essential hypertension (Chronic) Hearing loss (Acute) Incomplete emptying of bladder (Acute) Intertrigo (Acute) Osteoporosis (Chronic) Pessary maintenance (Acute) Urge and stress incontinence (Acute) Urinary tract infection, recurrent (Acute) AAA (abdominal aortic aneurysm) (Chronic) AAA measuring 45 mm in diameter just above the bifurcation, a thrombus is noted in the aneurysm sac without significant stenosis of the luminal diameter per 04/24/22 CTA Abd/Pelvis Hyperlipidemia (Chronic) Shoulder pain, acute (Acute) Frailty Osteoporosis 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/p excision Hip fracture due to osteoporosis s/p surgical intervention Medical History History of multiple pulmonary nodules Presence of pessary intact Deafness in left ear Chronic back pain Osteoarthritis History of skin cancer Hyperlipidemia Hypertension H/O gastroesophageal reflux (GERD) Chronic obstructive pulmonary disease uses prn inhaler Surgical History History of hip surgery repair of fx S/P AAA repair Percutaneous Endovascular Repair of Abdominal Aortic Aneurysm>2021/[facility] History of total knee arthroplasty Left TKA (04/15/21): SAB at L4/5 x1 attempt + PNB at [facility]. No issues noted per post-op anesthesia progress note. History of open reduction and internal fixation (ORIF) procedure Left anterior bipolar hip (03/16/20): SAB at L3/L4 (x2 attempts) at [facility] History of appendectomy History of colonoscopy History of cataract surgery right/left History of tonsillectomy History of hysterectomy LINDSEY with BSO History of bladder surgery Family History Mother Colorectal cancer Hearing loss Cancer Denies family history of Ovarian cancer Prostate cancer No family history of adverse response to anesthesia No family history of bleeding disorder Heart disease Allergies Myocardial infarction Breast cancer Hypertension Asthma Social History Smoking Status: Former smoker Tobacco Type: Cigarettes Age Started Using Tobacco: 17; Age Quit Using Tobacco: 63; packs per day: 0.2; Second Hand Exposure: Yes; Do You Dip or Chew Tobacco: No; Hx Alcohol Use: No Hx Substance Use: No Preferred Language: Irish Communication Ability: Effective Communication Ability Comment: pt deaf in left ear, hearing aid in right Visual Impairment: No Limitations Hearing Ability: Hard of Hearing [place] Required: No Beliefs That Will Affect Care: None marital status: / Current Living Situation: Alone Current Living Situation Comment: son comes to visit 3 days per week current occupational status: retired How many Children do You have: 3 Feels Safe at Home: Yes Childhood Exposure to Second-Hand Smoke: No Diet: regular caffeine: Yes (Coffee ) during the past year weight has: remained stable Dental Care, Regularly: Yes Physical Activity Frequency: Daily Seatbelt Use: always Sunscreen Use: No Do you think of yourself as: straight/heterosexual Sexual Activity: has been sexually active, but not for at least 12 months Gender Identity: Female Assistive Devices: Cane and Walker Review of Systems Review of Systems: All systems reviewed & are unremarkable except as noted in HPI & below Physical Exam Physical Exam: In general she is awake and alert seems to be easily confused, but pleasant and in no distress. HEENT normocephalic atraumatic mucous membranes moist. lungs show diffuse coarse rhonchi throughout scattered wheezing, no accessory muscle use, about 91 on room air whenever I see her. Extremities are without cyanosis clubbing or edema no calf tenderness. Neuro shows no focal deficits. Seems to be easily distractible, easily confusedson notes this is in her baseline range, although notes her baseline range is fairly variable. Results & Data Results & Data Vital Signs (Past 12 Hours) Vital Signs Pulse Resp BP Pulse Ox O2 Del Method 07/04/25 15:25 82 07/04/25 15:21 80 19 94 Room Air 07/04/25 15:21 94 Room Air 07/04/25 14:07 74 19 146/81 H 95 Room Air Code Status & VTE Plan VTE Prophylaxis Plan VTE Prophylaxis will be ordered: Yes PG Care Time/CCT Total # of Minutes Spent Total Time Spent with Patient: Total time spent is greater than 50% in coordination of care (as documented) at patient's floor/unit and/or counseling patient: Coding Level of Care Code 36381 INT INP/OBS CARE 3/75MIN Diagnoses Chronic obstructive pulmonary disease J44.9 COPD exacerbation J44.1 Hypertension I10 AAA (abdominal aortic aneurysm) I71.4
[2025-07-04] MEDS: MAGNESIUM SULFATE / D5W 1 GM/100 ML BAG IV STA (17:31)
[2025-07-04] MEDS ORDERED: ALBUT/IPRATROP 3MG/0.5MG NEB 3 ML VIAL NEB PRN (21:53)
[2025-07-04] MEDS ORDERED: POLYETHYLENE (MIRALAX) 17 GM PACK PO PRN (21:53)
[2025-07-04] MEDS ORDERED: ALBUTEROL HFA 8 GM INHALER INH PRN (21:53)
[2025-07-04] MEDS ORDERED: ALUMINUM/MAGNESIUM SUSP 30 ML UDC PO PRN (21:53)
[2025-07-04] MEDS ORDERED: MAGNESIUM HYDROXIDE SUSP 30 ML UDC PO PRN (21:53)
[2025-07-04] MEDS: ALBUT/IPRATROP 3MG/0.5MG NEB 3 ML VIAL NEB SCH (22:31)
[2025-07-04] MEDS: METHENAMINE HIPPURATE 1 GM TAB PO SCH (22:42)
[2025-07-04] MEDS: SIMVASTATIN 20 MG TAB PO SCH (22:42)
[2025-07-04] MEDS: AZITHROMYCIN 500 MG/255 ML BAG IV ONE (22:42)
[2025-07-04] MEDS: HEPARIN SOD 5,000 UNIT/0.5 ML VIAL SQ SCH (22:44)
[2025-07-05] MEDS: METOPROLOL SUCC 25MG EXT REL TAB PO SCH (08:18)
[2025-07-05] MEDS: MULTIVITAMIN TAB PO SCH (08:18)
--- NOTE | 2025-07-05 09:30 | Progress Note ---
Date of Service July 05, 2025 Assessment & Plan (1) Chronic obstructive pulmonary disease: (2) COPD exacerbation: (3) Hypertension: (4) AAA (abdominal aortic aneurysm): Plan This is an 89 year old female with a PMH of COPD, cognitive decline, HLD, HTN - coming in with shortness of breath, confusion; multiple falls Acute COPD Exacerbation - symptomatic on arrival; oxygen placed for comfort - cont Solu-medrol - cont duonebs - azithromycin Altered mental Status - per son, she does get confused - patient has hard time with recall and memory - due to multiple recent falls, will check a head CT for completeness - confusion is likely a combination of early dementia, and acute metabolic encephalopathy UTI - UA appears dirty, patient w hx of recurrent UTI's - will start Rocephin - urine cx pending HORTENSIA - creatinine up to 1.3 - baseline appears to be <1 - gentle IV hydration Multiple falls - PT/OT evals placed HTN - cont amlodipine and metoprolol - BP slightly high, may need an increase in dosage vs an additional antihypertensive Admission and Anticipated Discharge Date Admission Date: July 04, 2025 Subjective Patient states she feels good, but is confused. sometimes cannot recall basic medical history; at times thinks she's at home. Review of Systems Review of Systems: Constitutional: No Weight Change, No Fever, No Chills, No Night Sweats, No Fatigue, No Malaise ENT/Mouth: No Hearing Changes, No Ear Pain, No Nasal Congestion, No Sinus Pain, No Hoarseness, No sore throat, No Rhinorrhea, No Swallowing Difficulty Eyes: No Eye Pain, No Swelling, No Redness, No Foreign Body, No Discharge, No Vision Changes Cardiovascular: No Chest Pain, No SOB, No PND, No Dyspnea on Exertion, No Orthopnea, No Claudication, No Edema, No Palpitations Respiratory: No Cough, No Sputum, No Wheezing, No Smoke Exposure, No Dyspnea Gastrointestinal: No Nausea, No Vomiting, No Diarrhea, No Constipation, No Pain, No Heartburn, No Anorexia, No Dysphagia, No Hematochezia, No Melena, No Flatulence, No Jaundice Genitourinary: No Dysmenorrhea, No DUB, No Dyspareunia, No Dysuria, No Urinary Frequency, No Hematuria, No Urinary Incontinence, No Urgency, No Flank Pain, No Urinary Flow Changes, No Hesitancy Musculoskeletal: No Arthralgias, No Myalgias, No Joint Swelling, No Joint Stiffness, No Back Pain, No Neck Pain, No Injury History Skin: No Skin Lesions, No Pruritis, No Hair Changes, No Breast/Skin Changes, No Nipple Discharge Neuro: No Weakness, No Numbness, No Paresthesias, No Loss of Consciousness, No Syncope, No Dizziness, No Headache, No Coordination Changes, No Recent Falls Psych: No Anxiety/Panic, No Depression, No Insomnia, No Personality Changes, No Delusions, No Rumination, No SI/HI/AH/VH, No Social Issues, No Violence/Abuse Hx., No Eating Concerns +intermittently confused. Heme/Lymph: No Bruising, No Bleeding, No Transfusions History, No Lymphadenopathy Endocrine: No Polyuria, No Polydipsia, No Temperature Intolerance Physical Exam Physical Exam: VITALS: Reviewed. WEIGHT/BMI reviewed. GEN: Healthy appearing, well-developed, NAD. PSYCH: Good Judgment. AOx3. altered memory and recall HEENT -Head: NC/AT; -Eyes: PERRL, EOMI. No discharge or redn ess; -Ears: External ears are normal. Normal TMs. -Nose: Normal nares. -Mouth and throat: MMM. Normal gums, muc melissa, palate,. Good dentition. NECK: Supple, with no masses. CV: RRR, no m/r/g. LUNGS: CTAB, no w/r/c. ABD: Soft, NT/ND, NBS, no masses or organomegaly. : N/A SKIN: Warm, well perfused. No skin rashes or abnormal lesions. MSK: No deformities, Normal gait. EXT: No clubbing, cyanosis, or edema. NEURO: Ambulating with no limitations. Normal muscle strength and tone. No focal deficits. Results & Data Vital Signs (Past 12 Hours) Vital Signs Temp Pulse Resp BP Pulse Ox O2 Del Method O2 Flow Rate 07/05/25 08:50 Nasal Cannula 2 07/05/25 07:39 36.5 C 91 H 16 148/64 H 91 Nasal Cannula 2 07/05/25 07:01 77 16 95 Nasal Cannula 2 07/04/25 22:55 84 18 93 Nasal Cannula 2 07/04/25 21:50 Nasal Cannula 2 07/04/25 21:50 36.5 C 88 18 134/68 95 Nasal Cannula 2 PG Care Time/CCT Total # of Minutes Spent Total Time Spent with Patient: Total time spent is greater than 50% in coordination of care (as documented) at patient's floor/unit and/or counseling patient: Coding Level of Care Code 05745 SUB INP/OBS CARE 2/35MIN Diagnoses Chronic obstructive pulmonary disease J44.9 COPD exacerbation J44.1 Hypertension I10 AAA (abdominal aortic aneurysm) I71.4
[2025-07-05] MEDS: cefTRIAXone SODIUM 1,000 MG/50 ML BAG IV SCH (09:49)
[2025-07-05] MEDS: SODIUM CHLORIDE 0.9% 500 ML IV SCH (09:50)
--- NOTE | 2025-07-05 10:45 | CT Scan Report ---
CT head/brain wo con CLINICAL HISTORY: 89 years-old Female with AMS; falls. Acutely altered mental status with recent fal l TECHNIQUE: Multiple axial CT images of the head were obtained without contrast. A dose lowering tech nique was utilized adhering to the principles of ALARA. CT DOSE: 2108.77 mGy.cm COMPARISON: 07/03/2024 FINDINGS: No acute intracranial hemorrhage, midline shift, intracranial mass, hydrocephalus, territorial ischem ia or abnormal extra-axial collection. Involutional changes with chronic microvascular ischemic disea se. The study is motion degraded. The calvarium is intact. Mild mucosal thickening of the paranasal sinuses. The mastoid air cells are clear. IMPRESSION: Motion degraded exam without acute intracranial abnormality or calvarial fracture identi fied. ACT 112: Negative or not required by law. The above report was generated using voice recognition software. It may contain grammatical, syntax o r spelling errors. Electronically signed by: Ulises Hilliard M.D. 07/05/2025 10:43 AM
--- NOTE | 2025-07-05 12:29 | Electrocardiogram Report ---
Test Reason : Blood Pressure : */* mmHG Vent. Rate : 75 BPM Atrial Rate : 75 BPM P-R Int : 226 ms QRS Dur : 88 ms QT Int : 396 ms P-R-T Axes : 44 17 45 degrees QTcB Int : 442 ms Sinus rhythm with 1st degree A-V block Abnormal ECG When compared with ECG of 09-May-2025 13:28, (unconfirmed) No significant change was found Confirmed by Uvaldo Hooper ([id number]) on 07/05/2025 12:29:19 PM Referred By: Confirmed By: Uvaldo Hooper
[2025-07-05] MEDS: ONDANSETRON INJ 2 MG/ML 2 ML VIAL IV PRN (13:12)
[2025-07-05] MEDS: ACETAMINOPHEN 325 MG TAB PO PRN (18:05)
[2025-07-05] MEDS: AZITHROMYCIN 250 MG in DEXTROSE 5% 250 ML IV SCH (20:35)
[2025-07-06 07:12] LABS: Hematocrit (blood only) 36.9 % (37.0-47.0); Hemoglobin 12.6 g/dl (12.0-16.0); Mean Corpuscular Hemoglobin 31.4 pg (25.0-34.0); Mean Corpuscular Volume 92.0 fL (80.0-100.0); Platelet Count 267 K/uL (130-400); RDW Standard Deviation 45.5 fL (36.4-46.3); Red Blood Count 4.01 M/uL (4.20-5.40); White Blood Count 10.78 K/ul (4.8-10.8)
[2025-07-06 07:44] LABS: Anion Gap 7.0 (3-11); Blood Urea Nitrogen 32.0 mg/dl (6-23); Calcium 9.4 mg/dl (8.6-10.3); Carbon Dioxide 31.0 mmol/L (21-32); Chloride 100.0 mmol/L (98-107); Creatinine Clr Calc Pharmacy 28.0 ml/min; Glucose 126.0 mg/dl (70-99(Fasting)); Potassium 4.8 mmol/L (3.5-5.1); Sodium 138.0 mmol/L (136-145)
--- NOTE | 2025-07-06 16:28 | Progress Note ---
Date of Service July 06, 2025 Assessment & Plan (1) Chronic obstructive pulmonary disease: (2) COPD exacerbation: (3) Hypertension: (4) AAA (abdominal aortic aneurysm): Plan This is an 89 year old female with a PMH of COPD, cognitive decline, HLD, HTN - coming in with shortness of breath, confusion; multiple falls Acute COPD Exacerbation - symptomatic on arrival; oxygen placed for comfort - cont Solu-medrol - cont duonebs - azithromycin; switch to oral Altered mental Status - per son, she does get confused - patient has hard time with recall and memory - due to multiple recent falls, will check a head CT for completeness - confusion is likely a combination of early dementia, and acute metabolic encephalopathy - patient's son lives very close by, next door and checks on her often UTI - UA appears dirty, patient w hx of recurrent UTI's - will start Rocephin - urine cx pending HORTENSIA - creatinine up to 1.3 - baseline appears to be <1 - gentle IV hydration Multiple falls - PT/OT evals placed HTN - cont amlodipine and metoprolol - BP slightly high, may need an increase in dosage vs an additional antihype rtensive Admission and Anticipated Discharge Date Admission Date: July 04, 2025 Subjective continues to be confused, though recalls some things still requiring supplemental oxygen for comfort Review of Systems Review of Systems: Constitutional: No Weight Change, No Fever, No Chills, No Night Sweats, No Fatigue, No Malaise ENT/Mouth: No Hearing Changes, No Ear Pain, No Nasal Congestion, No Sinus Pain, No Hoarseness, No sore throat, No Rhinorrhea, No Swallowing Difficulty Eyes: No Eye Pain, No Swelling, No Redness, No Foreign Body, No Discharge, No Vision Changes Cardiovascular: No Chest Pain, No SOB, No PND, No Dyspnea on Exertion, No Orthopnea, No Claudication, No Edema, No Palpitations Respiratory: No Cough, No Sputum, No Wheezing, No Smoke Exposure, No Dyspnea Gastrointestinal: No Nausea, No Vomiting, No Diarrhea, No Constipation, No Pain, No Heartburn, No Anorexia, No Dysphagia, No Hematochezia, No Melena, No Flatulence, No Jaundice Genitourinary: No Dysmenorrhea, No DUB, No Dyspareunia, No Dysuria, No Urinary Frequency, No Hematuria, No Urinary Incontinence, No Urgency, No Flank Pain, No Urinary Flow Changes, No Hesitancy Musculoskeletal: No Arthralgias, No Myalgias, No Joint Swelling, No Joint Stiffness, No Back Pain, No Neck Pain, No Injury History Skin: No Skin Lesions, No Pruritis, No Hair Changes, No Breast/Skin Changes, No Nipple Discharge Neuro: No Weakness, No Numbness, No Paresthesias, No Loss of Consciousness, No Syncope, No Dizziness, No Headache, No Coordination Changes, No Recent Falls Psych: No Anxiety/Panic, No Depression, No Insomnia, No Personality Changes, No Delusions, No Rumination, No SI/HI/AH/VH, No Social Issues, No Violence/Abuse Hx., No Eating Concerns +intermittently confused. Heme/Lymph: No Bruising, No Bleeding, No Transfusions History, No Lymphadenopathy Endocrine: No Polyuria, No Polydipsia, No Temperature Intolerance Physical Exam Physical Exam: VITALS: Reviewed. WEIGHT/BMI reviewed. GEN: Healthy appearing, well-developed, NAD. PSYCH: Good Judgment. AOx3. altered memory and recall HEENT -Head: NC/AT; -Eyes: PERRL, EOMI. No discharge or redn ess; -Ears: External ears are normal. Normal TMs. -Nose: Normal nares. -Mouth and throat: MMM. Normal gums, muc melissa, palate,. Good dentition. NECK: Supple, with no masses. CV: RRR, no m/r/g. LUNGS: CTAB, no w/r/c. ABD: Soft, NT/ND, NBS, no masses or organomegaly. : N/A SKIN: Warm, well perfused. No skin rashes or abnormal lesions. MSK: No deformities, Normal gait. EXT: No clubbing, cyanosis, or edema. NEURO: Ambulating with no limitations. Normal muscle strength and tone. No focal deficits. Results & Data Vital Signs (Past 12 Hours) Vital Signs Temp Pulse Resp BP Pulse Ox Pulse Ox O2 Del Method 07/06/25 14:50 36.5 C 78 18 121/69 90 Nasal Cannula 07/06/25 13:25 89 16 93 Nasal Cannula 07/06/25 12:43 89 L 07/06/25 09:04 Nasal Cannula 07/06/25 07:41 36.4 C L 68 16 132/64 92 Nasal Cannula 07/06/25 07:33 36.5 C 69 19 127/67 93 Nasal Cannula 07/06/25 07:05 102 H 16 87 L Room Air O2 Flow Rate O2 Flow Rate 07/06/25 14:50 3 07/06/25 13:25 07/06/25 12:43 2 07/06/25 09:04 2 07/06/25 07:41 2 07/06/25 07:33 2 07/06/25 07:05 PG Care Time/CCT Total # of Minutes Spent Total Time Spent with Patient: Total time spent is greater than 50% in coordination of care (as documented) at patient's floor/unit and/or counseling patient: Coding Level of Care Code 39810 SUB INP/OBS CARE 2/35MIN Diagnoses Chronic obstructive pulmonary disease J44.9 COPD exacerbation J44.1 Hypertension I10 AAA (abdominal aortic aneurysm) I71.4
[2025-07-06] MEDS: MELATONIN 3 MG TAB PO PRN (20:45)
[2025-07-06] MEDS: AZITHROMYCIN 250 MG TAB PO SCH (20:45)
[2025-07-07 09:40] LABS: Hematocrit (blood only) 41.6 % (37.0-47.0); Hemoglobin 14.0 g/dl (12.0-16.0); Mean Corpuscular Hemoglobin 31.5 pg (25.0-34.0); Mean Corpuscular Volume 93.7 fL (80.0-100.0); Platelet Count 300 K/uL (130-400); RDW Standard Deviation 46.4 fL (36.4-46.3); Red Blood Count 4.44 M/uL (4.20-5.40); White Blood Count 8.45 K/ul (4.8-10.8)
[2025-07-07 09:55] LABS: Anion Gap 10.0 (3-11); Blood Urea Nitrogen 33.0 mg/dl (6-23); Calcium 9.5 mg/dl (8.6-10.3); Carbon Dioxide 29.0 mmol/L (21-32); Chloride 101.0 mmol/L (98-107); Creatinine Clr Calc Pharmacy 27.0 ml/min; Glucose 185.0 mg/dl (70-99(Fasting)); Potassium 4.3 mmol/L (3.5-5.1); Sodium 140.0 mmol/L (136-145)
[2025-07-07 10:21] LABS: Immature Granulocytes # (auto) 0.06 K/uL (0.01-0.20); Immature Granulocytes % (auto) 0.7 %
--- NOTE | 2025-07-07 10:56 | Hospitalist Progress Note ---
"Date of Service July 07, 2025 Assessment & Plan (1) Chronic obstructive pulmonary disease: (2) COPD exacerbation: (3) Hypertension: (4) AAA (abdominal aortic aneurysm): Plan This is an 89 year old female with a PMH of COPD, cognitive decline, HLD, HTN who presented to the ED on 07/04/2025 for shortness of breath #Acute COPD exacerbation CXR w/o pneumonia. CBC w/o leukocytosis. BMP stable renal function & electrolytes. Solu-Medrol decreased to 40mg IV daily on 07/07. --> prednisone taper on dc Azithromycin through 07/08 Continue Duonebs q6h scheduled. O2 prn to maintain oxygen sat > 90%; on 2L wean when able. #Altered mental Status | Recurrent Falls per son, she does get confused; patient has hard time with recall and memory; recurrent falls @ home likely secondary to combination of early dementia & acute metabolic encephalopathy. PT/OT consulted, recommending rehab. Discussed w/ CM & patient to go to [facility] on 07/10. #Patient was receiving Rocephin for abnormal urinalysis, but it is noted that that UA was from 07/03/2024-discontinue ceftriaxone #HORTENSIA Baseline creatinine: ~ < 1, has been continuing to slowly increase- 1.39 Given additional 1L NSS encourage PO Intake. Continue to trend #HTN - cont amlodipine and metoprolol DVT prophylaxis: Heparin Code: full Updated son at bedside 07/07. Admission and Anticipated Discharge Date Admission Date: July 06, 2025 Supervising Physician Co-Signing Physician Notes PA Supervision Note: I did not personally see or examine the patient today, but I verified all sanon points of CHERIE Raza's assessment and plan with the following exceptions/additions: None Subjective Rachelle was seen & examined this morning with her son at bedside. She reports that she is feeling well today. Denies any CP or SOB. She was on nasal cannula at time of my encounter. She states her cough is still ongoing and she is unsure whether it is improving or not. Discussed discharge planning w/ son & he is not opposed to her going to rehab on dc. Physical Exam Physical Exam: General: NAD, VS: BP 146/72; P63; T36.8C; R16 Resp: normal respiratory effort, expiratory wheezing throughout lung vasquez CV: RRR, no murmur Extremities: Moves all extremities, no edema Neuro: A&O x3, Skin: intact, no lesions noted Results & Data Results & Data Vital Signs (Past 12 Hours) Vital Signs Temp Pulse Pulse Resp BP BP Pulse Ox 07/07/25 10:26 07/07/25 08:06 36.5 C 68 18 124/82 93 07/07/25 07:15 37.1 C 76 16 156/70 H 96 07/07/25 00:09 91 H 18 94 07/06/25 23:20 07/06/25 23:20 36.6 C 79 18 124/69 92 O2 Del Method O2 Flow Rate 07/07/25 10:26 Nasal Cannula 2 07/07/25 08:06 Nasal Cannula 2 07/07/25 07:15 Room Air 07/07/25 00:09 Nasal Cannula 2 07/06/25 23:20 Nasal Cannula 2 07/06/25 23:20 Nasal Cannula 2 PG Care Time/CCT Total # of Minutes Spent Total Time Spent with Patient: Total time spent is greater than 50% in coordination of care (as documented) at patient's floor/unit and/or counseling patient: Coding Level of Care Code 14007 SUB INP/OBS CARE 2/35MIN Diagnoses Chronic obstructive pulmonary disease J44.9 COPD exacerbation J44.1 Hypertension I10 AAA (abdominal aortic aneurysm) I71.4"
[2025-07-07] MEDS: SODIUM CHLORIDE 0.9% 1,000 ML IV SCH (15:29)
[2025-07-08 07:07] LABS: Hematocrit (blood only) 40.8 % (37.0-47.0); Hemoglobin 13.9 g/dl (12.0-16.0); Mean Corpuscular Hemoglobin 32.0 pg (25.0-34.0); Mean Corpuscular Volume 93.8 fL (80.0-100.0); Platelet Count 246 K/uL (130-400); RDW Standard Deviation 46.0 fL (36.4-46.3); Red Blood Count 4.35 M/uL (4.20-5.40); White Blood Count 9.18 K/ul (4.8-10.8)
[2025-07-08 07:27] LABS: Anion Gap 7.0 (3-11); Blood Urea Nitrogen 32.0 mg/dl (6-23); Calcium 9.5 mg/dl (8.6-10.3); Carbon Dioxide 30.0 mmol/L (21-32); Chloride 103.0 mmol/L (98-107); Creatinine Clr Calc Pharmacy 26.8 ml/min; Glucose 88.0 mg/dl (70-99(Fasting)); Magnesium 2.4 mg/dl (1.7-2.4); Potassium 4.5 mmol/L (3.5-5.1); Sodium 140.0 mmol/L (136-145)
--- NOTE | 2025-07-08 08:06 | Hospitalist Progress Note ---
Date of Service July 08, 2025 Assessment & Plan (1) Acute exacerbation of chronic obstructive pulmonary disease: Plan #Acute exacerbation of chronic bronchitis Presented with progressive shortness of breath, new oxygen requirement, productive cough; no PFT results available for review; continues to improve and is stable for discharge to SNF -VS every shift with continuous oxygen monitor -Provide oxygen supplementation to maintain oxygen saturation 88-92% to reduce risk of carbon dioxide retention -Continue home inhalers -Continue Prednisone 40 mg p.o. daily through 07/09 -Administer final dose of Azithromycin 500 mg p.o. on 07/08 #CKD Stage 3b At initial presentation the patient was noted to have an elevated creatinine however on further review of outpatient laboratory assessment performed in 03/2025, they had a similar measure of renal function, suggesting this is a new stage of CKD rather than an acute kidney injury; the patient has a new diagnosis of chronic kidney disease stage IIIb #Geriatric frailty Progressive increased frequency of falls, and increasing weakness; most likely due to muscle atrophy with reduced activity and progressive chronic disease; recommended to be [facility] to [facility] facility Admission and Anticipated Discharge Date Admission Date: July 06, 2025 Subjective Ms. 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 No acute overnight events; the patient continues to have a productive cough, but otherwise feels well this morning Review of Systems Review of Systems: Review of constitutional, pulmonary, cardiovascular systems was unremarkable except for pertinent positive and negative findings discussed above Physical Exam Physical Exam: General: Elderly female in no acute distress Vital Signs: Reviewed; requiring 0.5 to 2 L by nasal cannula to maintain O2 saturation greater than 90% HEENT: Moist mucous membranes Pulmonary: Symmetric chest wall excursion without restriction; clear to auscultation bilaterally with the exception of referred upper airway sounds Cardiovascular: Regular rate and rhythm without murmurs, rubs, or gallops; S1 and S2 normal; right radial pulse 2+ Results & Data Results & Data Vital Signs (Past 12 Hours) Vital Signs Temp Pulse Pulse Resp BP Pulse Ox O2 Del Method 07/08/25 07:11 65 16 91 Nasal Cannula 07/07/25 21:52 36.5 C 75 18 131/76 93 Room Air O2 Flow Rate 07/08/25 07:11 0.5 07/07/25 21:52 PG Care Time/CCT Total # of Minutes Spent Total Time Spent with Patient: Total time spent is greater than 50% in coordination of care (as documented) at patient's floor/unit and/or counseling patient: Coding Level of Care Code 99525 SUB INP/OBS CARE 2/35MIN Diagnoses Acute exacerbation of chronic obstructive pulmonary disease J44.1
[2025-07-08] MEDS: AZITHROMYCIN 250 MG TAB PO ONE (12:52)
[2025-07-08] MEDS: predniSONE 20 MG TAB PO SCH (12:52)
--- NOTE | 2025-07-09 07:25 | Hospitalist Progress Note ---
Date of Service July 09, 2025 Assessment & Plan (1) Acute exacerbation of chronic obstructive pulmonary disease: Plan #Acute exacerbation of chronic bronchitis Presented with progressive shortness of breath, new oxygen requirement, productive cough; no PFT results available for review; continues to improve and is stable for discharge to SNF -VS every shift with continuous oxygen monitor -Provide oxygen supplementation to maintain oxygen saturation 88-92% to reduce risk of carbon dioxide retention -Continue home inhalers -Continue Prednisone 40 mg p.o. daily through 07/09 -Completed course of Azithromycin 500 mg p.o. on 07/08 #CKD Stage 3b At initial presentation the patient was noted to have an elevated creatinine however on further review of outpatient laboratory assessment performed in 03/2025, they had a similar measure of renal function, suggesting this is a new stage of CKD rather than an acute kidney injury; the patient has a new diagnosis of chronic kidney disease stage IIIb #Geriatric frailty Progressive increased frequency of falls, and increasing weakness; most likely due to muscle atrophy with reduced activity and progressive chronic disease; recommended to be discharged to group home facility Admission and Anticipated Discharge Date Admission Date: July 06, 2025 Subjective Ms. 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 No acute overnight events; the patient continues to have a productive cough, but otherwise feels well this morning Results & Data Results & Data Vital Signs (Past 12 Hours) Vital Signs Temp Pulse Pulse Resp BP Pulse Ox O2 Del Method 07/09/25 07:14 70 18 93 Room Air 07/09/25 02:02 72 16 90 Room Air 07/08/25 22:27 36.3 C L 99 H 20 167/88 H 91 Room Air 07/08/25 20:46 72 18 91 Room Air 07/08/25 20:01 Room Air PG Care Time/CCT Total # of Minutes Spent Total Time Spent with Patient: Total time spent is greater than 50% in coordination of care (as documented) at patient's floor/unit and/or counseling patient: Coding Diagnoses Acute exacerbation of chronic obstructive pulmonary disease J44.1
[2025-07-09 07:47] VITALS: RESP 16
[2025-07-09 07:52] VITALS: BP 151/82; PULSE 82; TEMP 96.6; O2SAT 100
--- NOTE | 2025-07-09 16:06 | Discharge Summary ---
Discharge Summary Date of Service July 09, 2025 Principal Dx & Hospital Course #1 = Principal Diagnosis (1) Acute exacerbation of chronic obstructive pulmonary disease: Plan #Acute exacerbation of chronic bronchitis Presented with progressive shortness of breath, new oxygen requirement, productive cough; no PFT results available for review; continues to improve and is stable for discharge to SNF -VS every shift with continuous oxygen monitor -Provide oxygen supplementation to maintain oxygen saturation 88-92% to reduce risk of carbon dioxide retention -Continue home inhalers -Completed Prednisone 40 mg p.o. daily through 07/09 -Completed course of Azithromycin 500 mg p.o. on 07/08 #CKD Stage 3b At initial presentation the patient was noted to have an elevated creatinine however on further review of outpatient laboratory assessment performed in 03/2025, they had a similar measure of renal function, suggesting this is a new stage of CKD rather than an acute kidney injury; the patient has a new diagnosis of chronic kidney disease stage IIIb #Geriatric frailty Progressive increased frequency of falls, and increasing weakness; most likely due to muscle atrophy with reduced activity and progressive chronic disease; improved independence during hospitalization, discharged home with home health Admission HPI Per Admitting Provider pt is a pleasant 89F onset sob yesterday - First got sick yesterday afternoon. Vomited once. After that, it has really been more respiratory symptoms. No further nausea and vomiting. No diarrhea. She has had a cough, shortness of breath, and appearing dyspneic. She was seen at her PCPs office earlier today where she was found to be in respiratory distress, she was sent to the ER. We have been asked to admit for COPD exacerbation. Discharge Exam General: Elderly female in no acute distress Vital Signs: Reviewed; no supplemental oxygen requirement at this time HEENT: Moist mucous membranes Pulmonary: Symmetric chest wall excursion without restriction; clear to ausculta tion bilaterally with the exception of referred upper airway sounds Cardiovascular: Regular rate and rhythm without murmurs, rubs, or gallops; S1 and S2 normal; right radial pulse 2+ Discharge Plan Discharge Items Patient Disposition: Home - Home Health Services Reason For Visit: COPD EXACERBATION Discharge Diagnosis: Acute exacerbation of chronic obstructive pulmonary disease Condition on Discharge: Fair Activity: Per Instructions section Non-emergency contact: Primary Care Provider Call non-emergency contact if: you have any medication questions and your symptoms worsen Follow-up/Referrals: Pavithra Segovia MD [Primary Care Provider] - Diet: Regular Fluids: 2000ml (8 cups) Addtl Attending Provider Instructions: You were admitted to [facility] for an acute exacerbation of chronic obstructive pulmonary disease. Your initial exacerbation has significantly improved; at this time you are not requiring any supplemental oxygen at rest or with activity, and you are able to navigate the medical floor without assistance. With these factors, your insurance is no longer authorizing assisted facility placement. After further discussion at bedside, you are agreeable to discharge home with home health. This to be coordinated prior to your discharge. You have no further new medications required for continued treatment of your COPD exacerbation, please continue your usual inhaler therapy at home. During your hospitalization there was discussion of possible acute exacerbation of underlying normal renal function however based on previous laboratory assessment over the past few months, it appears that you have new diagnosis of CKD stage IIIb; we recommend close follow-up with your primary care provider to discuss medication changes, dietary changes, and other lifestyle modifications that may be necessary to prevent further progression of disease. Thank you for choosing [facility] as your healthcare provider. Pending Studies at Discharge: No Stand-Alone Forms: My [facility] Medications and DC Order Prescriptions: Continued metoprolol succinate 25 mg tablet extended release 24 hr 25 mg PO QAM Qty: 90 3RF simvastatin 20 mg tablet 20 mg PO HS Qty: 90 3RF methenamine hippurate 1 gram tablet 1 g PO QPM Qty: 90 1RF Evenity 105 mg/1.17 mL syringe 210 mg subcut MONTHLY Qty: 2.34 11RF albuterol sulfate 90 mcg/actuation HFA aerosol inhaler 2 puff INHALATION QID PRN (Reason: Shortness Of Breath) Qty: 8.5 3RF (DME) spacer with face mask See Rx Instructions .Route .MEDSUPPLY Qty: 1 0RF Rx Instructions: As directed amlodipine 10 mg tablet 10 mg PO DAILY Qty: 90 3RF cannabidiol PO PRN (Reason: Unknown) multivitamin Tablet 1 tab PO QAM Discontinued doxycycline monohydrate 100 mg capsule 100 mg PO BID Qty: 14 0RF Discharge Orders: Discharge Order (Routine); Ordered 07/09/25 Ordered By: Umair Boateng/Other Patient Handouts: COPD Using Inhalers, What Is COPD Admission Data Admit Date/Time: 07/06/25 16:23 Attending Provider: Umair King Admit Provider: Jake Lilly Primary Care Provider: Pavithra Segovia Other Providers: Jake Lilly; [facility]; [facility],Home Healthcare Other Interventions: Discharge Summary Assessment (RN) Last Done: 07/09/25 10:05 Hospital Stay Data Consultations 07/04/25 16:41 ED Decision to Admit Stat Diagnostic Imagining Performed 07/05/25 09:[address] [CT head/brain wo con] Routine Pending Results Patient Have Any Pending Studies at Discharge: No Discharge Instructions Given to Patient (Per Discharging Provider) You were admitted to [facility] for an acute exacerbation of chronic obstructive pulmonary disease. Your initial exacerbation has significantly improved; at this time you are not requiring any supplemental oxygen at rest or with activity, and you are able to navigate the medical floor without assistance. With these factors, your insurance is no longer authorizing assisted facility placement. After further discussion at bedside, you are agreeable to discharge home with home health. This to be coordinated prior to your discharge. You have no further new medications required for continued treatment of your COPD exacerbation, please continue your usual inhaler therapy at home. During your hospitalization there was discussion of possible acute exacerbation of underlying normal renal function however based on previous laboratory assessment over the past few months, it appears that you have new diagnosis of CKD stage IIIb; we recommend close follow-up with your primary care provider to discuss medication changes, dietary changes, and other lifestyle modifications that may be necessary to prevent further progression of disease. Thank you for choosing [facility] as your healthcare provider. Total Time Total Time Spent Total Time Spent (In Minutes): I personally spent 50 minutes in the coordination of the patient's discharge including bedside counselling, physical exam, medication reconciliation, and coordination of home health with the assistance of case management Coding Level of Care Code 40062 INP/OBS DISCH >30 MIN Diagnoses Acute exacerbation of chronic obstructive pulmonary disease J44.1 Home Health Attestation I certify that this patient is under my care and that I, or a physicians animal care assistant working with me, had a face to-face encounter that meets the home health [id number] encounter requirements with this patient. The encounter with the patient was in whole, or in part, for the following medical condition, which is the primary reason for home health care (list medi heather condition): COPD I certify that, based on my findings, the following services are medically necessary home health services: My clinical findings support the need for the above services because: Home Safety Assessment Medication Compliance and Monitoring Effective of New Medications OT Assess ADL Status and Restore Function w ADLs PT Assessment for Endurance / Balance / Strength PT Eval for Safety and Mobility PT Eval for Safety, Gait Training, Assistive Devices PT Gait and Balance Training, Strengthening and Safety Skilled Nsg Assessment Skilled Nsg Assess Pt Illness, Disease and Sx Monitoring Teach on Disease Management and Interventions Further, I certify that my clinical findings support that this patient is homebound (i.e. absences from home require considerable and taxing effort and are for medical reasons or christianity services or infrequently or of short duration when for other reasons) because: Transportation Assistance/Unable to Leave Home Unassisted Certification for Home Health Services: Based on the above findings, I certify that this patient is confined to the home and needs intermittent assisted care, physical therapy and/or speech therapy or continues to need occupational therapy. The patient is under my care, and I have initiated the establishment of the plan of care. This patient will be followed by a physician who will periodically review the plan of care.
== END 2025-07-09 12:14 | disposition home health service (06) | DRG 190 ==
LOC: 3N 13:53 → ED 13:53 → SUATTDRO 16:45 → 3N 21:34 → SUATTDRO 07-06 16:23